=== PATIENT | male | born 1975 | race Caucasian/White ===

== ENCOUNTER 2023-01-22 11:29 | Inpatient (IN) | payer MEDICAID, OTHER ==
[~2023-01-22] VITALS: Ht 177.8 cm; Wt 67.4 kg
[~2023-01-22 11:29] MED LIST: ACHD5005 PO; AMLODIPINE; LISINOPRIL; ZYRTEC
[2023-01-22] MEDS ORDERED: cefTRIAXone IV/IM 1,000 MG in NS (IVPB) 50 ML 50 ML IV ONE (11:45)
[2023-01-22] MEDS ORDERED: RT-ALBUTEROL/IPRATROPIUM 3 ML (DUONEB) VIAL INH ONE (11:45)
[2023-01-22] MEDS ORDERED: NS IV 1000 ML 1,000 ML IV SCH (11:45)
[2023-01-22] MEDS ORDERED: methylPREDNISolone 125 MG (Solu-MEDROL) VIAL IVP ONE (11:45)
--- NOTE | 2023-01-22 11:47 | ED Respiratory ---
General Chief Complaint: Respiratory Problems Stated Complaint: SOA Nursing Triage Note: ARRIVED VIA AMB TO ROOM 5 WITH COMPLAINTS OF SOA AND A COUGH FOR SEVERAL DAYS. STATES HIS SIDES HURT FROM COUGHING. Source: patient Exam Limitations: no limitations History of Present Illness Date Seen by Provider: Jan 22, 2023 Time Seen by Provider: 11:45 Initial Comments Patient is a 47-year-old male with a history of COPD, smoking who presents to ED with shortness of breath and cough. He states symptoms have been ongoing for the past month progressive got worse over the past week. Report mucus production with this cough. Reports bilateral rib pain secondary to the cough. Increasing short of breath with walking or lying. Denies any leg swelling. No known history of coronary artery disease, CHF. Does have a nebulizer at home but has not been using any breathing treatments. Patient states he has been using cough syrup at home to help with sleep. Patient oxygen level 88% on room air on arrival. Patient Was placed on 2 L with improvement. Decreased breath sounds bilateral. Denies fever, chills, sore throat, ear pain, headache, dizziness, chest pain. Patient does take lisinopril for hypertension. Difficulty talking in complete senses Allergies and Home Medications Allergies Coded Allergies: No Known Drug Allergies (Unverified , 03/24/15) Patient Home Medication List Home Medication List Reviewed: Yes Hydrocodone Bit/Acetaminophen (Lortab 5 Mg Tablet) 1 Each Tablet, 2 EACH PO Q6H PRN for PAIN Prescribed by: CUBA REESE on 11/29/152106 [Amlodipine] , (Reported) Entered as Reported by: FERNANDO PARKER on 03/24/158 [Lisinopril] , (Reported) Entered as Reported by: FERNANDO PARKER on 03/24/158 [Zyrtec] , (Reported) Entered as Reported by: FERNANDO PARKER on 03/24/158 Review of Systems Review of Systems Constitutional: No chills, No diaphoresis, No malaise, No weakness EENTM: No ear pain, No blurred vision Gastrointestinal: No abdominal pain, No nausea, No vomiting Genitourinary: No decreased output, No discharge, No dysuria, No frequency Musculoskeletal: No back pain, No joint pain, No joint swelling, No muscle pain, No muscle stiffness Skin: No change in color, No change in hair/nails All Other Systems Reviewed Negative Unless Noted: Yes Past Exinikm-Llwdhe-Vqktfl Hx Patient Social History Tobacco Use?: Yes Smoking Status: Former Smoker Substance use?: No Substance frequency: Once in a while Alcohol Use?: Yes Alcohol Frequency: Once in a while Immunizations Up To Date Tetanus Booster (TDap): Unknown Seasonal Allergies Seasonal Allergies: Yes Past Medical History Hypertension Gastroesophageal Reflux Physical Exam Vital Signs - First Documented 01/22/23 01/22/23 01/22/23 11:30 11:32 12:23 Temp 39.6 Pulse 127 Resp 18 B/P (MAP) 197/100 (132) Pulse Ox 87 O2 Delivery Room Air O2 Flow Rate 2.00 FiO2 50 Capillary Refill : Less Than 3 Seconds Height: 5'10" Weight: 175lbs. oz. 79.608902oe; 22.00 BMI Method:Stated General Appearance: mild distress, other Eyes: Bilateral Eye Normal Inspection, Bilateral Eye PERRL, Bilateral Eye EOMI HEENT: PERRL/EOMI, normal ENT inspection, TMs normal, pharynx normal Neck: non-tender, full range of motion, supple Respiratory: decreased breath sounds, accessory muscle use, other Cardiovascular: no gallop, no JVD, tachycardia Gastrointestinal: normal bowel sounds, non tender, soft, no organomegaly Extremities: normal range of motion, non-tender, normal inspection, no pedal edema, no calf tenderness Neurologic/Psychiatric: rod buster II-XII nml as tested, no motor/sensory deficits, alert, normal mood/affect, oriented x 3 Skin: normal color, warm/dry Focused Exam Lactate Level 01/22/23 11:45: Lactic Acid Level 1.64 Lactic Acid Level Laboratory Tests Test 01/22/23 11:45 Lactic Acid Level 1.64 MMOL/L (0.50-2.00) Progress/Results/Core Measures Suspected Sepsis SIRS Temperature: Pulse: 127 Respiratory Rate: 18 Laboratory Tests 01/22/23 11:45: White Blood Count 22.7H Blood Pressure 197 /100 Mean: 132 01/22/23 11:45: Lactic Acid Level 1.64 Laboratory Tests 01/22/23 11:45: Creatinine 0.76, INR Comment 1.2, Platelet Count 433H, Total Bilirubin 0.8 Results/Orders Lab Results Laboratory Tests Test 01/22/23 11:45 01/22/23 11:50 01/22/23 11:57 Range/Units White Blood Count 22.7 H 4.3-11.0 10^3/uL Red Blood Count 4.97 4.30-5.52 10^6/uL Hemoglobin 13.7 13.3-17.7 g/dL Hematocrit 41 40-54 % Mean Corpuscular Volume 83 80-99 fL Mean Corpuscular Hemoglobin 28 25-34 pg Mean Corpuscular Hemoglobin Concent 33 32-36 g/dL Red Cell Distribution Width 12.5 10.0-14.5 % Platelet Count 433 H 130-400 10^3/uL Mean Platelet Volume 8.7 L 9.0-12.2 fL Immature Granulocyte % (Auto) 1 % Neutrophils (%) (Auto) 86 H 42-75 % Lymphocytes (%) (Auto) 3 L 12-44 % Monocytes (%) (Auto) 9 0-12 % Eosinophils (%) (Auto) 1 0-10 % Basophils (%) (Auto) 1 0-10 % Neutrophils # (Auto) 19.5 H 1.8-7.8 10^3/uL Lymphocytes # (Auto) 0.6 L 1.0-4.0 10^3/uL Monocytes # (Auto) 2.1 H 0.0-1.0 10^3/uL Eosinophils # (Auto) 0.2 0.0-0.3 10^3/uL Basophils # (Auto) 0.1 0.0-0.1 10^3/uL Immature Granulocyte # (Auto) 0.2 H 0.0-0.1 10^3/uL Neutrophils % (Manual) 84 % Lymphocytes % (Manual) 3 % Monocytes % (Manual) 5 % Eosinophils % (Manual) 2 % Band Neutrophils 4 % Reactive Lymphocytes 2 % Clumped Platelets SLIGHT Prothrombin Time 15.3 H 12.2-14.7 SEC INR Comment 1.2 0.8-1.4 Activated Partial Thromboplast Time 35 24-35 SEC Sodium Level 135 135-145 MMOL/L Potassium Level 2.7 L 3.6-5.0 MMOL/L Chloride Level 94 L 98-107 MMOL/L Carbon Dioxide Level 27 21-32 MMOL/L Anion Gap 14 5-14 MMOL/L Blood Urea Nitrogen 6 L 7-18 MG/DL Creatinine 0.76 0.60-1.30 MG/DL Estimat Glomerular Filtration Rate 110 BUN/Creatinine Ratio 8 Glucose Level 118 H 70-105 MG/DL Lactic Acid Level 1.64 0.50-2.00 MMOL/L Calcium Level 9.4 8.5-10.1 MG/DL Corrected Calcium 10.0 8.5-10.1 MG/DL Total Bilirubin 0.8 0.1-1.0 MG/DL Aspartate Amino Transf (AST/SGOT) 17 5-34 U/L Alanine Aminotransferase (ALT/SGPT) 17 0-55 U/L Alkaline Phosphatase 96 40-136 U/L Troponin I < 0.028 <0.028 NG/ML B-Type Natriuretic Peptide 132.4 H <100.0 PG/ML Total Protein 6.9 6.4-8.2 GM/DL Albumin 3.2 3.2-4.5 GM/DL Influenza Type A (RT-PCR) Not Detected Not Detecte Influenza Type B (RT-PCR) Not Detected Not Detecte SARS-CoV-2 RNA (RT-PCR) Not Detected Not Detecte Blood Gas Puncture Site Blood Gas Patient Temperature Arterial Blood pH 7.52 H 7.37-7.43 Arterial Blood Partial Pressure CO2 38 35-45 MMHG Arterial Blood Partial Pressure O2 52 L 79-93 MMHG Arterial Blood HCO3 31 H 23-27 MMOL/L Arterial Blood Total CO2 32.4 H 21.0-31.0 MMOL/L Arterial Blood Oxygen Saturation 91 L 94-100 % Arterial Blood Base Excess 7.9 H -2.5-2.5 MMOL/L Raymundo Test Blood Gas Ventilator Setting Blood Gas Inspired Oxygen My Orders Orders - MAYITO BREWER Albuterol/Ipra Inhalation Soln (Duoneb I (01/22/23 11:45) Svn Small Volume Nebulizer (01/22/23 11:42) Cbc With Automated Diff (01/22/23 11:42) Comprehensive Metabolic Panel (01/22/23 11:42) Blood Culture (01/22/23 11:42) Sputum Culture (01/22/23 11:42) Urinalysis (01/22/23 11:42) Urine Culture (01/22/23 11:42) Protime With Inr (01/22/23 11:42) Partial Thromboplastin Time (01/22/23 11:42) Chest 1 View, Ap/Pa Only (01/22/23 11:42) Ed Iv/Invasive Line Start (01/22/23 11:42) Troponin I Kike (01/22/23 11:42) Vital Signs Adult Sepsis Patie Q15M (01/22/23 11:42) O2 (01/22/23 11:42) Lactic Acid Analyzer (01/22/23 11:42) Influenza A And B By Pcr (01/22/23 11:42) Ns Iv 1000 Ml (Sodium Chloride 0.9%) (01/22/23 11:45) Ceftriaxone Iv/Im (Rocephin Iv/Im) (01/22/23 11:45) Covid 19 Inhouse Test (01/22/23 11:42) Methylprednisolone Sod Succ (Solu-Medrol (01/22/23 11:45) Ekg Tracing (01/22/23 11:47) Bnp Kike (01/22/23 11:47) Manual Differential (01/22/23 11:45) Arterial Blood Gas (01/22/23 12:00) Acetaminophen Tablet (Tylenol Tablet) (01/22/23 12:30) Potassium Chloride (Tablet) (K Dur Table (01/22/23 12:30) Azithromycin Injection (Zithromax Inject (01/22/23 12:56) Cefepime Injection (Maxipime Injection) (01/22/23 13:00) Medications Given in ED Current Medications Medications Dose Ordered Sig/Fay Route Start Time Stop Time Status Last Admin Dose Admin Acetaminophen 1,000 mg ONCE ONCE PO 01/22/23 12:30 01/22/23 12:31 DC 01/22/23 12:31 1,000 MG Albuterol/ Ipratropium 3 ml ONCE ONCE INH 01/22/23 11:45 01/22/23 11:46 DC 01/22/23 11:50 3 ML Cefepime HCl 2000 mg/Sodium Chloride 50 ml @ 100 mls/hr ONCE ONCE IV 01/22/23 13:00 01/22/23 13:29 DC 01/22/23 14:11 100 MLS/HR Ceftriaxone Sodium 1000 mg/ Sodium Chloride 50 ml @ 100 mls/hr ONCE ONCE IV 01/22/23 11:45 01/22/23 12:14 DC 01/22/23 12:15 100 MLS/HR Methylprednisolone Sodium Succinate 125 mg ONCE ONCE IVP 01/22/23 11:45 01/22/23 11:46 DC 01/22/23 11:53 125 MG Potassium Chloride 40 meq ONCE ONCE PO 01/22/23 12:30 01/22/23 12:31 DC 01/22/23 12:31 40 MEQ Vital Signs/I&O 01/22/23 01/22/23 01/22/23 01/22/23 11:30 11:32 11:50 12:20 Temp 39.6 39.6 Pulse 127 127 Resp 18 18 B/P (MAP) 197/100 (132) 174/102 Pulse Ox 87 94 94 93 O2 Delivery Room Air Nasal Cannula Nasal Cannula Nasal Cannula O2 Flow Rate 2.00 2.00 2.00 01/22/23 01/22/23 01/22/23 12:22 12:23 12:31 Temp 39.6 Pulse 129 B/P (MAP) 178/119 (138) Pulse Ox 93 95 O2 Delivery Nasal Cannula Vapotherm O2 Flow Rate 2.00 25.00 FiO2 50 Capillary Refill : Less Than 3 Seconds Blood Pressure Mean: 132 ECG Comment Sinus tachycardia, nonspecific ST and T wave abnormality, 126 bpm, QRS duration 101 MS, QTc 407 MS Departure Communication (PCP) Reviewed previous ER visits, H&P, lab testing. Differential diagnosis, COPD exacerbation, pneumonia, viral syndrome, CHF. Presents ED with shortness of breath and cough over the past month worse over the past week. Woke up this morning difficulty catching his breath. On arrival oxygen 88% on room air. Was placed on 2 L nasal cannula for comfort and improvement. Difficulty talking in complete sentences. Had a temperature 103. Sepsis protocol was initiated. Blood cultures and lactic acid with generalized lab work. Chest x-ray. Started on a DuoNeb breathing treatment and was given IV Solu-Medrol 125 mg. Every day smoker. Denies breathing treatments at home. CBC showed a white blood count of 22. Potassium of 2.7, chloride 97. Normal kidney function. Normal troponin. BNP 132. Does not appear to be fluid overload. No previous cardiac work-up. ABG was ordered. pH of 7.52, PCO2 of 38, PO2 of 52. Breathing slightly improved. Patient was placed on Vapotherm with improvement. Oxygen remained 97 to 98% on Vapotherm. COVID influenza was ordered which were negative. Chest x-ray shows right pleural effusion with potential superimposed pneumonia. Patient initially received Rocephin was given azithromycin. Patient was discussed with hospitalist Dr. Holland. Agreed to accept patient. Recommend starting cefepime. Patient will be admitted to the ICU. Patient agrees with admission. Denies of any known cardiac history. No evidence of lower leg swelling. Patient did receive 1 L fluid initially. Normal lactic acid. Concern for COPD exacerbation, pneumonia, sepsis. Patient is on Vapotherm Impression Primary Impression: Pneumonia Additional Impression: Sepsis Disposition: ADMITTED INPATIENT Condition: Stable Admissions Decision to Admit Reason: Admit from ER (General) Decision to Admit/Date: Jan 22, 2023 Time/Decision to Admit Time: 12:58 Departure-Patient Inst. Referrals: NO,LOCAL PHYSICIAN (PCP/Family) Primary Care Physician MAYITO BREWER Jan 22, 2023 11:47
[2023-01-22 12:00] LABS: BASOPHILS # (AUTO) 0.1 10^3/uL (0.0-0.1); BASOPHILS % (AUTO) 1 % (0-10); EOSINOPHILS # (AUTO) 0.2 10^3/uL (0.0-0.3); EOSINOPHILS % (AUTO) 1 % (0-10); HEMATOCRIT 41 % (40-54); HEMOGLOBIN 13.7 g/dL (13.3-17.7); LYMPHOCYTES # (AUTO) 0.6 10^3/uL (1.0-4.0); LYMPHOCYTES % (AUTO) 3 % (12-44); MEAN CORPUSCULAR HEMOGLOBIN 28 pg (25-34); MEAN CORPUSCULAR HGB CONC 33 g/dL (32-36); MEAN CORPUSCULAR VOLUME 83 fL (80-99); MEAN PLATELET VOLUME 8.7 fL (9.0-12.2); MONOCYTES # (AUTO) 2.1 10^3/uL (0.0-1.0); MONOCYTES % (AUTO) 9 % (0-12); NEUTROPHILS # (AUTO) 19.5 10^3/uL (1.8-7.8); NEUTROPHILS % (AUTO) 86 % (42-75); PLATELET COUNT 433 10^3/uL (130-400); WHITE BLOOD COUNT 22.7 10^3/uL (4.3-11.0)
[2023-01-22 12:10] LABS: ALBUMIN 3.2 GM/DL (3.2-4.5); CHLORIDE 94 MMOL/L (98-107); POTASSIUM 2.7 MMOL/L (3.6-5.0); SODIUM 135 MMOL/L (135-145)
[2023-01-22 12:11] LABS: ABG BASE EXCESS 7.9 MMOL/L (-2.5-2.5); ABG OXYGEN SATURATION 91 % (94-100); ABG PCO2 38 MMHG (35-45); ABG PH 7.52 (7.37-7.43); ABG PO2 52 MMHG (79-93); ABG TCO2 32.4 MMOL/L (21.0-31.0)
[2023-01-22 12:12] LABS: CALCIUM 9.4 MG/DL (8.5-10.1); INR 1.2 (0.8-1.4); PROTHROMBIN TIME PATIENT 15.3 SEC (12.2-14.7)
[2023-01-22 12:13] LABS: GLUCOSE 118 MG/DL (70-105); TOTAL PROTEIN 6.9 GM/DL (6.4-8.2)
[2023-01-22 12:14] LABS: CARBON DIOXIDE 27 MMOL/L (21-32)
[2023-01-22 12:15] LABS: BILIRUBIN,TOTAL 0.8 MG/DL (0.1-1.0)
[2023-01-22 12:16] LABS: ALKALINE PHOSPHATASE 96 U/L (40-136); CREATININE SERUM 0.76 MG/DL (0.60-1.30); GFR ESTIMATED 110
[2023-01-22 12:17] LABS: BUN/CREATININE RATIO 8
[2023-01-22 12:19] LABS: ALANINE AMINOTRANSFERASE 17 U/L (0-55); BAND NEUTROPHILS 4 %; EOSINOPHILS % (MANUAL) 2 %; LYMPHOCYTES % (MANUAL) 3 %; MONOCYTES % (MANUAL) 5 %; NEUTROPHILS % (MANUAL) 84 %; PLATELET CLUMPS SLIGHT; REACTIVE LYMPHOCYTES 2 %
[2023-01-22] MEDS ORDERED: KCL 20 MEQ TAB (K-DUR) PO ONE ×3 (12:30→21:45)
[2023-01-22] MEDS ORDERED: ACETAMINOPHEN 500 MG TABLET PO ONE (12:30)
--- NOTE | 2023-01-22 12:45 | Diagnostic Imaging Report ---
EXAM: CHEST 1 VIEW, AP/PA ONLY. INDICATION: Shortness of air. Cough. COMPARISON: None. FINDINGS: Dense airspace opacity in the right lung base and moderate right pleural effusion. Normal heart size and central pulmonary vascularity. Left lung is clear. No pneumothorax. No acute osseous findings. IMPRESSION: Moderate right pleural effusion and atelectasis with or without infiltrate in the right lung base. Dictated by: Dictated on workstation # [id number]
[2023-01-22] MEDS ORDERED: AZITHROMYCIN INJECTION 500 MG in NS (IVPB) 250 ML 250 ML IV STA (12:56)
[2023-01-22] MEDS ORDERED: CEFEPIME INJECTION 2,000 MG in NS (IVPB) 50 ML 50 ML IV ONE (13:00)
[2023-01-22 15:09] VITALS: BP 162/101
[2023-01-22] MEDS ORDERED: RT-ALBUTEROL/IPRATROPIUM 3 ML (DUONEB) VIAL INH PRN (15:15)
[2023-01-22] MEDS ORDERED: CEFEPIME 2,000 MG/NS 50 ML IVPB IV SCH ×2 (16:00)
[2023-01-22] MEDS: LACTATED RINGERS 1,000 ML IV SCH (16:12)
--- NOTE | 2023-01-22 17:34 | Tele-ICU Consult ---
History of Present Illness History of Present Illness Date Seen by Provider: Jan 22, 2023 Time Seen by Provider: 17:33 Date of Admission 01/22/23 History of Present Illness (Tele-ICU Physician , consultation report as requested by PCP ) Service provided via interactive audio and video telecommunications E-CARE system to a patient admitted to ICU bed in [facility]. Patient is seen today due to persistent need of ICU care Available chart/ vitals / labs / Images reviewed Video assessment done using teleICU camera, rest of exam as per RN He is a 47-year-old male with past medical history of COPD and longstanding history of smoking presented to the emergency room with progressively worsening shortness of breath associated with a cough and some sputum production. He does not know whether he had any fever however he is states that he had chest pains bilaterally whenever he coughs. In the emergency room chest x-ray done showed a right sided moderate to large pleural effusion with possible underlying infiltrate. He is a hypoxic requiring supplemental oxygen. He is admitted to intensive care unit for close monitoring and management. Impression 1. Right lower lobe pneumonia with possible parapneumonic effusion 2. Exacerbation of COPD with hypoxic respiratory failure 3. Tobacco abuse history. 4. hypokalemia Recommendations 1. Agree with the supplemental oxygen 2. Antibiotic per primary care physician 3. Suggest bronchodilator therapy 4. Suggest a general surgery consult for possible pleural tap. 5. DVT prophylaxis 6. kcl supplementation Coordination of care with primary care physician along with bedside consultants. I am remotely monitoring this patient from Tele icu station in [place]. I am unable to do the bedside exam, and history/physical and pertinent information is taken from other notes in the computer and bedside staff. Certain portions of this document may have been dictated utilizing voice recognition technology such as [employer]. Inherent to this technology, typographical and grammatical errors may exist. As much as I am diligent to identify and correct to these mistakes, some errors may remain in the document. Critical care time devoted to this patient today is approximately is 35 minutes-- Allergies and Home Medications Allergies Coded Allergies: No Known Drug Allergies (Unverified , 03/24/15) Home Medications Hydrocodone Bit/Acetaminophen 1 Each Tablet, 2 EACH PO Q6H PRN for PAIN Prescribed by: CUBA REESE on 11/29/155 Past Medical/Social/Family Hx Patient Social History Tobacco Use?: No Smoking Status: Former Smoker Smokeless Tobacco Frequency: Never a User Use of E-Cig and/or Vaping dev: No Substance use?: No Substance frequency: Once in a while Alcohol Use?: Yes Alcohol type: Beer Alcohol Frequency: Couple times a week Pt stated abuse/neglect: No Immunizations Up To Date Influenza Vaccine Up-to-Date: No; Not Current Current Status Advance Directives: No Communicates: Verbally Primary Language: Maori Preferred Spoken Language: Maori Is interpretation needed?: No Implanted or Applied Medical D: None Review of Systems Constitutional: see HPI, weakness Respiratory: cough, dyspnea on exertion Focused Exam Lactate Level 01/22/23 11:45: Lactic Acid Level 1.64 Height, Weight, BMI Height: 5'10" Weight: 175lbs. oz. 79.612415on; 24.07 BMI Method:Stated Exam Exam Patient acknowledged, consented, and participated in this virtual visit which was conducted using real time audio/video Vital Signs Date Time Temp Pulse Resp B/P (MAP) Pulse Ox O2 Delivery O2 Flow Rate FiO2 01/22/23 17:00 101 23 160/97 (118) 94 Vapotherm 20.00 50.00 01/22/23 16:00 94 16 176/113 (134) 97 Vapotherm 20.00 50.00 01/22/23 16:00 98 Vapotherm 20.00 50 01/22/23 15:52 35.9 01/22/23 15:09 106 97 50 01/22/23 15:00 106 20 162/101 (121) 97 Vapotherm 20.00 50.00 01/22/23 14:49 97 Vapotherm 20.00 50 01/22/23 14:45 100 01/22/23 14:45 164/100 (121) 01/22/23 14:45 Vapotherm 20.00 50 01/22/23 14:35 102 18 157/98 96 Vapotherm 20.00 01/22/23 12:31 39.6 01/22/23 12:23 95 Vapotherm 25.00 50 01/22/23 12:22 129 178/119 (138) 93 Nasal Cannula 2.00 01/22/23 12:20 39.6 127 18 174/102 93 Nasal Cannula 2.00 01/22/23 11:50 94 Nasal Cannula 2.00 01/22/23 11:32 94 Nasal Cannula 2.00 01/22/23 11:30 39.6 127 18 197/100 (132) 87 Room Air Height & Weight Height: 5'10" Weight: 175lbs. oz. 79.607840jy; 24.07 BMI Method:Stated General Appearance: Chronically ill, Mild Distress Capillary Refill: Less Than 3 Seconds Gastrointestinal: normal bowel sounds, non tender, soft, no organomegaly Results Lab Laboratory Tests 01/22/23 11:45 Assessment/Plan Assessment/Plan as above Critical Care: Critically Ill Patient Time spent with patient (mins): 35 HAYLEY ONEILL MD Jan 22, 2023 17:34
[2023-01-22] MEDS ORDERED: NS IV 500 ML 500 ML IV PRN (19:00)
[2023-01-22] MEDS: RT-ALBUTEROL/IPRATROPIUM 3 ML (DUONEB) VIAL INH SCH ×2 (19:04→22:38)
[2023-01-22] MEDS: ENOXAPARIN 40 MG/0.4 ML SYRINGE SC SCH (20:42)
[2023-01-22] MEDS: CEFEPIME INJECTION 1,000 MG in NS (IVPB) 50 ML 50 ML IV SCH (20:47)
[2023-01-22] MEDS ORDERED: CEFEPIME INJECTION 2,000 MG in NS (IVPB) 50 ML 50 ML IV SCH (21:00)
[2023-01-23] MEDS: LACTATED RINGERS 1,000 ML IV SCH ×2 (00:52→08:12)
[2023-01-23] MEDS: RT-ALBUTEROL/IPRATROPIUM 3 ML (DUONEB) VIAL INH SCH ×6 (02:46→21:44)
[2023-01-23] MEDS: CEFEPIME INJECTION 1,000 MG in NS (IVPB) 50 ML 50 ML IV SCH ×4 (02:50→20:19)
[2023-01-23 04:17] LABS: ABG BASE EXCESS 6.6 MMOL/L (-2.5-2.5); ABG OXYGEN SATURATION 95 % (94-100); ABG PCO2 46 MMHG (35-45); ABG PH 7.44 (7.37-7.43); ABG PO2 67 MMHG (79-93); ABG TCO2 32.2 MMOL/L (21.0-31.0); ALLENS TEST YES-POS; INSPIRED O2 40%; VENTILATOR NO
[2023-01-23 05:17] LABS: BASOPHILS % (AUTO) 0 % (0-10); EOSINOPHILS % (AUTO) 0 % (0-10); HEMATOCRIT 37 % (40-54); HEMOGLOBIN 12.1 g/dL (13.3-17.7); LYMPHOCYTES # (AUTO) 0.6 10^3/uL (1.0-4.0); LYMPHOCYTES % (AUTO) 3 % (12-44); MEAN CORPUSCULAR HEMOGLOBIN 27 pg (25-34); MEAN CORPUSCULAR HGB CONC 33 g/dL (32-36); MEAN CORPUSCULAR VOLUME 83 fL (80-99); MEAN PLATELET VOLUME 8.7 fL (9.0-12.2); MONOCYTES % (AUTO) 5 % (0-12); NEUTROPHILS # (AUTO) 18.6 10^3/uL (1.8-7.8); NEUTROPHILS % (AUTO) 91 % (42-75); PLATELET COUNT 365 10^3/uL (130-400); WHITE BLOOD COUNT 20.4 10^3/uL (4.3-11.0)
[2023-01-23 05:42] LABS: ALBUMIN 2.6 GM/DL (3.2-4.5); BILIRUBIN,TOTAL 0.2 MG/DL (0.1-1.0); CALCIUM 8.8 MG/DL (8.5-10.1); CREATININE SERUM 0.75 MG/DL (0.60-1.30); POTASSIUM 3.2 MMOL/L (3.6-5.0); TOTAL PROTEIN 5.9 GM/DL (6.4-8.2)
[2023-01-23] MEDS: POTASSIUM CL 10MEQ/50ML IVPB 50 ML IV SCH (05:52)
[2023-01-23] MEDS: KCL 20 MEQ TAB (K-DUR) PO SCH ×3 (05:52→08:10)
[2023-01-23] MEDS: MAGNESIUM 1 GM/100 ML IVPB 100 ML IV SCH (06:00)
[2023-01-23] MEDS: AZITHROMYCIN INJECTION 500 MG in NS (IVPB) 250 ML 250 ML IV SCH (08:10)
[2023-01-23] MEDS ORDERED: MTP25TSR PO (08:55)
--- NOTE | 2023-01-23 09:40 | Tele-ICU Progress Note ---
Subjective Date Seen by a Provider: Jan 23, 2023 Time Seen by a Provider: 09:39 Subjective/Events-last exam (Tele-ICU Physician , Progress Note ) Service provided via interactive audio and video telecommunications E-CARE system to a patient admitted to ICU bed in [facility]. Patient is seen today due to persistent need of ICU care Available chart/ vitals / labs / Images reviewed Video assessment done using teleICU camera, rest of exam as per RN Discussed with RN Events overnight : Afebrile hemodynamically stable Respiratory - I/O = Drips: LR 125 Pressors- no Hospital course: 01/22 47 y/o M - Pneumonia - Vaportherm. 01/23- VT 15 L 40 % , Stopped IVF A/P Acute hypoxix resp failure - VT 15 L 40% Right lower lobe pneumonia with possible parapneumonic effusion - abx started Right effusion - follow on cxr , might need to be tapped AECOPD - nebs ( not on steroids now - as per bedside assessment ) ETOH - vitamins hyperglycemia - to follow acchucheck Lines : periph , (Central Line Necessity Reviewed) Quiroz: void OG: Nutrition: po Analgesia: Anxiety/ delirium VTE Prophylaxis: tali 40 Stress Ulcer Prophylaxis: Plans in collaboration with bedside consultants and IM MDs. Discussed with RN to reach out if any questions or concerns Case and care daily discussed on multidisciplinary rounds ( RN, PharmD, [employer] , Respiratory Therapy, healthcare social worker ) A total of 20 minutes of critical care time was devoted to this patient today, required to treat and/or prevent further deterioration of critical care condition ( as above ) . I am remotely monitoring this patient from another state. I am unable to do the bedside exam, and history/physical and pertinent information is taken from other notes in the computer and bedside staff. Sepsis Event Evaluation Height, Weight, BMI Height: 5'10" Weight: 175lbs. oz. 79.615447gp; 24.07 BMI Method:Stated Focused Exam Lactate Level 01/22/23 11:45: Lactic Acid Level 1.64 Exam Exam Patient acknowledged, consented, and participated in this virtual visit which was conducted using real time audio/video Vital Signs Date Time Temp Pulse Resp B/P (MAP) Pulse Ox O2 Delivery O2 Flow Rate FiO2 01/23/23 09:00 91 164/92 (127) 90 Vapotherm 15.00 40.00 01/23/23 08:00 92 Vapotherm 15.00 40 01/23/23 08:00 102 182/100 (133) 93 Vapotherm 15.00 40.00 01/23/23 07:48 36.0 01/23/23 07:07 95 Vapotherm 15.00 40 01/23/23 07:00 101 174/102 (135) 91 Vapotherm 15.00 40.00 01/23/23 07:00 83 01/23/23 06:00 82 173/93 (119) 95 Vapotherm 15.00 40.00 01/23/23 05:00 82 173/94 (120) 96 Vapotherm 15.00 40.00 01/23/23 04:00 94 Vapotherm 15.00 40 01/23/23 04:00 74 21 175/99 (124) 97 Vapotherm 15.00 40.00 01/23/23 03:41 36.2 01/23/23 03:00 73 21 160/92 (114) 97 Vapotherm 15.00 40.00 01/23/23 02:47 97 Vapotherm 15.00 40 01/23/23 02:00 79 21 161/92 (115) 96 Vapotherm 15.00 40.00 01/23/23 01:00 81 17 158/85 (109) 95 Vapotherm 15.00 40.00 01/23/23 00:44 81 01/23/23 00:00 89 24 154/91 (112) 95 Vapotherm 15.00 40.00 01/22/23 23:59 96 Vapotherm 15.00 40 01/22/23 23:39 36.3 01/22/23 23:00 90 16 161/94 (116) 95 Vapotherm 15.00 40.00 01/22/23 22:38 95 Vapotherm 15.00 40 01/22/23 22:00 93 12 168/104 (125) 94 Vapotherm 15.00 40.00 01/22/23 21:00 90 29 158/94 (115) 95 Vapotherm 15.00 40.00 01/22/23 20:00 89 27 177/99 (125) 96 Vapotherm 15.00 40.00 01/22/23 20:00 95 Vapotherm 15.00 40 01/22/23 19:04 98 Vapotherm 20.00 50 01/22/23 19:00 100 01/22/23 19:00 95 30 163/97 (119) 91 Vapotherm 15.00 40.00 01/22/23 18:00 96 20 185/71 (109) 91 Vapotherm 20.00 50.00 01/22/23 17:00 101 23 160/97 (118) 94 Vapotherm 20.00 50.00 01/22/23 16:00 94 16 176/113 (134) 97 Vapotherm 20.00 50.00 01/22/23 16:00 98 Vapotherm 20.00 50 01/22/23 15:52 35.9 01/22/23 15:09 106 97 50 01/22/23 15:00 106 20 162/101 (121) 97 Vapotherm 20.00 50.00 01/22/23 14:49 97 Vapotherm 20.00 50 01/22/23 14:45 100 01/22/23 14:45 164/100 (121) 01/22/23 14:45 Vapotherm 20.00 50 01/22/23 14:35 102 18 157/98 96 Vapotherm 20.00 01/22/23 12:31 39.6 01/22/23 12:23 95 Vapotherm 25.00 50 01/22/23 12:22 129 178/119 (138) 93 Nasal Cannula 2.00 01/22/23 12:20 39.6 127 18 174/102 93 Nasal Cannula 2.00 01/22/23 11:50 94 Nasal Cannula 2.00 01/22/23 11:32 94 Nasal Cannula 2.00 01/22/23 11:30 39.6 127 18 197/100 (132) 87 Room Air I & O 01/23/23 07:00 Intake Total 2200 ml Output Total 825 ml Balance 1375 ml Height & Weight Height: 5'10" Weight: 175lbs. oz. 79.225466eg; 24.07 BMI Method:Stated General Appearance: Chronically ill, Mild Distress Capillary Refill: Less Than 3 Seconds Gastrointestinal: normal bowel sounds, non tender, soft, no organomegaly Results Lab Laboratory Tests 01/22/23 11:45 01/23/23 05:08 Assessment/Plan Assessment/Plan 1 CHELA DICKERSON MD Jan 23, 2023 09:40
[2023-01-23] MEDS ORDERED: amLODIPine 10 MG TABLET PO ONE (10:30)
[2023-01-23] MEDS ORDERED: lisINopril 40 MG (PRINIVIL) TABLET PO ONE (10:30)
[2023-01-23] MEDS ORDERED: hydrALAZINE (APESOLINE) 20 MG/ML VIAL IV PRN (10:30)
[2023-01-23] MEDS: NICOTINE 14 MG (NICODERM) PATCH TD SCH (11:44)
[2023-01-23] MEDS ORDERED: guaiFENesin/DM (ROBITUSSIN DM) 10 ML UDC ONE (18:23)
[2023-01-23] MEDS: guaiFENesin/DM (ROBITUSSIN DM) 10 ML UDC PO PRN (18:25)
[2023-01-23] MEDS: ENOXAPARIN 40 MG/0.4 ML SYRINGE SC SCH (20:19)
[2023-01-23] MEDS: BENZONATATE 100 MG CAPSULE PO SCH (21:38)
[2023-01-23] MEDS: HYDROcodone/ACETAMINOPHEN 5 MG/325 MG TABLET PO PRN (21:39)
--- NOTE | 2023-01-23 21:49 | History & Physical-Hospitalist ---
History of Present Illness HPI/Chief Complaint Song Albarado is a 47 year old male with PMH HTN, COPD, tobacco abuse, who presented with shortness of breath. He has been feeling unwell for the past month but has worsened over the past week. He has been short of breath. He has had a cough with sputum. He denies fevers. He has had chest pain associated with coughing. He denies abdominal pain, nausea, vomiting, and diarrhea. He has not followed up with his doctor in over a year. He had been following at [facility]. Source: patient Exam Limitations: no limitations Date Seen 01/23/23 Time Seen by a Provider: 10:10 Attending Physician No,Local Physician PCP Admitting Physician: Benitez Conklin MD Attending Physician: Benitez Conklin MD Referring Physician Date of Admission Jan 22, 2023 at 14:49 Home Medications & Allergies Home Medications Reviewed patient Home Medication Reconciliation performed by pharmacy medication reconciliations operator technician and/or nursing. Patients Allergies have been reviewed. Allergies Allergies Coded Allergies No Known Drug Allergies (Unverified03/24/15) Past Awcrrje-Molyzs-Wcuizm Hx Patient Social History Tobacco Use?: No Smoking Status: Former Smoker Smokeless Tobacco Frequency: Never a User Use of E-Cig and/or Vaping dev: No Substance use?: No Substance frequency: Once in a while Alcohol Use?: Yes Alcohol type: Beer Alcohol Frequency: Couple times a week Pt feels they are or have been: No Seasonal Allergies Seasonal Allergies: Yes Current Status Advance Directives: No Communicates: Verbally Primary Language: Greenlandic Preferred Spoken Language: Greenlandic Is interpretation needed?: No Implanted or Applied Medical D: None Past Medical History Hypertension Gastroesophageal Reflux Family Medical History No Pertinent Family Hx Review of Systems Constitutional: malaise Respiratory: cough, phlegm, short of breath Cardiovascular: chest pain Gastrointestinal: no symptoms reported Physical Exam Physical Exam Vital Signs Vital Signs - First Documented 01/22/23 01/22/23 01/22/23 11:30 11:32 12:23 Temp 39.6 Pulse 127 Resp 18 B/P (MAP) 197/100 (132) Pulse Ox 87 O2 Delivery Room Air O2 Flow Rate 2.00 FiO2 50 Capillary Refill : Less Than 3 Seconds Height, Weight, BMI Height: 5'10" Weight: 175lbs. oz. 79.705592af; 24.07 BMI Method:Stated General Appearance: No Apparent Distress, WD/WN HEENT: PERRL/EOMI, Pharynx Normal Neck: Normal Inspection, Supple Respiratory: No Accessory Muscle Use, No Respiratory Distress, Decreased Breath Sounds Gastrointestinal: Normal Bowel Sounds, Non Tender, Soft Extremity: Normal Inspection, Non Tender, No Pedal Edema Neurologic/Psychiatric: Alert, Oriented x3, Normal Mood/Affect Skin: Normal Color, Warm/Dry Results Results/Procedures Labs Laboratory Tests 01/22/23 11:45 01/23/23 05:08 Patient resulted labs reviewed. Imaging: Reviewed Imaging Report Assessment/Plan Admission Diagnosis Sepsis due to pneumonia Admission Status: Inpatient Order (span 2 midnights) Reason for Inpatient Admission: IV antibiotics Respiratory failure Assessment and Plan Sepsis due to pneumonia Acute respiratory failure with hypoxia Parapneumonic effusion COPD Tobacco abuse HTN Cefepime and Azithromycin IV fluids Requiring Vapotherm, transition to nasal cannula Restart antihypertensives TeleICU following Repeat chest xray tomorrow morning DVT prophylaxis: Lovenox Critical Care Critically Ill Patient Diagnosis/Problems Diagnosis/Problems (1) Sepsis Status: Acute (2) Pneumonia Status: Acute (3) Acute respiratory failure with hypoxia Status: Acute (4) COPD (chronic obstructive pulmonary disease) Status: Chronic (5) Tobacco abuse Status: Chronic (6) Parapneumonic effusion Status: Acute (7) HTN (hypertension) Status: Acute Qualifiers: Hypertension type: primary hypertension Qualified Codes: I10 - Essential (primary) hypertension BENITEZ CONKLIN MD Jan 23, 2023 21:49
[2023-01-24] MEDS: guaiFENesin/DM (ROBITUSSIN DM) 10 ML UDC PO PRN ×4 (00:28→16:46)
[2023-01-24] MEDS: CEFEPIME INJECTION 1,000 MG in NS (IVPB) 50 ML 50 ML IV SCH ×4 (02:01→19:22)
[2023-01-24] MEDS: HYDROcodone/ACETAMINOPHEN 5 MG/325 MG TABLET PO PRN ×5 (02:18→20:55)
[2023-01-24] MEDS: RT-ALBUTEROL/IPRATROPIUM 3 ML (DUONEB) VIAL INH SCH ×6 (02:18→22:58)
[2023-01-24 04:35] LABS: BASOPHILS # (AUTO) 0.1 10^3/uL (0.0-0.1); BASOPHILS % (AUTO) 0 % (0-10); EOSINOPHILS # (AUTO) 0.2 10^3/uL (0.0-0.3); EOSINOPHILS % (AUTO) 1 % (0-10); HEMATOCRIT 37 % (40-54); HEMOGLOBIN 12.1 g/dL (13.3-17.7); LYMPHOCYTES % (AUTO) 6 % (12-44); MEAN CORPUSCULAR HEMOGLOBIN 28 pg (25-34); MEAN CORPUSCULAR HGB CONC 33 g/dL (32-36); MEAN CORPUSCULAR VOLUME 83 fL (80-99); MEAN PLATELET VOLUME 8.9 fL (9.0-12.2); MONOCYTES # (AUTO) 1.6 10^3/uL (0.0-1.0); MONOCYTES % (AUTO) 9 % (0-12); NEUTROPHILS % (AUTO) 83 % (42-75); PLATELET COUNT 402 10^3/uL (130-400)
[2023-01-24 04:57] LABS: ALBUMIN 2.7 GM/DL (3.2-4.5); BILIRUBIN,TOTAL 0.3 MG/DL (0.1-1.0); CALCIUM 8.6 MG/DL (8.5-10.1); CREATININE SERUM 0.72 MG/DL (0.60-1.30); MAGNESIUM 1.8 MG/DL (1.6-2.4); POTASSIUM 3.3 MMOL/L (3.6-5.0); TOTAL PROTEIN 5.8 GM/DL (6.4-8.2)
[2023-01-24] MEDS: MAGNESIUM 1 GM/100 ML IVPB 100 ML IV SCH ×3 (05:41→06:39)
[2023-01-24] MEDS: POTASSIUM CL 10MEQ/50ML IVPB 50 ML IV SCH (06:22)
[2023-01-24] MEDS: KCL 20 MEQ TAB (K-DUR) PO SCH (06:22)
[2023-01-24] MEDS: MULTIVIT W/MINERALS TAB (THERAGRAN M) PO SCH (07:42)
[2023-01-24] MEDS ORDERED: KCL 20 MEQ TAB (K-DUR) PO ONE ×2 (08:00→10:00)
[2023-01-24] MEDS: NICOTINE 14 MG (NICODERM) PATCH TD SCH (08:20)
[2023-01-24] MEDS: BENZONATATE 100 MG CAPSULE PO SCH ×3 (08:20→20:56)
[2023-01-24] MEDS: amLODIPine 5 MG TABLET PO SCH (08:21)
[2023-01-24] MEDS: lisINopril 40 MG (PRINIVIL) TABLET PO SCH (08:21)
[2023-01-24] MEDS: PATCH REMOVAL TP SCH (08:22)
[2023-01-24] MEDS: AZITHROMYCIN INJECTION 500 MG in NS (IVPB) 250 ML 250 ML IV SCH (08:22)
--- NOTE | 2023-01-24 08:30 | Diagnostic Imaging Report ---
INDICATION: Pneumonia TECHNIQUE: Single view chest 4:32 AM CORRELATION STUDY: 01/22/2023 FINDINGS: Increasing size of now moderately large right pleural effusion along with consolidation of the right lung extending to the right lung apex. Left lung generally stable. Heart size largely obscured but appears to be enlarged. Vasculature also appears to be mildly prominent. IMPRESSION: 1. Increasing size of a now moderately large right pleural effusion along with consolidation of the right lung. Dictated by: Dictated on workstation # [id number]
--- NOTE | 2023-01-24 10:20 | Tele-ICU Progress Note ---
Subjective Date Seen by a Provider: Jan 24, 2023 Time Seen by a Provider: 10:20 Subjective/Events-last exam (Tele-ICU Physician , Progress Note ) Service provided via interactive audio and video telecommunications E-CARE system to a patient admitted to ICU bed in [facility]. Patient is seen today due to persistent need of ICU care Available chart/ vitals / labs / Images reviewed Video assessment done using teleICU camera, rest of exam as per RN Discussed with RN Events overnight : Afebrile hemodynamically stable Respiratory - I/O = Drips: Pressors- no Hospital course: 01/22 47 y/o M - Pneumonia - Vaportherm. 01/23- VT 15 L 40 % , Stopped IVF 01/24 - 4L o2 , effusion , worse A/P Acute hypoxix resp failure - off VT , on 4 L NC Right lower lobe pneumonia with possible parapneumonic effusion - abx started Right effusion - large , worsening on cxr , consider thora AECOPD - nebs ( not on steroids now - as per bedside assessment ) ETOH - vitamins hyperglycemia - to follow acchucheck - to stop Lines : periph , (Central Line Necessity Reviewed) Quiroz: void OG: Nutrition: po Analgesia: Anxiety/ delirium VTE Prophylaxis: tali 40 Stress Ulcer Prophylaxis: Plans in collaboration with bedside consultants and IM MDs. Discussed with RN to reach out if any questions or concerns Case and care daily discussed on multidisciplinary rounds ( RN, PharmD, Lead Furnace Operator , Respiratory Therapy, transportation worker ) A total of 20 minutes of critical care time was devoted to this patient today, required to treat and/or prevent further deterioration of critical care condition ( as above ) . I am remotely monitoring this patient from another state. I am unable to do the bedside exam, and history/physical and pertinent information is taken from other notes in the computer and bedside staff. Sepsis Event Evaluation Height, Weight, BMI Height: 5'10" Weight: 175lbs. oz. 79.495043rb; 24.07 BMI Method:Stated Focused Exam Lactate Level 01/22/23 11:45: Lactic Acid Level 1.64 Exam Exam Patient acknowledged, consented, and participated in this virtual visit which was conducted using real time audio/video Vital Signs Date Time Temp Pulse Resp B/P (MAP) Pulse Ox O2 Delivery O2 Flow Rate FiO2 01/24/23 09:00 105 30 150/88 (108) 94 High Flow N/C 4.00 01/24/23 08:00 36.8 01/24/23 08:00 116 169/98 (121) 93 High Flow N/C 4.00 01/24/23 08:00 91 144/85 (104) 94 High Flow N/C 4.00 01/24/23 07:12 95 High Flow N/C 4.00 01/24/23 07:00 100 01/24/23 06:00 97 149/87 (107) 96 High Flow N/C 4.00 01/24/23 05:00 84 143/90 (107) 96 High Flow N/C 4.00 01/24/23 04:44 36.8 01/24/23 04:00 94 High Flow N/C 4.00 01/24/23 04:00 104 166/99 (121) 95 High Flow N/C 4.00 01/24/23 03:00 103 149/84 (105) 95 High Flow N/C 4.00 01/24/23 02:19 96 High Flow N/C 4.00 01/24/23 02:00 95 142/80 (100) 96 High Flow N/C 4.00 01/24/23 01:00 105 145/82 (103) 96 High Flow N/C 4.00 01/24/23 01:00 105 01/24/23 00:28 36.8 01/24/23 00:00 103 27 149/81 (103) 96 High Flow N/C 4.00 01/23/23 23:59 94 High Flow N/C 4.00 01/23/23 23:00 110 25 153/85 (107) 96 High Flow N/C 4.00 01/23/23 22:00 125 16 168/94 (115) 94 High Flow N/C 4.00 01/23/23 21:45 94 High Flow N/C 4.00 01/23/23 21:00 129 19 183/107 (139) 94 High Flow N/C 4.00 01/23/23 20:34 37.5 94 High Flow N/C 4.00 01/23/23 20:00 137 25 174/101 (126) 91 Vapotherm 15.00 40.00 01/23/23 20:00 94 High Flow N/C 4.00 01/23/23 19:00 145 01/23/23 19:00 145 19 192/110 (128) 91 Vapotherm 15.00 40.00 01/23/23 18:43 98 High Flow N/C 3.00 01/23/23 18:00 117 31 158/98 (127) 98 Vapotherm 15.00 40.00 01/23/23 17:00 106 22 160/97 (119) 95 Vapotherm 15.00 40.00 01/23/23 16:00 36.8 01/23/23 16:00 94 High Flow N/C 3.00 01/23/23 16:00 105 25 164/97 (121) 96 Vapotherm 15.00 40.00 01/23/23 15:00 109 33 180/104 (124) 91 Vapotherm 15.00 40.00 01/23/23 14:55 96 High Flow N/C 5.00 01/23/23 14:00 99 177/102 (133) 93 Vapotherm 15.00 40.00 01/23/23 13:00 97 94 Vapotherm 15.00 40.00 01/23/23 12:42 102 01/23/23 12:00 101 152/92 (120) 92 Vapotherm 15.00 40.00 01/23/23 12:00 96 High Flow N/C 5.00 01/23/23 11:49 36.4 01/23/23 11:00 101 164/91 (121) 94 Vapotherm 15.00 40.00 01/23/23 10:48 95 High Flow N/C 5.00 I & O 01/24/23 07:00 Intake Total 3180 ml Output Total 3050 ml Balance 130 ml Height & Weight Height: 5'10" Weight: 175lbs. oz. 79.416118ey; 24.07 BMI Method:Stated General Appearance: No Apparent Distress, WD/WN HEENT: PERRL/EOMI, Pharynx Normal Neck: Normal Inspection, Supple Respiratory: No Accessory Muscle Use, No Respiratory Distress, Decreased Breath Sounds Capillary Refill: Less Than 3 Seconds Gastrointestinal: normal bowel sounds, non tender, soft, no organomegaly Extremity: Normal Inspection, Non Tender, No Pedal Edema Neurologic/Psychiatric: Alert, Oriented x3, Normal Mood/Affect Skin: Normal Color, Warm/Dry Results Lab Laboratory Tests 01/22/23 11:45 01/23/23 05:08 01/24/23 04:23 Assessment/Plan Assessment/Plan 1 CHELA DICKERSON MD Jan 24, 2023 10:20
--- NOTE | 2023-01-24 11:38 | Progress Note - Hospitalist ---
DONNA SANTOS 01/24/23 1138: Subjective HPI/CC On Admission Date Seen by Provider: Jan 24, 2023 Time Seen by Provider: 11:15 Song Albarado is a 47 year old male with PMH HTN, COPD, tobacco abuse, who presented with shortness of breath. He has been feeling unwell for the past month but has worsened over the past week. He has been short of breath. He has had a cough with sputum. He denies fevers. He has had chest pain associated with coughing. He denies abdominal pain, nausea, vomiting, and diarrhea. He has not followed up with his doctor in over a year. He had been following at [facility]. Subjective/Events-last exam Song Albarado is a 47 yo M with a PMH of HTN, COPD, and tobacco use who presented to the ED on 01/22 for worsening shortness of breath, productive cough, and pleuritic pain affecting the right ribs. He was found to have pneumonia and a parapnuemonic effusion causing acute respiratory distress with hypoxia and was admitted to [facility]. This morning, he explains that his symptoms have been present for 1 month and but acutely worsened in this past week. At this time, he reports a persistent, productive non-bloody cough that is unchanged compared to admission. His SOB is slightly improved and most severe with coughing. His pleuritic pain is significantly improved and only present with intense coughing fits. He is stable on 4 L of supplemental oxygen by nasal canula. He has never had symptoms of this nature, been hospitalized for respiratory issues/SOB, or required supplemental oxygen at home. He states his SOB is typically only exertional and controlled by 2-3 puffs of albuterol per day. He has a 40 pack- year smoking history and quit 2 weeks ago when his illness began to worsen. He drinks roughly 12 alcoholic beverages per week. He denies other drug use. He admits to occasional, substernal chest pressure precipitated by exertion lasting 1-2 minutes; he has never seen a assembly supervisor or had stress testing. He denies chest pain at this time. He additionally denies N/V/D, chills, or dizziness. Review of Systems General: No Chills; Fatigue Pulmonary: Dyspnea, Cough (productive, non-bloody), Pleuritic Chest Pain (right lower ribs, minimal) Gastrointestinal: No: Nausea, Vomiting Focused Exam Sepsis Stage: Sepsis Lactate Level 01/22/23 11:45: Lactic Acid Level 1.64 Respiratory: Decreased Breath Sounds (throughout right lobe), Rales (right lobe base) Objective Exam Vital Signs Vital Signs Date Time Temp Pulse Resp B/P (MAP) Pulse Ox O2 Delivery O2 Flow Rate FiO2 01/24/23 10:34 93 High Flow N/C 4.00 01/24/23 09:00 105 30 150/88 (108) 01/24/23 08:00 36.8 01/23/23 08:00 40 Capillary Refill : Less Than 3 Seconds General Appearance: No Apparent Distress HEENT: PERRL/EOMI Neck: Non Tender, Supple Respiratory: No Chest Non Tender, No No Accessory Muscle Use, No No Respiratory Distress; Decreased Breath Sounds (throughout right lobe), Rales (right lower lobe) Cardiovascular: Regular Rate, Rhythm, No Edema, No Murmur, Normal Peripheral Pulses Gastrointestinal: Normal Bowel Sounds, Non Tender Neurologic/Psychiatric: Alert, Oriented x3 Skin: Normal Color, Damp (neck and upper extremities) Results/Procedures Lab Laboratory Tests 01/24/23 04:23 Patient resulted labs reviewed. Imaging: Reviewed Imaging Films, Reviewed Imaging Report Radiology Laboratory Tests Test 01/23/23 04:10 Blood Gas Puncture Site RR Blood Gas Patient Temperature UNK Arterial Blood pH 7.44 Arterial Blood Partial Pressure CO2 46 MMHG Arterial Blood Partial Pressure O2 67 MMHG Arterial Blood HCO3 31 MMOL/L Arterial Blood Total CO2 32.2 MMOL/L Arterial Blood Oxygen Saturation 95 % Arterial Blood Base Excess 6.6 MMOL/L Raymundo Test YES-POS Blood Gas Ventilator Setting NO Blood Gas Inspired Oxygen 40% Assessment/Plan Assessment and Plan Assess & Plan/Chief Complaint Pneumonia Parapneumonic effusion, right lobe Acute respiratory failure with hypoxia Sepsis - Azithromycin 500 mg and Cefepime 50 mL @ 100 mL; blood cultures pending - CXR 01/24 showing "increasing size of now moderately large right pleural effusion" compared to 01/22 CXR - requiring 4.00 L of supplemental oxygen by nasal canula (non-oxygen dependent at home) - surgery consulted for therapeutic thoracentesis - start incentive spirometry COPD Tobacco use - Duonebs 3mL - Nicotine patch 14 mg HTN - Metoprolol 25 mg - Amlodipine 10 mg - Lisinopril 40 mg - Hydralazine 10 mg Hypokalemia - improving; continue 40 KCl 40 mEq Will keep patient on ICU until completion of thoracentesis and and consider transition to med-surg depending on his state at that time. MARY PEÑA MD 01/24/23 8838: Assessment/Plan Assessment and Plan Assess & Plan/Chief Complaint Patient with worsening effusion on imaging. Discussed with surgery who requested us for possible paracentesis. Usg ordered. Still on 4lpm. BP well controlled on current regimen. Supervisory-Addendum Brief Verification & Attestation Participated in pt care: history, MDM, physical Personally performed: exam, history, MDM, supervision of care Care discussed with: Medical Student Procedures: n/a Results interpretation: Verified all documentation Verification and Attestation of Medical Student E/M Service A medical student performed and documented this service in my presence. I reviewed and verified all information documented by the medical student and made modifications to such information, when appropriate. I personally performed the physical exam and medical decision making. Mary Peña, Jan 24, 2023,13:45 DONNA SANTOS Jan 24, 2023 11:38 MARY PEÑA MD Jan 24, 2023 13:58
--- NOTE | 2023-01-24 14:23 | Consultation - Surgery ---
History of Present Illness History of Present Illness Patient Consulted On(gómez/time) 01/24/23 14:18 Time Seen by Provider: 11:42 History of Present Illness Surgery asked to consult regarding pleural effusion, possible thoracentesis. HPI per ED: Patient is a 47-year-old male with a history of COPD, smoking who presents to ED with shortness of breath and cough. He states symptoms have been ongoing for the past month progressive got worse over the past week. Report mucus production with this cough. Reports bilateral rib pain secondary to the cough. Increasing short of breath with walking or lying. Denies any leg swelling. No known history of coronary artery disease, CHF. Does have a nebulizer at home but has not been using any breathing treatments. Patient states he has been using cough syrup at home to help with sleep. Patient oxygen level 88% on room air on arrival. Patient Was placed on 2 L with improvement. Decreased breath sounds bilateral. Denies fever, chills, sore throat, ear pain, headache, dizziness, chest pain. Patient does take lisinopril for hypertension. Difficulty talking in complete senses When I saw pt this afternoon, US was in the room to assess fluid in right lung. Pt stated he is still SOB, but the O2 helps. Does have some mild pain in right chest when breathing. Allergies and Home Medications Allergies Coded Allergies: No Known Drug Allergies (Unverified , 03/24/15) Patient Home Medication List Home Medication List Reviewed: Yes No Active Prescriptions or Reported Meds Past Ctwtfdf-Toirqm-Zikzde Hx Patient Social History Smoking Status: Former Smoker Alcohol Use?: Yes Immunizations Up To Date Tetanus Booster (TDap): Unknown Seasonal Allergies Seasonal Allergies: Yes Respiratory History of Respiratory Disorde: Yes Respiratory Disorders: Pneumonia, COPD Cardiovascular History of Cardiac Disorders: Yes Cardiac Disorders: Hypertension Neurological History of Neurological Disord: No Gastrointestinal History of Gastrointestinal Di: Yes Gastrointestinal Disorders: Gastroesophageal Reflux Musculoskeletal History of Musculoskeletal Dis: No Endocrine History of Endocrine Disorders: No HEENT History of HEENT Disorders: No Loss of Vision: Denies Hearing Impairment: Denies Family Medical History Significant Family History: No Pertinent Family Hx Review of Systems-General Constitutional: malaise, weakness EENTM: No double vision, No mouth swelling, No epistaxis, No throat swelling Respiratory: cough, dyspnea on exertion; No hemoptysis; phlegm, short of breath Cardiovascular: chest pain; No palpitations Gastrointestinal: No abdominal pain, No jaundice, No nausea, No vomiting Genitourinary: No dysuria, No frequency, No hematuria Musculoskeletal: No joint pain, No joint swelling, No muscle pain Skin: No change in color, No change in hair/nails Psychiatric/Neurological: Denies Anxiety, Denies Depressed, Denies Seizure, Denies Tremors Physical Exam-General Problems Physical Exam Vital Signs Vital Signs - First Documented 01/22/23 01/22/23 01/22/23 11:30 11:32 12:23 Temp 39.6 Pulse 127 Resp 18 B/P (MAP) 197/100 (132) Pulse Ox 87 O2 Delivery Room Air O2 Flow Rate 2.00 FiO2 50 Capillary Refill : Less Than 3 Seconds General Appearance: WD/WN, mild distress (secondary to work of breathing) Eyes: Bilateral Eye PERRL, Bilateral Eye EOMI HEENT: pharynx normal; No scleral icterus (R), No scleral icterus (L); other (poor dentition) Neck: non-tender, supple Respiratory: respiratory distress, decreased breath sounds (right), accessory muscle use, crackles, wheezing Cardiovascular: no murmur, tachycardia Gastrointestinal: non tender, soft, no organomegaly, no pulsatile mass Back: no CVA tenderness, no vertebral tenderness Extremities: no pedal edema, no calf tenderness Neurologic/Psychiatric: alert, oriented x 3 Skin: normal color, warm/dry Lymphatic: no adenopathy (neck, axilla or groin) Data Review Labs Laboratory Tests 01/23/23 15:49: Glucometer 123H 01/24/23 04:23: White Blood Count 18.0H, Red Blood Count 4.39, Hemoglobin 12.1L, Hematocrit 37L, Mean Corpuscular Volume 83, Mean Corpuscular Hemoglobin 28, Mean Corpuscular Hemoglobin Concent 33, Red Cell Distribution Width 12.8, Platelet Count 402H, Mean Platelet Volume 8.9L, Immature Granulocyte % (Auto) 1, Neutrophils (%) (Auto) 83H, Lymphocytes (%) (Auto) 6L, Monocytes (%) (Auto) 9, Eosinophils (%) (Auto) 1, Basophils (%) (Auto) 0, Neutrophils # (Auto) 15.0H, Lymphocytes # (Auto) 1.0, Monocytes # (Auto) 1.6H, Eosinophils # (Auto) 0.2, Basophils # (Auto) 0.1, Immature Granulocyte # (Auto) 0.2H, Sodium Level 135, Potassium Level 3.3L, Chloride Level 98, Carbon Dioxide Level 28, Anion Gap 9, Blood Urea Nitrogen 11, Creatinine 0.72, Estimat Glomerular Filtration Rate 112, BUN/Creatinine Ratio 15, Glucose Level 104, Calcium Level 8.6, Corrected Calcium 9.6, Phosphorus Level 4.0, Magnesium Level 1.8, Total Bilirubin 0.3, Aspartate Amino Transf (AST/SGOT) 25, Alanine Aminotransferase (ALT/SGPT) 26, Alkaline Phosphatase 79, Total Protein 5.8L, Albumin 2.7L 01/24/23 10:45: Glucometer 110 Microbiology 01/22/23 MRSA Screen - Final, Complete MRSA not isolated 01/22/23 Blood Culture - Preliminary, Resulted No growth Radiology Date of Exam:01/24/23 CHEST 1 VIEW, AP/PA ONLY INDICATION: Pneumonia TECHNIQUE: Single view chest 4:32 AM CORRELATION STUDY: 01/22/2023 FINDINGS: Increasing size of now moderately large right pleural effusion along with consolidation of the right lung extending to the right lung apex. Left lung generally stable. Heart size largely obscured but appears to be enlarged. Vasculature also appears to be mildly prominent. IMPRESSION: 1. Increasing size of a now moderately large right pleural effusion along with consolidation of the right lung. Dictated by: Dictated on workstation # [id number] Dict: 01/24/2321 Trans: 01/24/23 0953 BETSEY [id number] Interpreted by: RON DYKES DO Electronically signed by: RON DYKES DO 01/24/23 0953 Assessment/Plan Assessment/Plan Assessment/Plan Pleural Effusion Sepsis due to pneumonia Acute respiratory failure with hypoxia COPD Tobacco abuse HTN I was at bedside as US was done to look for fluid and I marked a good spot for possible Thoracentesis. I also reviewed both CXR films and discussed this case with Dr. Peña. Pt is requiring supplemental O2; which has increased a little. He would most likely benefit from a Thoracentesis to pull off some of the fluid in his lungs. This would hopefully allow his lungs to expand more and then be able to decrease supplemental O2. I did discuss the risks and complications of the procedure; including but not limited to pain, bleeding, infection, scar and even pneumothorax. I also told him that it may not help him at all. He wanted to wait and talk to his family before deciding what to do next. I will wait for his decision. MANOLO WOODRUFF DO Jan 24, 2023 14:23
[2023-01-24] MEDS: ENOXAPARIN 40 MG/0.4 ML SYRINGE SC SCH (20:56)
[2023-01-25] MEDS: guaiFENesin/DM (ROBITUSSIN DM) 10 ML UDC PO PRN ×2 (00:52→07:56)
[2023-01-25] MEDS: CEFEPIME INJECTION 1,000 MG in NS (IVPB) 50 ML 50 ML IV SCH ×4 (02:00→21:02)
[2023-01-25] MEDS: RT-ALBUTEROL/IPRATROPIUM 3 ML (DUONEB) VIAL INH SCH ×5 (02:55→21:28)
[2023-01-25 04:49] LABS: BASOPHILS # (AUTO) 0.1 10^3/uL (0.0-0.1); BASOPHILS % (AUTO) 0 % (0-10); EOSINOPHILS # (AUTO) 0.5 10^3/uL (0.0-0.3); EOSINOPHILS % (AUTO) 3 % (0-10); HEMATOCRIT 39 % (40-54); HEMOGLOBIN 12.9 g/dL (13.3-17.7); LYMPHOCYTES # (AUTO) 0.9 10^3/uL (1.0-4.0); LYMPHOCYTES % (AUTO) 5 % (12-44); MEAN CORPUSCULAR HEMOGLOBIN 28 pg (25-34); MEAN CORPUSCULAR HGB CONC 33 g/dL (32-36); MEAN CORPUSCULAR VOLUME 84 fL (80-99); MEAN PLATELET VOLUME 8.9 fL (9.0-12.2); MONOCYTES # (AUTO) 1.8 10^3/uL (0.0-1.0); MONOCYTES % (AUTO) 9 % (0-12); NEUTROPHILS % (AUTO) 82 % (42-75); PLATELET COUNT 395 10^3/uL (130-400); WHITE BLOOD COUNT 19.4 10^3/uL (4.3-11.0)
[2023-01-25 05:19] LABS: BILIRUBIN,TOTAL 0.6 MG/DL (0.1-1.0); CALCIUM 8.9 MG/DL (8.5-10.1); CREATININE SERUM 0.67 MG/DL (0.60-1.30); MAGNESIUM 2.1 MG/DL (1.6-2.4); PHOSPHORUS 2.8 MG/DL (2.3-4.7); POTASSIUM 3.7 MMOL/L (3.6-5.0); TOTAL PROTEIN 6.5 GM/DL (6.4-8.2)
[2023-01-25] MEDS: POTASSIUM CL 10MEQ/50ML IVPB 50 ML IV SCH (05:38)
[2023-01-25] MEDS: MAGNESIUM 1 GM/100 ML IVPB 100 ML IV SCH (05:38)
[2023-01-25] MEDS: KCL 20 MEQ TAB (K-DUR) PO SCH (05:39)
[2023-01-25] MEDS: MULTIVIT W/MINERALS TAB (THERAGRAN M) PO SCH (06:23)
[2023-01-25 06:46] VITALS: BP 135/87
--- NOTE | 2023-01-25 07:16 | Diagnostic Imaging Report ---
Indication: Right pleural fluid. AP view of chest is obtained with comparison made to study of one day earlier. There is continued blunting right costophrenic sulcus with partial opacification of lower half of right lung. Left lung is clear and well expanded. There is no pneumothorax. IMPRESSION: Interval decrease in right pleural fluid with persistent atelectasis, edema and associated pleural thickening on the right. Left lung is clear. Dictated by: Dictated on workstation # [id number]
[2023-01-25] MEDS: AZITHROMYCIN INJECTION 500 MG in NS (IVPB) 250 ML 250 ML IV SCH (07:54)
[2023-01-25] MEDS: amLODIPine 5 MG TABLET PO SCH (07:55)
[2023-01-25] MEDS: BENZONATATE 100 MG CAPSULE PO SCH ×3 (07:55→21:02)
[2023-01-25] MEDS: lisINopril 40 MG (PRINIVIL) TABLET PO SCH (07:55)
[2023-01-25] MEDS: NICOTINE 14 MG (NICODERM) PATCH TD SCH (07:56)
[2023-01-25] MEDS ORDERED: KCL 20 MEQ TAB (K-DUR) PO ONE (08:00)
[2023-01-25] MEDS: PATCH REMOVAL TP SCH (09:00)
--- NOTE | 2023-01-25 10:43 | Progress Note - Surgery ---
Subjective Time Seen by a Provider: 08:44 Subjective/Events-last exam Pt seen and examined, states his breathing is a little better. Still on supplemental O2. Review of Systems General: No Chills Pulmonary: Dyspnea, Cough, Pleuritic Chest Pain Cardiovascular: No: Chest Pain, Palpitations Gastrointestinal: No: Nausea, Vomiting, Abdominal Pain Focused Exam Lactate Level 01/22/23 11:45: Lactic Acid Level 1.64 Objective Exam Vital Signs Date Time Temp Pulse Resp B/P (MAP) Pulse Ox O2 Delivery O2 Flow Rate FiO2 01/25/23 10:00 104 24 123/81 (95) 94 High Flow N/C 4.00 01/25/23 09:00 117 31 148/95 (112) 95 High Flow N/C 4.00 01/25/23 08:00 111 159/90 (113) 95 High Flow N/C 4.00 01/25/23 08:00 36.5 01/25/23 08:00 Room Air 01/25/23 07:22 114 01/25/23 07:00 113 150/99 (116) 95 High Flow N/C 4.00 01/25/23 06:46 37.2 115 95 01/25/23 06:41 95 High Flow N/C 3.00 01/25/23 06:00 115 135/87 (103) 94 High Flow N/C 4.00 01/25/23 05:00 108 148/93 (111) 93 High Flow N/C 4.00 01/25/23 04:15 37.2 High Flow N/C 4.00 01/25/23 04:00 117 166/97 (120) 93 High Flow N/C 4.00 01/25/23 04:00 93 High Flow N/C 4.00 01/25/23 03:00 103 20 147/90 (109) 93 High Flow N/C 4.00 01/25/23 02:50 98 High Flow N/C 4.00 01/25/23 02:00 98 25 157/94 (115) 97 High Flow N/C 4.00 01/25/23 01:00 114 163/103 (123) 92 High Flow N/C 4.00 01/25/23 01:00 89 01/25/23 00:00 100 25 152/93 (112) 94 High Flow N/C 4.00 01/24/23 23:00 94 High Flow N/C 4.00 01/24/23 23:00 111 22 173/102 (125) 97 High Flow N/C 4.00 01/24/23 22:58 95 High Flow N/C 4.00 01/24/23 22:55 37.3 High Flow N/C 4.00 01/24/23 22:00 115 157/91 (113) 93 High Flow N/C 4.00 01/24/23 21:00 112 37 141/104 (116) 89 High Flow N/C 4.00 01/24/23 20:00 104 25 143/89 (107) 95 High Flow N/C 4.00 01/24/23 19:15 94 High Flow N/C 4.00 01/24/23 19:00 36.9 114 22 150/94 (112) 94 High Flow N/C 4.00 01/24/23 19:00 113 01/24/23 18:37 98 High Flow N/C 4.00 01/24/23 18:00 108 27 154/91 (112) 93 High Flow N/C 4.00 01/24/23 17:00 113 29 163/103 (123) 96 High Flow N/C 4.00 01/24/23 16:55 36.8 01/24/23 16:00 94 High Flow N/C 4.00 01/24/23 16:00 103 29 148/93 (111) 95 High Flow N/C 4.00 01/24/23 15:00 101 16 150/93 (112) 99 High Flow N/C 4.00 01/24/23 14:57 93 High Flow N/C 4.00 01/24/23 14:00 102 13 141/93 (109) 94 High Flow N/C 4.00 01/24/23 13:00 108 31 140/90 (107) 94 High Flow N/C 4.00 01/24/23 13:00 107 01/24/23 12:00 96 High Flow N/C 4.00 01/24/23 12:00 112 18 163/90 (114) 94 High Flow N/C 4.00 01/24/23 11:59 36.7 01/24/23 11:00 106 25 144/88 (106) 95 High Flow N/C 4.00 I & O 01/25/23 07:00 Intake Total 2725 ml Output Total 2200 ml Balance 525 ml Capillary Refill : Less Than 3 Seconds General Appearance: No Apparent Distress, WD/WN HEENT: PERRL/EOMI, Other (poor dentition) Respiratory: No Accessory Muscle Use, No Respiratory Distress, Decreased Breath Sounds (base of right lung), Rales (right lower lobe) Cardiovascular: Regular Rate, Rhythm, No Edema, No Murmur Gastrointestinal: non tender, soft, no organomegaly, no pulsatile mass Neurologic/Psychiatric: Alert, Oriented x3 Results Lab Laboratory Tests 01/24/23 10:45: Glucometer 110 01/25/23 04:00: White Blood Count 19.4H, Red Blood Count 4.69, Hemoglobin 12.9L, Hematocrit 39L, Mean Corpuscular Volume 84, Mean Corpuscular Hemoglobin 28, Mean Corpuscular Hemoglobin Concent 33, Red Cell Distribution Width 12.9, Platelet Count 395, Mean Platelet Volume 8.9L, Immature Granulocyte % (Auto) 1, Neutrophils (%) (Auto) 82H, Lymphocytes (%) (Auto) 5L, Monocytes (%) (Auto) 9, Eosinophils (%) (Auto) 3, Basophils (%) (Auto) 0, Neutrophils # (Auto) 16.0H, Lymphocytes # (Auto) 0.9L, Monocytes # (Auto) 1.8H, Eosinophils # (Auto) 0.5H, Basophils # (Auto) 0.1, Immature Granulocyte # (Auto) 0.1, Sodium Level 135, Potassium Level 3.7, Chloride Level 97L, Carbon Dioxide Level 26, Anion Gap 12, Blood Urea Nitrogen 9, Creatinine 0.67, Estimat Glomerular Filtration Rate 114, BUN/Creatinine Ratio 13, Glucose Level 100, Calcium Level 8.9, Corrected Calcium 9.7, Phosphorus Level 2.8, Magnesium Level 2.1, Total Bilirubin 0.6, Aspartate Amino Transf (AST/SGOT) 17, Alanine Aminotransferase (ALT/SGPT) 24, Alkaline Phosphatase 91, Total Protein 6.5, Albumin 3.0L 01/25/23 08:07: Glucometer 113H Microbiology 01/22/23 MRSA Screen - Final, Complete MRSA not isolated 01/22/23 Blood Culture - Preliminary, Resulted No growth Assessment/Plan Assessment/Plan Assessment/Plan Pleural Effusion - improved on CXR today Acute respiratory failure with hypoxia - improved COPD Tobacco abuse HTN I reviewed the CXR films today and there appears to be less fluid; which is in agreement with Radiology reading. Pt still wants to wait and since it appears to be improving think this is the best option at this time. I will follow along in case he needs a thoracentesis; but does not appear to need it at this time. MANOLO WOODRUFF DO Jan 25, 2023 10:43
--- NOTE | 2023-01-25 11:33 | Progress Note - Hospitalist ---
DONNA SANTOS 01/25/23 1133: Subjective HPI/CC On Admission Song Albarado is a 47 year old male with PMH HTN, COPD, tobacco abuse, who presented with shortness of breath. He has been feeling unwell for the past month but has worsened over the past week. He has been short of breath. He has had a cough with sputum. He denies fevers. He has had chest pain associated with coughing. He denies abdominal pain, nausea, vomiting, and diarrhea. He has not followed up with his doctor in over a year. He had been following at [facility]. Subjective/Events-last exam Patient reports unchanged SOB, cough, and sputum production. He states his rib pain is resolved but that he is now having shoulder/upper right chest pain with deep inspiration and coughing fits. Per nursing, surgery is deferring thoracentesis at this time due to the improvement today's CXR compared to the 01/24 CXR. He denies substernal pain, abdominal pain, N/V/D or new symptoms otherwise. Focused Exam Lactate Level 01/22/23 11:45: Lactic Acid Level 1.64 Objective Exam Vital Signs Vital Signs Date Time Temp Pulse Resp B/P (MAP) Pulse Ox O2 Delivery O2 Flow Rate FiO2 01/25/23 11:32 36.2 104 20 144/86 (105) 96 High Flow N/C 4.00 01/23/23 08:00 40 Capillary Refill : Less Than 3 Seconds General Appearance: No Apparent Distress HEENT: PERRL/EOMI Neck: Non Tender, Supple Respiratory: Chest Non Tender, No Accessory Muscle Use, No Respiratory Distress, Decreased Breath Sounds (right lower and right middle lobe) Cardiovascular: Regular Rate, Rhythm, No Murmur Gastrointestinal: Normal Bowel Sounds, Non Tender Extremity: No Calf Tenderness, No Pedal Edema Neurologic/Psychiatric: Alert, Oriented x3 Results/Procedures Lab Laboratory Tests 01/25/23 04:00 Patient resulted labs reviewed. Imaging: Reviewed Imaging Films, Reviewed Imaging Report Assessment/Plan Assessment and Plan Assess & Plan/Chief Complaint Pneumonia Parapneumonic effusion, right lobe Acute respiratory failure with hypoxia Sepsis - Azithromycin 500 mg and Cefepime 50 mL @ 100 mL; blood cultures pending - Requiring 4.00 L of supplemental oxygen by nasal canula (non-oxygen dependent at home) - Surgery deferring thoracentesis at this time due to improvement in 01/25 CXR compared to 01/24 CXR - CXR 01/25 showing "interval decrease in right pleural fluid with persistent atelectasis" compared to 01/24 CXR - CXR 01/24 showing "increasing size of now moderately large right pleural effusion" compared to 01/22 CXR - continue incentive spirometry COPD Tobacco use - Duonebs 3mL - Nicotine patch 14 mg HTN - Metoprolol 25 mg - Amlodipine 10 mg - Lisinopril 40 mg - Hydralazine 10 mg Hypokalemia - resolved as of 01/25 Will keep patient on ICU until completion of thoracentesis and and consider transition to med-surg depending on his state at that time. PAIGE PEÑA MD 01/25/23 1223: Assessment/Plan Assessment and Plan Assess & Plan/Chief Complaint CXR shows decrease in size. Surgery consulted, now will monitor it instead of thoracentesis per patient wishes. Will transfer to step down unit. Supervisory-Addendum Brief Verification & Attestation Participated in pt care: history, MDM, physical Personally performed: exam, history, MDM, supervision of care Care discussed with: Medical Student Procedures: n/a Results interpretation: Verified all documentation Verification and Attestation of Medical Student E/M Service A medical student performed and documented this service in my presence. I reviewed and verified all information documented by the medical student and made modifications to such information, when appropriate. I personally performed the physical exam and medical decision making. Paige Peña, Jan 25, 2023,12:19 DONNA SANTOS Jan 25, 2023 11:33 PAIGE PEÑA MD Jan 25, 2023 12:23
--- NOTE | 2023-01-25 11:40 | Tele-ICU Progress Note ---
Subjective Date Seen by a Provider: Jan 25, 2023 Time Seen by a Provider: 11:40 Subjective/Events-last exam (Tele-ICU Physician , Progress Note ) Service provided via interactive audio and video telecommunications E-CARE system to a patient admitted to ICU bed in [facility]. Patient is seen today due to persistent need of ICU care Available chart/ vitals / labs / Images reviewed Video assessment done using teleICU camera, rest of exam as per RN Discussed with RN Events overnight : Afebrile hemodynamically stable Respiratory - I/O =even Drips: Pressors- no Hospital course: 01/22 47 y/o M - Pneumonia - Vaportherm. 01/23- VT 15 L 40 % , Stopped IVF 01/24 - 4L o2 , effusion , worse - thora offered - patient want to postpone 01/25 - 4 L , effusion better A/P Acute hypoxix resp failure - off VT , on 4 L NC Right lower lobe pneumonia with possible parapneumonic effusion - abx started Right effusion - large , worsening on cxr 01/24-4 L , - thora offered - patient want to postpone, effusion better today - follow closely - ? parapneumonic ? - hope not empyema with persistent WBC AECOPD - nebs ( not on steroids now - as per bedside assessment ) ETOH - vitamins hyperglycemia - to follow acchucheck - to stop Lines : periph , (Central Line Necessity Reviewed) Quiroz: void OG: Nutrition: po Analgesia: Anxiety/ delirium VTE Prophylaxis: tali 40 Stress Ulcer Prophylaxis: Plans in collaboration with bedside consultants and IM MDs. Discussed with RN to reach out if any questions or concerns Case and care daily discussed on multidisciplinary rounds ( RN, PharmD, Fruit Packer , Respiratory Therapy, derrick worker ) A total of 20 minutes of critical care time was devoted to this patient today, required to treat and/or prevent further deterioration of critical care condition ( as above ) . I am remotely monitoring this patient from another state. I am unable to do the bedside exam, and history/physical and pertinent information is taken from other notes in the computer and bedside staff. Sepsis Event Evaluation Height, Weight, BMI Height: 5'10" Weight: 175lbs. oz. 79.118974dl; 21.28 BMI Method:Stated Focused Exam Lactate Level 01/22/23 11:45: Lactic Acid Level 1.64 Exam Exam Patient acknowledged, consented, and participated in this virtual visit which was conducted using real time audio/video Vital Signs Date Time Temp Pulse Resp B/P (MAP) Pulse Ox O2 Delivery O2 Flow Rate FiO2 01/25/23 11:32 36.2 104 20 144/86 (105) 96 High Flow N/C 4.00 01/25/23 11:00 113 17 124/79 (94) 95 High Flow N/C 4.00 01/25/23 10:00 104 24 123/81 (95) 94 High Flow N/C 4.00 01/25/23 09:00 117 31 148/95 (112) 95 High Flow N/C 4.00 01/25/23 08:00 111 159/90 (113) 95 High Flow N/C 4.00 01/25/23 08:00 36.5 01/25/23 08:00 Room Air 01/25/23 07:22 114 01/25/23 07:00 113 150/99 (116) 95 High Flow N/C 4.00 01/25/23 06:46 37.2 115 95 01/25/23 06:41 95 High Flow N/C 3.00 01/25/23 06:00 115 135/87 (103) 94 High Flow N/C 4.00 01/25/23 05:00 108 148/93 (111) 93 High Flow N/C 4.00 01/25/23 04:15 37.2 High Flow N/C 4.00 01/25/23 04:00 117 166/97 (120) 93 High Flow N/C 4.00 01/25/23 04:00 93 High Flow N/C 4.00 01/25/23 03:00 103 20 147/90 (109) 93 High Flow N/C 4.00 01/25/23 02:50 98 High Flow N/C 4.00 01/25/23 02:00 98 25 157/94 (115) 97 High Flow N/C 4.00 01/25/23 01:00 114 163/103 (123) 92 High Flow N/C 4.00 01/25/23 01:00 89 01/25/23 00:00 100 25 152/93 (112) 94 High Flow N/C 4.00 01/24/23 23:00 94 High Flow N/C 4.00 01/24/23 23:00 111 22 173/102 (125) 97 High Flow N/C 4.00 01/24/23 22:58 95 High Flow N/C 4.00 01/24/23 22:55 37.3 High Flow N/C 4.00 01/24/23 22:00 115 157/91 (113) 93 High Flow N/C 4.00 01/24/23 21:00 112 37 141/104 (116) 89 High Flow N/C 4.00 01/24/23 20:00 104 25 143/89 (107) 95 High Flow N/C 4.00 01/24/23 19:15 94 High Flow N/C 4.00 01/24/23 19:00 36.9 114 22 150/94 (112) 94 High Flow N/C 4.00 01/24/23 19:00 113 01/24/23 18:37 98 High Flow N/C 4.00 01/24/23 18:00 108 27 154/91 (112) 93 High Flow N/C 4.00 01/24/23 17:00 113 29 163/103 (123) 96 High Flow N/C 4.00 01/24/23 16:55 36.8 01/24/23 16:00 94 High Flow N/C 4.00 01/24/23 16:00 103 29 148/93 (111) 95 High Flow N/C 4.00 01/24/23 15:00 101 16 150/93 (112) 99 High Flow N/C 4.00 01/24/23 14:57 93 High Flow N/C 4.00 01/24/23 14:00 102 13 141/93 (109) 94 High Flow N/C 4.00 01/24/23 13:00 108 31 140/90 (107) 94 High Flow N/C 4.00 01/24/23 13:00 107 01/24/23 12:00 96 High Flow N/C 4.00 01/24/23 12:00 112 18 163/90 (114) 94 High Flow N/C 4.00 01/24/23 11:59 36.7 I & O 01/25/23 07:00 Intake Total 2725 ml Output Total 2200 ml Balance 525 ml Height & Weight Height: 5'10" Weight: 175lbs. oz. 79.753745tu; 21.28 BMI Method:Stated General Appearance: No Apparent Distress, WD/WN HEENT: PERRL/EOMI, Other (poor dentition) Respiratory: No Accessory Muscle Use, No Respiratory Distress, Decreased Breath Sounds (base of right lung), Rales (right lower lobe) Cardiovascular: Regular Rate, Rhythm, No Edema, No Murmur Capillary Refill: Less Than 3 Seconds Gastrointestinal: non tender, soft, no organomegaly, no pulsatile mass Neurologic/Psychiatric: Alert, Oriented x3 Results Lab Laboratory Tests 01/24/23 04:23 01/25/23 04:00 Assessment/Plan Assessment/Plan 1 CHELA DICKERSON MD Jan 25, 2023 11:40
[2023-01-25] MEDS: HYDROcodone/ACETAMINOPHEN 5 MG/325 MG TABLET PO PRN (16:56)
[2023-01-25] MEDS: dilTIAZem DRIP PRE-MIX 125 ML IV SCH (17:58)
[2023-01-25] MEDS ORDERED: ENOXAPARIN 150 MG/ML SYRINGE SQ SCH (18:00)
[2023-01-25] MEDS: ENOXAPARIN 80 MG/0.8 ML SYRINGE SC SCH (18:03)
[2023-01-25] MEDS ORDERED: NS IV 500 ML 500 ML IV ONE ×2 (18:15)
[2023-01-25] MEDS ORDERED: NS IV 500 ML 500 ML ONE (18:24)
[2023-01-25] MEDS: AMIODARONE FOR DRIP 450 MG in NORMAL SALINE (EXCEL) 250 ML 250 ML IV SCH (19:00)
[2023-01-25] MEDS ORDERED: AMIODARONE FOR BOLUS 150 MG in NS (IVPB) 100 ML 100 ML IV ONE (20:15)
[2023-01-26] MEDS ORDERED: AMIODARONE (Pyxis Kit Only) DRIP 450 MG/9 ML VIAL IV ONE (01:48)
[2023-01-26] MEDS ORDERED: NORMAL SALINE (EXCEL) 250 ML 250 ML ONE (01:49)
[2023-01-26] MEDS: AMIODARONE FOR DRIP 450 MG in NORMAL SALINE (EXCEL) 250 ML 250 ML IV SCH (01:55)
[2023-01-26] MEDS: CEFEPIME INJECTION 1,000 MG in NS (IVPB) 50 ML 50 ML IV SCH ×4 (01:58→20:40)
[2023-01-26] MEDS: RT-ALBUTEROL/IPRATROPIUM 3 ML (DUONEB) VIAL INH SCH ×4 (02:56→21:09)
[2023-01-26 03:20] LABS: BILIRUBIN,URINE NEGATIVE (NEGATIVE); CLARITY,URINE CLEAR; COLOR,URINE YELLOW; GLUCOSE, URINE (UA) NEGATIVE (NEGATIVE); KETONES,URINE TRACE (NEGATIVE); LEUKOCYTE ESTERASE ,URINE NEGATIVE (NEGATIVE); NITRITE,URINE NEGATIVE (NEGATIVE); PROTEIN,URINE TRACE (NEGATIVE)
[2023-01-26 03:28] LABS: BACTERIA,URINE TRACE /HPF; HYALINE CASTS, URINE 0-2 /LPF; RBC,URINE 0-2 /HPF; WBC,URINE 0-2 /HPF
[2023-01-26 05:06] LABS: BASOPHILS # (AUTO) 0.1 10^3/uL (0.0-0.1); BASOPHILS % (AUTO) 0 % (0-10); EOSINOPHILS # (AUTO) 0.3 10^3/uL (0.0-0.3); EOSINOPHILS % (AUTO) 2 % (0-10); HEMATOCRIT 34 % (40-54); LYMPHOCYTES # (AUTO) 0.7 10^3/uL (1.0-4.0); LYMPHOCYTES % (AUTO) 3 % (12-44); MEAN CORPUSCULAR HEMOGLOBIN 27 pg (25-34); MEAN CORPUSCULAR HGB CONC 32 g/dL (32-36); MEAN CORPUSCULAR VOLUME 84 fL (80-99); MEAN PLATELET VOLUME 9.1 fL (9.0-12.2); MONOCYTES # (AUTO) 2.2 10^3/uL (0.0-1.0); MONOCYTES % (AUTO) 10 % (0-12); NEUTROPHILS # (AUTO) 18.6 10^3/uL (1.8-7.8); NEUTROPHILS % (AUTO) 84 % (42-75); PLATELET COUNT 357 10^3/uL (130-400); WHITE BLOOD COUNT 22.1 10^3/uL (4.3-11.0)
[2023-01-26 05:19] LABS: ALBUMIN 2.3 GM/DL (3.2-4.5); POTASSIUM 3.3 MMOL/L (3.6-5.0)
[2023-01-26 05:21] LABS: CALCIUM 7.7 MG/DL (8.5-10.1)
[2023-01-26 05:23] LABS: BILIRUBIN,TOTAL 0.5 MG/DL (0.1-1.0)
[2023-01-26 05:25] LABS: PHOSPHORUS 2.4 MG/DL (2.3-4.7)
[2023-01-26 05:26] LABS: CREATININE SERUM 0.57 MG/DL (0.60-1.30)
[2023-01-26 05:28] LABS: MAGNESIUM 1.8 MG/DL (1.6-2.4)
[2023-01-26] MEDS ORDERED: NS IV 500 ML 500 ML IV PRN (05:45)
[2023-01-26] MEDS: MAGNESIUM 1 GM/100 ML IVPB 100 ML IV SCH ×2 (06:15→07:13)
[2023-01-26] MEDS: KCL 20 MEQ TAB (K-DUR) PO SCH (06:15)
[2023-01-26] MEDS: MULTIVIT W/MINERALS TAB (THERAGRAN M) PO SCH (06:16)
[2023-01-26] MEDS: ENOXAPARIN 80 MG/0.8 ML SYRINGE SC SCH ×2 (06:16→18:46)
[2023-01-26] MEDS: POTASSIUM CL 10MEQ/50ML IVPB 50 ML IV SCH (06:22)
[2023-01-26] MEDS ORDERED: KCL 20 MEQ TAB (K-DUR) PO ONE (08:00)
--- NOTE | 2023-01-26 08:14 | Diagnostic Imaging Report ---
EXAMINATION: Chest 1 view HISTORY: Pleural effusion COMPARISON: 01/25/2023 FINDINGS: A moderate right pleural effusion is unchanged. No pneumothorax. Left lung is clear. Patient base atelectasis. Heart size is normal. IMPRESSION: 1. Unchanged moderate right pleural effusion. Dictated by: Dictated on workstation # [id number]
[2023-01-26] MEDS: guaiFENesin/DM (ROBITUSSIN DM) 10 ML UDC PO PRN ×2 (09:13→13:12)
[2023-01-26] MEDS: lisINopril 40 MG (PRINIVIL) TABLET PO SCH (09:13)
[2023-01-26] MEDS: BENZONATATE 100 MG CAPSULE PO SCH ×3 (09:13→20:40)
[2023-01-26] MEDS: AMIODARONE 200 MG TABLET PO SCH ×2 (09:14→20:40)
[2023-01-26] MEDS: amLODIPine 5 MG TABLET PO SCH (09:14)
[2023-01-26] MEDS: AZITHROMYCIN INJECTION 500 MG in NS (IVPB) 250 ML 250 ML IV SCH (09:14)
[2023-01-26] MEDS: NICOTINE 14 MG (NICODERM) PATCH TD SCH (09:14)
[2023-01-26] MEDS: PATCH REMOVAL TP SCH (09:18)
[2023-01-26] MEDS: HYDROcodone/ACETAMINOPHEN 5 MG/325 MG TABLET PO PRN ×2 (09:40→14:37)
--- NOTE | 2023-01-26 10:23 | Tele-ICU Progress Note ---
Subjective Date Seen by a Provider: Jan 26, 2023 Time Seen by a Provider: 10:23 Subjective/Events-last exam (Tele-ICU Physician , Progress Note ) Service provided via interactive audio and video telecommunications E-CARE system to a patient admitted to ICU bed in [facility]. Patient is seen today due to persistent need of ICU care Available chart/ vitals / labs / Images reviewed Video assessment done using teleICU camera, rest of exam as per RN Discussed with RN Events overnight : Afebrile hemodynamically stable Respiratory - 4 L I/O =even Drips: Pressors- no Hospital course: 01/22 47 y/o M - Pneumonia - Vaportherm. 01/23- VT 15 L 40 % , Stopped IVF 01/24 - 4L o2 , effusion , worse - thora offered - patient want to postpone 01/25 - 4 L , effusion better- still large 01/26 - same A/P Acute hypoxix resp failure - off VT , on 4 L NC Right lower lobe pneumonia with possible parapneumonic effusion - abx started Right effusion - large , worsening on cxr 01/24-4 L , - thora offered - patient wanted to postpone, effusion is still large - follow closely - ? parapneumonic - possible empyema with persistent WBC - would recommend thoracentesis with both Dx and Tx purpose ( especially with h/o tobacco , copd and no previous images on this EMR ) - fd thora will be done - might need CT chest after AECOPD - nebs ( not on steroids now - as per bedside assessment ) ETOH - vitamins hyperglycemia - to follow acchucheck - to stop Lines : periph , (Central Line Necessity Reviewed) Quiroz: void OG: Nutrition: po Analgesia: Anxiety/ delirium VTE Prophylaxis: tali 40 Stress Ulcer Prophylaxis: na Plans in collaboration with bedside consultants and IM MDs.- discussed with Dr Peña Discussed with RN to reach out if any questions or concerns Case and care daily discussed on multidisciplinary rounds ( RN, PharmD, Refrigeration Mechanic Helper , Respiratory Therapy, ironworker machine operator ) A total of 20 minutes of critical care time was devoted to this patient today, required to treat and/or prevent further deterioration of critical care condition ( as above ) . I am remotely monitoring this patient from another state. I am unable to do the bedside exam, and history/physical and pertinent information is taken from other notes in the computer and bedside staff. Sepsis Event Evaluation Height, Weight, BMI Height: 5'10" Weight: 175lbs. oz. 79.661578nf; 21.32 BMI Method:Stated Exam Exam Patient acknowledged, consented, and participated in this virtual visit which was conducted using real time audio/video Vital Signs Date Time Temp Pulse Resp B/P (MAP) Pulse Ox O2 Delivery O2 Flow Rate FiO2 01/26/23 10:00 86 29 140/86 (104) 95 High Flow N/C 4.00 01/26/23 09:00 87 24 124/74 (91) 96 High Flow N/C 4.00 01/26/23 08:00 93 11 147/94 (111) 95 High Flow N/C 4.00 01/26/23 07:07 95 High Flow N/C 4.00 01/26/23 07:00 83 01/26/23 07:00 96 32 145/81 (102) 94 High Flow N/C 4.00 01/26/23 06:00 86 29 119/72 (88) 97 High Flow N/C 4.00 01/26/23 05:00 86 29 131/88 (102) 94 High Flow N/C 4.00 01/26/23 04:00 89 29 133/72 (92) 96 High Flow N/C 4.00 01/26/23 03:30 89 25 133/72 (92) 96 High Flow N/C 4.00 01/26/23 03:00 94 182/103 (129) 95 High Flow N/C 4.00 01/26/23 02:56 96 High Flow N/C 4.00 01/26/23 02:32 80 11 97 High Flow N/C 4.00 01/26/23 02:00 77 29 135/72 (93) 96 High Flow N/C 3.00 01/26/23 01:00 80 01/26/23 01:00 80 19 142/81 (101) 94 High Flow N/C 3.00 01/26/23 00:17 64 01/26/23 00:11 40 01/26/23 00:00 86 30 120/81 (94) 94 High Flow N/C 3.00 01/25/23 23:00 110 39 110/71 (84) 93 High Flow N/C 3.00 01/25/23 22:00 105 23 129/78 (87) 93 High Flow N/C 3.00 01/25/23 21:30 108 113/69 (95) 94 High Flow N/C 3.00 01/25/23 21:28 93 High Flow N/C 3.00 01/25/23 21:00 101 26 121/81 (97) 94 High Flow N/C 3.00 01/25/23 20:45 104 28 129/80 (84) 95 High Flow N/C 3.00 01/25/23 20:38 106 27 107/75 (88) 94 High Flow N/C 3.00 01/25/23 20:00 121 29 92 High Flow N/C 3.00 01/25/23 20:00 94 Nasal Cannula 3.00 01/25/23 19:00 172 23 89 High Flow N/C 3.00 01/25/23 19:00 172 01/25/23 19:00 150 138/90 01/25/23 18:00 158 30 91 High Flow N/C 3.00 01/25/23 17:58 161 136/84 01/25/23 17:47 185 01/25/23 17:44 115 01/25/23 17:43 184 01/25/23 16:00 125 35 136/84 (101) 90 High Flow N/C 4.00 01/25/23 15:42 36.3 104 16 150/101 (117) 98 Nasal Cannula 3.00 01/25/23 15:39 94 High Flow N/C 3.00 01/25/23 14:00 101 30 137/89 (105) 93 High Flow N/C 4.00 01/25/23 13:00 101 24 125/72 (89) 94 High Flow N/C 4.00 01/25/23 12:03 114 01/25/23 12:00 112 35 148/95 (112) 93 High Flow N/C 4.00 01/25/23 11:32 36.2 104 20 144/86 (105) 96 High Flow N/C 4.00 01/25/23 11:00 113 17 124/79 (94) 95 High Flow N/C 4.00 I & O 01/26/23 07:00 Intake Total 3350 ml Output Total 2300 ml Balance 1050 ml Height & Weight Height: 5'10" Weight: 175lbs. oz. 79.576208wl; 21.32 BMI Method:Stated General Appearance: No Apparent Distress HEENT: PERRL/EOMI Neck: Non Tender, Supple Respiratory: Chest Non Tender, No Accessory Muscle Use, No Respiratory Distress, Decreased Breath Sounds (right lower and right middle lobe) Cardiovascular: Regular Rate, Rhythm, No Murmur Capillary Refill: Less Than 3 Seconds Gastrointestinal: non tender, soft, no organomegaly, no pulsatile mass Extremity: No Calf Tenderness, No Pedal Edema Neurologic/Psychiatric: Alert, Oriented x3 Results Lab Laboratory Tests 01/25/23 04:00 01/26/23 04:30 Assessment/Plan Assessment/Plan 1 CHELA DICKERSON MD Jan 26, 2023 10:23
--- NOTE | 2023-01-26 12:11 | Progress Note - Hospitalist ---
DONNA SANTOS 01/26/23 1210: Subjective HPI/CC On Admission Song Albarado is a 47 year old male with PMH HTN, COPD, tobacco abuse, who presented with shortness of breath. He has been feeling unwell for the past month but has worsened over the past week. He has been short of breath. He has had a cough with sputum. He denies fevers. He has had chest pain associated with coughing. He denies abdominal pain, nausea, vomiting, and diarrhea. He has not followed up with his doctor in over a year. He had been following at [facility]. Subjective/Events-last exam Patient reports unchanged cough and sputum production, stating he "fills up a small cup" every 24 hrs. He notes some improvement in shortness of breath. He no longer has shoulder/right chest pain, but his lower rib pain has returned at a level of 6 during coughing fits. He denies sternal pain, abdominal pain, N/V/D, dysuria. Objective Exam Vital Signs Vital Signs Date Time Temp Pulse Resp B/P (MAP) Pulse Ox O2 Delivery O2 Flow Rate FiO2 01/26/23 11:00 80 23 108/74 (85) 97 High Flow N/C 4.00 01/26/23 08:00 36.6 01/23/23 08:00 40 Capillary Refill : Less Than 3 Seconds General Appearance: No Apparent Distress HEENT: PERRL/EOMI Respiratory: Chest Non Tender, No Accessory Muscle Use, No Respiratory Distress, Decreased Breath Sounds (throughout middle and lower right lobe) Cardiovascular: Regular Rate, Rhythm Gastrointestinal: Normal Bowel Sounds, Non Tender Extremity: No Calf Tenderness Neurologic/Psychiatric: Alert, Oriented x3 Skin: Normal Color, Warm/Dry Results/Procedures Lab Laboratory Tests 01/26/23 04:30 Patient resulted labs reviewed. Imaging: Reviewed Imaging Films, Reviewed Imaging Report Assessment/Plan Assessment and Plan Assess & Plan/Chief Complaint Pneumonia Parapneumonic effusion, right lobe Acute respiratory failure with hypoxia Sepsis - Leukocytosis of 22 unchanged since admission - Continues to require 4.00 L of supplemental oxygen by nasal canula (non- oxygen dependent at home) - Patient is reluctant to undergo thoracentesis; surgery appears willing to conduct thoracentesis if patient agrees - CXR 01/26 showing "unchanged moderate right pleural effusion" compared to previous CXRs - CXR 01/25 showing "interval decrease in right pleural fluid with persistent atelectasis" compared to 01/24 CXR - CXR 01/24 showing "increasing size of now moderately large right pleural ef fusion" compared to 01/22 CXR - Azithromycin 500 mg and Cefepime 50 mL @ 100 mL; blood cultures pending - Continue incentive spirometry AFib with RVR - per patient and records, this appears to be a new diagnosis - rate controlled and sinus rhythm at this time - Amiodarone 400 mg PO COPD Tobacco use - Duonebs 3mL - Nicotine patch 14 mg HTN - Metoprolol 25 mg - Amlodipine 10 mg - Lisinopril 40 mg - Hydralazine 10 mg Hypokalemia - resolved as of 01/25 Patient has not improved but is reluctant to undergo thoracentesis. Will keep patient on ICU until there is clinical improvement. PAIGE PEÑA MD 01/26/23 1536: Assessment/Plan Assessment and Plan Assess & Plan/Chief Complaint Patient remains on 4 L of oxygen and has persistent pleural effusion. Discussed with patient my concerns given increasing leukocytosis that he would benefit from thoracentesis. He states multiple times "I do not want stabbed with a big needle." He then states that he would be willing to do it he just needs more time to be prepared for it. When asked when he would feel prepared he states he was not sure. I discussed the case with Dr. Peraza and with Dr. Montano. Ideally he would get his thoracentesis and then a CT of his chest to follow. Patient plans to discuss this with Dr. Peraza before proceeding. We did discuss my concerns regarding developing an empyema. He still is reluctant to consent to thoracentesis if needed. For now we will continue on IV antibiotics and pulmonary support. He did developed a fib with RVR last night. Was started on amiodarone last night by cardiology and converted to sinus this AM. On lovenox for stroke ppx. Echo pending. Supervisory-Addendum Brief Verification & Attestation Participated in pt care: history, MDM, physical Personally performed: exam, history, MDM, supervision of care Care discussed with: Medical Student Procedures: n/a Results interpretation: Verified all documentation Verification and Attestation of Medical Student E/M Service A medical student performed and documented this service in my presence. I r eviewed and verified all information documented by the medical student and made modifications to such information, when appropriate. I personally performed the physical exam and medical decision making. Paige Peña, Jan 26, 2023,15:32 DONNA SANTOS Jan 26, 2023 12:10 PAIGE PEÑA MD Jan 26, 2023 15:36
--- NOTE | 2023-01-26 13:20 | Consultation-Cardiology ---
HPI-Cardiology Cardiology Consultation Date of Consultation 01/26/23 Date of Admission Time Seen by Provider: 13:15 Indication: Atrial fibrillation HPI 47-year-old gentleman with history of alcoholism, tobaccoism, admitted with right lower lobe pneumonia, pleural effusion, he was noted to be septic. During his hospital stay patient went to atrial fibrillation with rapid ventricular response. He was started on Cardizem drip and transferred to ICU, continue to be tachycardic. I was contacted and started him on amiodarone drip. Overnight he converted to sinus rhythm. On my evaluation he was laying down comfortably and feeling better still having shortness of breath, dyspnea at rest. Home Medications & Allergies Allergies: Coded Allergies: No Known Drug Allergies (Unverified , 03/24/15) Home Medication List Reviewed: Yes [id number] Hx Patient Social History Marital Status: Smoking Status: Former Smoker Alcohol Use?: Yes Immunizations Up To Date Tetanus Booster (TDap): Unknown Past Medical History Discussed below Family Medical History Significant Family History: No Pertinent Family Hx Review of Systems-General Review of Systems Constitutional: see HPI, malaise, weakness EENTM: see HPI; No double vision, No mouth swelling, No epistaxis, No throat swelling Respiratory: cough, dyspnea on exertion; No hemoptysis; phlegm, short of breath Cardiovascular: see HPI, chest pain, palpitations Gastrointestinal: see HPI; No abdominal pain, No jaundice, No nausea, No vomiting Genitourinary: see HPI; No dysuria, No frequency, No hematuria Musculoskeletal: see HPI; No joint pain, No joint swelling, No muscle pain Skin: No change in color, No change in hair/nails Psychiatric/Neurological: Denies Anxiety, Denies Depressed, Denies Seizure, Denies Tremors All Other Systems Reviewed Negative Unless Noted: Yes Reviewed Test Results Reviewed Test Results Lab Laboratory Tests Test 01/26/23 03:00 01/26/23 04:30 Range/Units Urine Color YELLOW Urine Clarity CLEAR Urine pH 6.0 5-9 Urine Specific [place] 1.025 H 1.016-1.022 Urine Protein TRACE H NEGATIVE Urine Glucose (UA) NEGATIVE NEGATIVE Urine Ketones TRACE H NEGATIVE Urine Nitrite NEGATIVE NEGATIVE Urine Bilirubin NEGATIVE NEGATIVE Urine Urobilinogen 2.0 < = 1.0 MG/DL Urine Leukocyte Esterase NEGATIVE NEGATIVE Urine RBC (Auto) TRACE-I H NEGATIVE Urine RBC 0-2 /HPF Urine WBC 0-2 /HPF Urine Crystals NONE /LPF Urine Bacteria TRACE /HPF Urine Casts PRESENT /LPF Urine Hyaline Casts 0-2 H /LPF Urine Mucus SMALL H /LPF Urine Culture Indicated CULTURE PENDING White Blood Count 22.1 H 4.3-11.0 10^3/uL Red Blood Count 4.05 L 4.30-5.52 10^6/uL Hemoglobin 11.0 L 13.3-17.7 g/dL Hematocrit 34 L 40-54 % Mean Corpuscular Volume 84 80-99 fL Mean Corpuscular Hemoglobin 27 25-34 pg Mean Corpuscular Hemoglobin Concent 32 32-36 g/dL Red Cell Distribution Width 12.9 10.0-14.5 % Platelet Count 357 130-400 10^3/uL Mean Platelet Volume 9.1 9.0-12.2 fL Immature Granulocyte % (Auto) 1 % Neutrophils (%) (Auto) 84 H 42-75 % Lymphocytes (%) (Auto) 3 L 12-44 % Monocytes (%) (Auto) 10 0-12 % Eosinophils (%) (Auto) 2 0-10 % Basophils (%) (Auto) 0 0-10 % Neutrophils # (Auto) 18.6 H 1.8-7.8 10^3/uL Lymphocytes # (Auto) 0.7 L 1.0-4.0 10^3/uL Monocytes # (Auto) 2.2 H 0.0-1.0 10^3/uL Eosinophils # (Auto) 0.3 0.0-0.3 10^3/uL Basophils # (Auto) 0.1 0.0-0.1 10^3/uL Immature Granulocyte # (Auto) 0.3 H 0.0-0.1 10^3/uL Sodium Level 137 135-145 MMOL/L Potassium Level 3.3 L 3.6-5.0 MMOL/L Chloride Level 103 98-107 MMOL/L Carbon Dioxide Level 24 21-32 MMOL/L Anion Gap 10 5-14 MMOL/L Blood Urea Nitrogen 10 7-18 MG/DL Creatinine 0.57 L 0.60-1.30 MG/DL Estimat Glomerular Filtration Rate 120 BUN/Creatinine Ratio 18 Glucose Level 106 H 70-105 MG/DL Calcium Level 7.7 L 8.5-10.1 MG/DL Corrected Calcium 9.1 8.5-10.1 MG/DL Phosphorus Level 2.4 2.3-4.7 MG/DL Magnesium Level 1.8 1.6-2.4 MG/DL Total Bilirubin 0.5 0.1-1.0 MG/DL Aspartate Amino Transf (AST/SGOT) 14 5-34 U/L Alanine Aminotransferase (ALT/SGPT) 20 0-55 U/L Alkaline Phosphatase 80 40-136 U/L Total Protein 5.0 L 6.4-8.2 GM/DL Albumin 2.3 L 3.2-4.5 GM/DL Radiology Date of Exam:01/24/23 CHEST 1 VIEW, AP/PA ONLY INDICATION: Pneumonia TECHNIQUE: Single view chest 4:32 AM CORRELATION STUDY: 01/22/2023 FINDINGS: Increasing size of now moderately large right pleural effusion along with consolidation of the right lung extending to the right lung apex. Left lung generally stable. Heart size largely obscured but appears to be enlarged. Vasculature also appears to be mildly prominent. IMPRESSION: 1. Increasing size of a now moderately large right pleural effusion along with consolidation of the right lung. Dictated by: Dictated on workstation # [id number] Dict: 01/24/23820 Trans: 01/24/23 0953 BETSEY [id number] Interpreted by: RON DYKES DO Electronically signed by: RON DYKES DO 01/24/23 0953 Physical Exam Physical Exam Vital Signs Vital Signs - First Documented 01/22/23 01/22/23 01/22/23 11:30 11:32 12:23 Temp 39.6 Pulse 127 Resp 18 B/P (MAP) 197/100 (132) Pulse Ox 87 O2 Delivery Room Air O2 Flow Rate 2.00 FiO2 50 Capillary Refill : Less Than 3 Seconds Height, Weight, BMI Height: 5'10" Weight: 175lbs. oz. [id number]; 21.32 BMI Method:Stated General Appearance: No Apparent Distress Eyes: Bilateral Eye Normal Inspection, Bilateral Eye PERRL, Bilateral Eye EOMI HEENT: PERRL/EOMI Neck: Non Tender, Supple Respiratory: Chest Non Tender, No Accessory Muscle Use, No Respiratory Distress, Decreased Breath Sounds (throughout middle and lower right lobe) Cardiovascular: Regular Rate, Rhythm Gastrointestinal: Normal Bowel Sounds, Non Tender Back: Normal Inspection, No CVA Tenderness, No Vertebral Tenderness Extremity: No Calf Tenderness Neurologic/Psychiatric: Alert, Oriented x3 Skin: Normal Color, Warm/Dry Lymphatic: No Adenopathy A/P-Cardiology Admission Diagnosis Pneumonia Sepsis Paroxysmal atrial fibrillation Hypertension Assessment/Plan Pneumonia, acute shortness of breath Still short of breath using oxygen Receiving antibiotics and managed by primary care physician Sepsis, leukocytosis Receiving antibiotic and managed by medical team Paroxysmal atrial fibrillation, new onset atrial fibrillation with rapid ventricular response Converted to sinus rhythm after receiving Cardizem drip and amiodarone bolus and a drip I will switch him to oral amiodarone and oral Cardizem and monitor tolerance and response. Patient was started on Lovenox, I will evaluate 2D echo Right side pleural effusion. Significant. Patient was reluctant to have thoracentesis. Managed by surgical team COPD. Hypertension, maintained on metoprolol, amlodipine, lisinopril and hydralazine. Monitor blood pressure History of tobacco use. Patient educated on avoiding tobacco History of alcohol use. Educated on avoiding alcohol Hypokalemia, being replaced. Monitor electrolytes. ADELSO ACEVEDO MD Jan 26, 2023 13:20
[2023-01-26] MEDS: dilTIAZem 30 MG TABLET PO SCH ×2 (14:39→18:46)
--- NOTE | 2023-01-26 15:18 | Progress Note - Surgery ---
Subjective Time Seen by a Provider: 14:57 Subjective/Events-last exam Pt seen and examined, he stated he thinks his breathing is better. Still on 4L of O2. Review of Systems Pulmonary: Dyspnea, Cough, Pleuritic Chest Pain Cardiovascular: No: Chest Pain, Palpitations Gastrointestinal: No: Nausea, Vomiting, Abdominal Pain Objective Exam Vital Signs Date Time Temp Pulse Resp B/P (MAP) Pulse Ox O2 Delivery O2 Flow Rate FiO2 01/26/23 15:00 95 27 127/80 (96) 92 High Flow N/C 4.00 01/26/23 14:19 96 High Flow N/C 4.00 01/26/23 14:00 84 38 123/100 (108) 98 High Flow N/C 4.00 01/26/23 13:00 82 28 127/89 (102) 96 High Flow N/C 4.00 01/26/23 12:32 85 01/26/23 12:00 93 Nasal Cannula 3.00 01/26/23 12:00 81 94 128/87 (101) 94 High Flow N/C 4.00 01/26/23 11:00 80 23 108/74 (85) 97 High Flow N/C 4.00 01/26/23 10:00 86 29 140/86 (104) 95 High Flow N/C 4.00 01/26/23 09:00 87 24 124/74 (91) 96 High Flow N/C 4.00 01/26/23 08:00 36.6 01/26/23 08:00 95 Nasal Cannula 3.00 01/26/23 08:00 93 11 147/94 (111) 95 High Flow N/C 4.00 01/26/23 07:07 95 High Flow N/C 4.00 01/26/23 07:00 83 01/26/23 07:00 96 32 145/81 (102) 94 High Flow N/C 4.00 01/26/23 06:00 86 29 119/72 (88) 97 High Flow N/C 4.00 01/26/23 05:00 86 29 131/88 (102) 94 High Flow N/C 4.00 01/26/23 04:00 89 29 133/72 (92) 96 High Flow N/C 4.00 01/26/23 03:30 89 25 133/72 (92) 96 High Flow N/C 4.00 01/26/23 03:00 94 182/103 (129) 95 High Flow N/C 4.00 01/26/23 02:56 96 High Flow N/C 4.00 01/26/23 02:32 80 11 97 High Flow N/C 4.00 01/26/23 02:00 77 29 135/72 (93) 96 High Flow N/C 3.00 01/26/23 01:00 80 01/26/23 01:00 80 19 142/81 (101) 94 High Flow N/C 3.00 01/26/23 00:17 64 01/26/23 00:11 40 01/26/23 00:00 86 30 120/81 (94) 94 High Flow N/C 3.00 01/25/23 23:00 110 39 110/71 (84) 93 High Flow N/C 3.00 01/25/23 22:00 105 23 129/78 (87) 93 High Flow N/C 3.00 01/25/23 21:30 108 113/69 (95) 94 High Flow N/C 3.00 01/25/23 21:28 93 High Flow N/C 3.00 01/25/23 21:00 101 26 121/81 (97) 94 High Flow N/C 3.00 01/25/23 20:45 104 28 129/80 (84) 95 High Flow N/C 3.00 01/25/23 20:38 106 27 107/75 (88) 94 High Flow N/C 3.00 01/25/23 20:00 121 29 92 High Flow N/C 3.00 01/25/23 20:00 94 Nasal Cannula 3.00 01/25/23 19:00 172 23 89 High Flow N/C 3.00 01/25/23 19:00 172 01/25/23 19:00 150 138/90 01/25/23 18:00 158 30 91 High Flow N/C 3.00 01/25/23 17:58 161 136/84 01/25/23 17:47 185 01/25/23 17:44 115 01/25/23 17:43 184 01/25/23 16:00 125 35 136/84 (101) 90 High Flow N/C 4.00 01/25/23 15:42 36.3 104 16 150/101 (117) 98 Nasal Cannula 3.00 01/25/23 15:39 94 High Flow N/C 3.00 I & O 01/26/23 07:00 Intake Total 3350 ml Output Total 2300 ml Balance 1050 ml Capillary Refill : Less Than 3 Seconds General Appearance: No Apparent Distress HEENT: PERRL/EOMI Neck: Non Tender, Supple Respiratory: Chest Non Tender, No Accessory Muscle Use, No Respiratory Distress, Decreased Breath Sounds (throughout middle and lower right lobe) Cardiovascular: Regular Rate, Rhythm, No Murmur Gastrointestinal: non tender, soft, no organomegaly, no pulsatile mass Extremity: No Calf Tenderness Neurologic/Psychiatric: Alert, Oriented x3 Results Lab Laboratory Tests 01/26/23 03:00: Urine Color YELLOW, Urine Clarity CLEAR, Urine pH 6.0, Urine Specific [place] 1.025H, Urine Protein TRACEH, Urine Glucose (UA) NEGATIVE, Urine Ketones TRACEH, Urine Nitrite NEGATIVE, Urine Bilirubin NEGATIVE, Urine Urobilinogen 2.0, Urine Leukocyte Esterase NEGATIVE, Urine RBC (Auto) TRACE-IH, Urine RBC 0-2, Urine WBC 0-2, Urine Crystals NONE, Urine Bacteria TRACE, Urine Casts PRESENT, Urine Hyaline Casts 0-2H, Urine Mucus SMALLH, Urine Culture Indicated CULTURE PENDING 01/26/23 04:30: White Blood Count 22.1H, Red Blood Count 4.05L, Hemoglobin 11.0L, Hematocrit 34L , Mean Corpuscular Volume 84, Mean Corpuscular Hemoglobin 27, Mean Corpuscular Hemoglobin Concent 32, Red Cell Distribution Width 12.9, Platelet Count 357, Mean Platelet Volume 9.1, Immature Granulocyte % (Auto) 1, Neutrophils (%) (Auto) 84H, Lymphocytes (%) (Auto) 3L, Monocytes (%) (Auto) 10, Eosinophils (%) (Auto) 2, Basophils (%) (Auto) 0, Neutrophils # (Auto) 18.6H, Lymphocytes # (Auto) 0.7L, Monocytes # (Auto) 2.2H, Eosinophils # (Auto) 0.3, Basophils # (Auto) 0.1, Immature Granulocyte # (Auto) 0.3H, Sodium Level 137, Potassium Level 3.3L, Chloride Level 103, Carbon Dioxide Level 24, Anion Gap 10, Blood Urea Nitrogen 10, Creatinine 0.57L, Estimat Glomerular Filtration Rate 120, BUN/Creatinine Ratio 18, Glucose Level 106H, Calcium Level 7.7L, Corrected Calcium 9.1, Phosphorus Level 2.4, Magnesium Level 1.8, Total Bilirubin 0.5, Aspartate Amino Transf (AST/SGOT) 14, Alanine Aminotransferase (ALT/SGPT) 20, Alkaline Phosphatase 80, Total Protein 5.0L, Albumin 2.3L Microbiology 01/22/23 MRSA Screen - Final, Complete MRSA not isolated 01/22/23 Blood Culture - Preliminary, Resulted No growth Assessment/Plan Assessment/Plan Assessment/Plan Pleural Effusion - almost looks consolidated on CXR today Acute respiratory failure with hypoxia - stable COPD Tobacco abuse HTN I reviewed the CXR films today and discussed case with Hospitalist. Pt still wants to wait, apparently he is terrified of needles and is afraid he is going to cough during Thoracentesis. I told the pt that the way it looks he may still need thoracentesis and it may even be turning into an abscess. I will follow along in case he needs a thoracentesis; may even need VATS decortication. MANOLO WOODRUFF DO Jan 26, 2023 15:18
[2023-01-26] MEDS: dilTIAZem DRIP PRE-MIX 125 ML IV SCH (18:00)
[2023-01-27] MEDS: HYDROcodone/ACETAMINOPHEN 5 MG/325 MG TABLET PO PRN ×3 (01:11→19:52)
[2023-01-27] MEDS: guaiFENesin/DM (ROBITUSSIN DM) 10 ML UDC PO PRN ×2 (01:11→11:36)
[2023-01-27] MEDS: dilTIAZem 30 MG TABLET PO SCH ×4 (01:12→17:49)
[2023-01-27] MEDS: RT-ALBUTEROL/IPRATROPIUM 3 ML (DUONEB) VIAL INH SCH ×4 (02:46→21:42)
[2023-01-27] MEDS: CEFEPIME INJECTION 1,000 MG in NS (IVPB) 50 ML 50 ML IV SCH ×3 (03:13→17:04)
[2023-01-27 05:38] LABS: BASOPHILS # (AUTO) 0.1 10^3/uL (0.0-0.1); BASOPHILS % (AUTO) 1 % (0-10); EOSINOPHILS # (AUTO) 0.5 10^3/uL (0.0-0.3); EOSINOPHILS % (AUTO) 3 % (0-10); HEMATOCRIT 36 % (40-54); HEMOGLOBIN 11.6 g/dL (13.3-17.7); LYMPHOCYTES # (AUTO) 0.8 10^3/uL (1.0-4.0); LYMPHOCYTES % (AUTO) 5 % (12-44); MEAN CORPUSCULAR HEMOGLOBIN 27 pg (25-34); MEAN CORPUSCULAR HGB CONC 33 g/dL (32-36); MEAN CORPUSCULAR VOLUME 84 fL (80-99); MONOCYTES % (AUTO) 12 % (0-12); NEUTROPHILS % (AUTO) 79 % (42-75); PLATELET COUNT 389 10^3/uL (130-400); WHITE BLOOD COUNT 16.5 10^3/uL (4.3-11.0)
[2023-01-27 05:53] LABS: ALBUMIN 2.7 GM/DL (3.2-4.5); POTASSIUM 3.6 MMOL/L (3.6-5.0)
[2023-01-27 05:54] LABS: CALCIUM 8.6 MG/DL (8.5-10.1)
[2023-01-27 05:56] LABS: TOTAL PROTEIN 5.7 GM/DL (6.4-8.2)
[2023-01-27 05:58] LABS: BILIRUBIN,TOTAL 0.4 MG/DL (0.1-1.0)
[2023-01-27 05:59] LABS: CREATININE SERUM 0.62 MG/DL (0.60-1.30)
[2023-01-27 06:02] LABS: MAGNESIUM 2.3 MG/DL (1.6-2.4)
[2023-01-27] MEDS: KCL 20 MEQ TAB (K-DUR) PO SCH (06:37)
[2023-01-27] MEDS: POTASSIUM CL 10MEQ/50ML IVPB 50 ML IV SCH (06:37)
[2023-01-27] MEDS: MULTIVIT W/MINERALS TAB (THERAGRAN M) PO SCH (06:37)
[2023-01-27] MEDS: ENOXAPARIN 80 MG/0.8 ML SYRINGE SC SCH ×2 (06:37→17:49)
[2023-01-27] MEDS ORDERED: AZITHROMYCIN INJECTION 500 MG VIAL ONE (07:58)
[2023-01-27] MEDS: AMIODARONE 200 MG TABLET PO SCH ×2 (08:03→19:51)
[2023-01-27] MEDS: lisINopril 40 MG (PRINIVIL) TABLET PO SCH (08:03)
[2023-01-27] MEDS: AZITHROMYCIN INJECTION 500 MG in NS (IVPB) 250 ML 250 ML IV SCH (08:03)
[2023-01-27] MEDS: amLODIPine 5 MG TABLET PO SCH (08:03)
[2023-01-27] MEDS: BENZONATATE 100 MG CAPSULE PO SCH ×3 (08:03→19:51)
[2023-01-27] MEDS: PATCH REMOVAL TP SCH (08:04)
[2023-01-27] MEDS: NICOTINE 14 MG (NICODERM) PATCH TD SCH (08:04)
--- NOTE | 2023-01-27 09:06 | Cardiology Progress Note ---
Subjective Date Seen by Provider: Jan 27, 2023 Time Seen by Provider: 09:05 Subjective/Events-last exam Patient was seen at bedside, sitting comfortably, still having some dyspnea but overall reporting improvement. Still in sinus rhythm Review of Systems General: No Chills, No Night Sweats; Fatigue; No Malaise, No Appetite, No Other HEENT: No Head Aches, No Visual Changes, No Eye Pain, No Ear Pain, No Dysphasia, No Sinus Congestion, No Post Nasal Drip, No Sore Throat, No Other Pulmonary: Dyspnea; No Cough, No Pleuritic Chest Pain, No Other Cardiovascular: No: Chest Pain, Palpitations, Orthopnea, Paroxysmal Noc. Dyspn ea, Edema, Lt Headedness, Other Objective-Cardiology Exam Last Set of Vital Signs Vital Signs 01/23/23 01/27/23 01/27/23 08:00 07:21 08:00 Temp 36.4 Pulse 90 Resp 28 B/P (MAP) 132/86 (101) Pulse Ox 98 O2 Delivery High Flow N/C O2 Flow Rate 4.00 FiO2 40 I&O Intake and Output 01/27/23 00:00 Intake Total 2865 ml Output Total 2275 ml Balance 590 ml Intake Oral 1990 ml IV Total 875 ml Output Urine Total 2275 ml General: Alert, Oriented X3, Cooperative HEENT: Atraumatic, PERRLA Neck: Supple, No JVD, No Thyromegaly Lungs: Normal Air Movement, Other (Wet rales) Heart: Regular Rate, Normal S1, Normal S2, No Murmurs Abdomen: Normal Bowel Sounds, Soft, No Tenderness, No Hepatosplenomegaly, No Ma sses Extremities: No Clubbing, No Cyanosis, No Edema, Normal Pulses, No Tender ness/Swelling Skin: No Rashes, No Breakdown, No Significant Lesion Neuro: Normal Gait, Normal Speech, Strength at 5/5 X4 Ext, Normal Tone, Sensation Intact Psych/Mental Status: Mental Status NL, Mood NL Results Lab Laboratory Tests 01/27/23 04:42 A/P-Cardiology Admission Diagnosis Pneumonia Sepsis Paroxysmal atrial fibrillation Hypertension Assessment/Plan Pneumonia, acute shortness of breath Reporting improvement in his dyspnea, overall improving slowly Managed by medical team. Sepsis, leukocytosis Receiving antibiotic and managed by medical team Paroxysmal atrial fibrillation, new onset atrial fibrillation with rapid ventricular response Converted to sinus rhythm after receiving Cardizem drip and amiodarone bolus and a drip Tolerating Cardizem and amiodarone. Continue to monitor CHADVASC score 1, currently maintained on Lovenox. Possible thoracentesis, patient is still hesitant to have the procedure done Patient will need to be on oral anticoagulation prior to discharge Right side pleural effusion. Significant. Patient was reluctant to have thoracentesis. Managed by surgical team COPD. Hypertension, maintained on metoprolol, amlodipine, lisinopril and hydralazine. Monitor blood pressure History of tobacco use. Patient educated on avoiding tobacco History of alcohol use. Educated on avoiding alcohol Hypokalemia, being replaced. Monitor electrolytes. ADELSO ACEVEDO MD Jan 27, 2023 09:06
--- NOTE | 2023-01-27 12:46 | Progress Note - Surgery ---
Subjective Time Seen by a Provider: 12:11 Subjective/Events-last exam Pt seen and examined, states he is breathing fine. Still "coughing up stuff". Tolerating diet, denies abdominal pain. Occasionally has pleuritic chest pain. Review of Systems Pulmonary: Dyspnea, Cough, Pleuritic Chest Pain Cardiovascular: No: Chest Pain, Palpitations Gastrointestinal: No: Nausea, Vomiting, Abdominal Pain Objective Exam Vital Signs Date Time Temp Pulse Resp B/P (MAP) Pulse Ox O2 Delivery O2 Flow Rate FiO2 01/27/23 12:33 95 Nasal Cannula 2.00 01/27/23 12:00 96 17 134/73 (93) 90 High Flow N/C 4.00 01/27/23 11:32 36.6 01/27/23 11:00 92 18 121/68 (85) 90 High Flow N/C 4.00 01/27/23 10:00 93 10 126/83 (97) 95 High Flow N/C 4.00 01/27/23 09:54 98 High Flow N/C 2.00 01/27/23 09:00 87 26 108/73 (85) 97 High Flow N/C 4.00 01/27/23 08:00 90 28 132/86 (101) 98 High Flow N/C 4.00 01/27/23 07:45 95 Nasal Cannula 3.00 01/27/23 07:21 36.4 01/27/23 07:00 82 20 121/82 (95) 99 High Flow N/C 4.00 01/27/23 06:55 85 01/27/23 06:00 85 22 150/84 (106) 96 High Flow N/C 4.00 01/27/23 05:00 82 21 130/75 (93) 97 High Flow N/C 4.00 01/27/23 04:00 97 Nasal Cannula 3.00 01/27/23 04:00 90 9 125/72 (89) 97 High Flow N/C 4.00 01/27/23 03:00 97 16 139/88 (105) 95 High Flow N/C 4.00 01/27/23 02:47 95 High Flow N/C 4.00 01/27/23 02:05 86 14 127/76 (93) 95 High Flow N/C 4.00 01/27/23 01:00 96 13 140/87 (104) 97 High Flow N/C 4.00 01/27/23 01:00 97 01/27/23 00:00 90 27 133/77 (95) 98 High Flow N/C 4.00 01/27/23 00:00 96 Nasal Cannula 3.00 01/26/23 23:34 36.8 01/26/23 23:00 90 21 118/70 (86) 97 High Flow N/C 4.00 01/26/23 22:00 96 11 124/77 (93) 97 High Flow N/C 4.00 01/26/23 21:11 100 High Flow N/C 4.00 01/26/23 21:00 90 32 159/89 (112) 96 High Flow N/C 4.00 01/26/23 20:00 84 32 122/72 (89) 96 High Flow N/C 4.00 01/26/23 20:00 97 Nasal Cannula 3.00 01/26/23 19:57 36.8 01/26/23 19:00 86 01/26/23 19:00 3 25 135/111 (119) 93 High Flow N/C 4.00 01/26/23 18:00 96 31 134/68 (90) 91 High Flow N/C 4.00 01/26/23 17:00 84 27 128/78 (95) 93 High Flow N/C 4.00 01/26/23 16:00 86 29 119/73 (88) 95 High Flow N/C 4.00 01/26/23 16:00 90 Nasal Cannula 3.00 01/26/23 15:58 36.1 01/26/23 15:00 95 27 127/80 (96) 92 High Flow N/C 4.00 01/26/23 14:19 96 High Flow N/C 4.00 01/26/23 14:00 84 38 123/100 (108) 98 High Flow N/C 4.00 01/26/23 13:00 82 28 127/89 (102) 96 High Flow N/C 4.00 I & O 01/27/23 07:00 Intake Total 2865 ml Output Total 2475 ml Balance 390 ml Capillary Refill : Less Than 3 Seconds General Appearance: No Apparent Distress HEENT: PERRL/EOMI Neck: Non Tender, Supple Respiratory: Chest Non Tender, No Accessory Muscle Use, No Respiratory Distress, Decreased Breath Sounds (throughout middle and lower right lobe) Cardiovascular: Regular Rate, Rhythm, No Murmur Gastrointestinal: non tender, soft, no organomegaly, no pulsatile mass Extremity: No Calf Tenderness Neurologic/Psychiatric: Alert, Oriented x3 Results Lab Laboratory Tests 01/27/23 04:42: White Blood Count 16.5H, Red Blood Count 4.23L, Hemoglobin 11.6L, Hematocrit 36L , Mean Corpuscular Volume 84, Mean Corpuscular Hemoglobin 27, Mean Corpuscular Hemoglobin Concent 33, Red Cell Distribution Width 13.0, Platelet Count 389, Mean Platelet Volume 9.0, Immature Granulocyte % (Auto) 1, Neutrophils (%) (Auto) 79H, Lymphocytes (%) (Auto) 5L, Monocytes (%) (Auto) 12, Eosinophils (%) (Auto) 3, Basophils (%) (Auto) 1, Neutrophils # (Auto) 13.0H, Lymphocytes # (Auto) 0.8L, Monocytes # (Auto) 2.0H, Eosinophils # (Auto) 0.5H, Basophils # (Auto) 0.1, Immature Granulocyte # (Auto) 0.2H, Sodium Level 135, Potassium Level 3.6, Chloride Level 98, Carbon Dioxide Level 27, Anion Gap 10, Blood Urea Nitrogen 8, Creatinine 0.62, Estimat Glomerular Filtration Rate 117, BUN/Creatinine Ratio 13, Glucose Level 104, Calcium Level 8.6, Corrected Calcium 9.6, Magnesium Level 2.3, Total Bilirubin 0.4, Aspartate Amino Transf (AST/SGOT) 18, Alanine Aminotransferase (ALT/SGPT) 23, Alkaline Phosphatase 83, Total Protein 5.7L, Albumin 2.7L Microbiology 01/26/23 Urine Culture - Final, Complete NO GROWTH 01/25/23 Gram Stain - Final, Complete 01/25/23 Sputum Culture - Final, Complete Usual upper respiratory gill YEAST 01/22/23 Blood Culture - Preliminary, Resulted No growth Assessment/Plan Assessment/Plan Assessment/Plan Pleural Effusion Acute respiratory failure with hypoxia - stable COPD Tobacco abuse HTN Pt appears stable and WBC has come down from appx 22 to appx 16. He is not getting worse or needed increased O2, will continue to hold off on t horacentesis. MANOLO WOODRUFF DO Jan 27, 2023 12:46
[2023-01-27 13:02] VITALS: BP 124/72
--- NOTE | 2023-01-27 13:31 | Progress Note - Hospitalist ---
DONNA SANTOS 01/27/23 1331: Subjective HPI/CC On Admission Song Albarado is a 47 year old male with PMH HTN, COPD, tobacco abuse, who presented with shortness of breath. He has been feeling unwell for the past month but has worsened over the past week. He has been short of breath. He has had a cough with sputum. He denies fevers. He has had chest pain associated with coughing. He denies abdominal pain, nausea, vomiting, and diarrhea. He has not followed up with his doctor in over a year. He had been following at [facility]. Subjective/Events-last exam The patient reports slight improvement in his shortness of breath. He says he is coughing less frequently but that he is producing the roughly the same amount of sputum. He experiences rib pain less often per the decrease in his coughing, but continues to rate the pain a 6-10. He states he is still reluctant to proceed with a thoracentesis but will reconsider when his comes to visit this afternoon. Objective Exam Vital Signs Vital Signs Date Time Temp Pulse Resp B/P (MAP) Pulse Ox O2 Delivery O2 Flow Rate FiO2 01/27/23 12:33 95 Nasal Cannula 2.00 01/27/23 12:00 96 17 134/73 (93) 01/27/23 11:32 36.6 01/23/23 08:00 40 Capillary Refill : Less Than 3 Seconds General Appearance: No Apparent Distress HEENT: PERRL/EOMI Neck: Non Tender, Supple Respiratory: Chest Non Tender, No Accessory Muscle Use, No Respiratory Distress, Decreased Breath Sounds (right lower lobe; improved air movement compared to yesterday's examination) Cardiovascular: Regular Rate, Rhythm Gastrointestinal: Normal Bowel Sounds, Non Tender Neurologic/Psychiatric: Alert, Oriented x3 Results/Procedures Lab Laboratory Tests 01/27/23 04:42 Patient resulted labs reviewed. Imaging: Reviewed Imaging Films, Reviewed Imaging Report Assessment/Plan Assessment and Plan Assess & Plan/Chief Complaint Pneumonia Parapneumonic effusion, right lobe Acute respiratory failure with hypoxia Sepsis - Improvement in leukocytosis to approximately 16 from approximately 22 - Supplemental oxygen decreased to 2.00L from 4.00L (non-oxygen dependent at home) - Patient is reluctant to undergo thoracentesis; surgery appears willing to conduct thoracentesis if patient agrees - CXR 01/26 showing "unchanged moderate right pleural effusion" compared to previous CXRs - CXR 01/25 showing "interval decrease in right pleural fluid with persistent atelectasis" compared to 01/24 CXR - CXR 01/24 showing "increasing size of now moderately large right pleural effusion" compared to 01/22 CXR - Azithromycin 500 mg and Cefepime 50 mL @ 100 mL; blood cultures pending - Continue incentive spirometry AFib with RVR - per patient and records, this appears to be a new diagnosis - rate controlled and sinus rhythm at this time - Amiodarone 400 mg PO COPD Tobacco use - Duonebs 3mL - Nicotine patch 14 mg HTN - Metoprolol 25 mg - Amlodipine 10 mg - Lisinopril 40 mg - Hydralazine 10 mg Hypokalemia - resolved as of 01/25 Patient moved to med-surg floor to improve activity level and mobility. He is still unsure about his choice regarding thoracentesis. PAIGE PEÑA MD 01/27/23 1542: Assessment/Plan Assessment and Plan Assess & Plan/Chief Complaint Reports feeling better today. Still has persistent cough but less so and breathing little bit easier. White count improving. Defer need for t horacentesis to surgery. Wean oxygen as able. Transfer to MedSur floor. Supervisory-Addendum Brief Verification & Attestation Participated in pt care: history, MDM, physical Personally performed: exam, history, MDM, supervision of care Care discussed with: Medical Student Procedures: n/a Results interpretation: Verified all documentation Verification and Attestation of Medical Student E/M Service A medical student performed and documented this service in my presence. I reviewed and verified all information documented by the medical student and made modifications to such information, when appropriate. I personally performed the physical exam and medical decision making. Paige Peña, Jan 27, 2023,15:41 DONNA SANTOS Jan 27, 2023 13:31 PAIGE PEÑA MD Jan 27, 2023 15:42
[2023-01-27] MEDS: dilTIAZem DRIP PRE-MIX 125 ML IV SCH (13:41)
[2023-01-27 15:25] VITALS: BP 133/70
[2023-01-27 19:11] VITALS: BP 152/76
[2023-01-27] MEDS: LIDOCAINE PATCH REMOVAL TP SCH (20:46)
[2023-01-27 23:45] VITALS: BP 155/84
[2023-01-28] MEDS: dilTIAZem 30 MG TABLET PO SCH ×4 (00:30→17:05)
[2023-01-28] MEDS: guaiFENesin/DM (ROBITUSSIN DM) 10 ML UDC PO PRN ×2 (00:30→17:05)
[2023-01-28] MEDS: RT-ALBUTEROL/IPRATROPIUM 3 ML (DUONEB) VIAL INH SCH ×4 (02:47→21:24)
[2023-01-28 03:46] VITALS: BP 155/85
[2023-01-28 06:14] LABS: BASOPHILS # (AUTO) 0.1 10^3/uL (0.0-0.1); BASOPHILS % (AUTO) 1 % (0-10); EOSINOPHILS # (AUTO) 0.4 10^3/uL (0.0-0.3); EOSINOPHILS % (AUTO) 2 % (0-10); HEMATOCRIT 36 % (40-54); HEMOGLOBIN 11.7 g/dL (13.3-17.7); LYMPHOCYTES # (AUTO) 0.8 10^3/uL (1.0-4.0); LYMPHOCYTES % (AUTO) 5 % (12-44); MEAN CORPUSCULAR HEMOGLOBIN 27 pg (25-34); MEAN CORPUSCULAR HGB CONC 33 g/dL (32-36); MEAN CORPUSCULAR VOLUME 84 fL (80-99); MONOCYTES # (AUTO) 2.1 10^3/uL (0.0-1.0); MONOCYTES % (AUTO) 13 % (0-12); NEUTROPHILS # (AUTO) 12.9 10^3/uL (1.8-7.8); NEUTROPHILS % (AUTO) 79 % (42-75); PLATELET COUNT 404 10^3/uL (130-400); WHITE BLOOD COUNT 16.4 10^3/uL (4.3-11.0)
[2023-01-28 06:33] LABS: ALBUMIN 2.8 GM/DL (3.2-4.5)
[2023-01-28 06:35] LABS: CALCIUM 9.1 MG/DL (8.5-10.1)
[2023-01-28 06:38] LABS: BILIRUBIN,TOTAL 0.5 MG/DL (0.1-1.0)
[2023-01-28 06:40] LABS: CREATININE SERUM 0.68 MG/DL (0.60-1.30)
[2023-01-28] MEDS: MULTIVIT W/MINERALS TAB (THERAGRAN M) PO SCH (06:47)
[2023-01-28] MEDS: ENOXAPARIN 80 MG/0.8 ML SYRINGE SC SCH (06:47)
[2023-01-28 06:50] LABS: EOSINOPHILS % (MANUAL) 6 %; LYMPHOCYTES % (MANUAL) 4 %; MONOCYTES % (MANUAL) 8 %; MYELOCYTES % 1 %; NEUTROPHILS % (MANUAL) 81 %; RBC MORPH NORMAL
[2023-01-28] MEDS: HYDROcodone/ACETAMINOPHEN 5 MG/325 MG TABLET PO PRN ×2 (06:53→17:05)
[2023-01-28] MEDS: MAGNESIUM 1 GM/100 ML IVPB 100 ML IV SCH (07:57)
[2023-01-28] MEDS: POTASSIUM CL 10MEQ/50ML IVPB 50 ML IV SCH (07:57)
[2023-01-28] MEDS: KCL 20 MEQ TAB (K-DUR) PO SCH (07:58)
[2023-01-28 08:02] VITALS: BP 145/72
[2023-01-28] MEDS: LIDOCAINE 4% (SALONPAS) PATCH TOP SCH (08:25)
[2023-01-28] MEDS: AMIODARONE 200 MG TABLET PO SCH ×2 (08:25→20:28)
[2023-01-28] MEDS: lisINopril 40 MG (PRINIVIL) TABLET PO SCH (08:25)
[2023-01-28] MEDS: NICOTINE 14 MG (NICODERM) PATCH TD SCH (08:25)
[2023-01-28] MEDS: BENZONATATE 100 MG CAPSULE PO SCH ×3 (08:25→20:28)
[2023-01-28] MEDS: amLODIPine 5 MG TABLET PO SCH (08:25)
[2023-01-28] MEDS: PATCH REMOVAL TP SCH (08:29)
--- NOTE | 2023-01-28 10:47 | Cardiology Progress Note ---
Subjective Date Seen by Provider: Jan 28, 2023 Time Seen by Provider: 10:47 Subjective/Events-last exam Patient was seen at bedside, sitting comfortably. Feeling better Objective-Cardiology Exam Last Set of Vital Signs Vital Signs 01/23/23 01/28/23 01/28/23 08:00 08:02 08:42 Temp 36.3 Pulse 98 Resp 16 B/P (MAP) 145/72 (96) Pulse Ox 93 O2 Delivery Nasal Cannula O2 Flow Rate 2.50 FiO2 40 I&O Intake and Output 01/28/23 00:00 Intake Total 2660 ml Output Total 2550 ml Balance 110 ml Intake Oral 2610 ml IV Total 50 ml Output Urine Total 2550 ml General: Alert, Oriented X3, Cooperative HEENT: Atraumatic, PERRLA Neck: Supple, No JVD, No Thyromegaly Lungs: Normal Air Movement, Other (Wet rales) Heart: Regular Rate, Normal S1, Normal S2, No Murmurs Abdomen: Normal Bowel Sounds, Soft, No Tenderness, No Hepatosplenomegaly, No Masses Extremities: No Clubbing, No Cyanosis, No Edema, Normal Pulses, No Tenderness/Swelling Skin: No Rashes, No Breakdown, No Significant Lesion Neuro: Normal Gait, Normal Speech, Strength at 5/5 X4 Ext, Normal Tone, Sens ation Intact Psych/Mental Status: Mental Status NL, Mood NL Results Lab Laboratory Tests 01/28/23 05:18 A/P-Cardiology Admission Diagnosis Pneumonia Sepsis Paroxysmal atrial fibrillation Hypertension Assessment/Plan Pneumonia, acute shortness of breath Reporting improvement in his dyspnea, overall improving slowly Managed by medical team. Sepsis, leukocytosis Receiving antibiotic and managed by medical team Paroxysmal atrial fibrillation, new onset atrial fibrillation with rapid v entricular response Converted to sinus rhythm after receiving Cardizem drip and amiodarone bolus and a drip Tolerating Cardizem and amiodarone. Continue to monitor CHADVASC score 1, currently maintained on Lovenox. Possible thoracentesis, patient is still hesitant to have the procedure done Patient will need to be on oral anticoagulation prior to discharge Right side pleural effusion. Significant. Patient was reluctant to have thoracentesis. Managed by surgical team COPD. Hypertension, maintained on metoprolol, amlodipine, lisinopril and hydralazine. Monitor blood pressure History of tobacco use. Patient educated on avoiding tobacco History of alcohol use. Educated on avoiding alcohol Hypokalemia, being replaced. Monitor electrolytes. ADELSO ACEVEDO MD Jan 28, 2023 10:47
--- NOTE | 2023-01-28 11:06 | Diagnostic Imaging Report ---
EXAMINATION: Chest 1 view HISTORY: Pleural effusion. COMPARISON: 01/26/2023. FINDINGS: There is an unchanged [id number] right pleural effusion with overlying atelectasis or pneumonia. No pneumothorax. Left lung is clear. Heart size is normal. IMPRESSION: 1. Unchanged large right pleural effusion with overlying atelectasis or pneumonia. Dictated by: Dictated on workstation # [id number]
[2023-01-28] MEDS ORDERED: CEFDINIR 300 MG CAPSULE PO NR (11:30)
[2023-01-28 11:37] VITALS: BP 138/86
[2023-01-28] MEDS: FLUCONAZOLE 200 MG/100 ML 100 ML IV SCH (11:45)
[2023-01-28 12:18] VITALS: BP 138/86
--- NOTE | 2023-01-28 12:53 | Progress Note - Hospitalist ---
DONNA SANTOS 01/28/23 1253: Subjective HPI/CC On Admission Song Albarado is a 47 year old male with PMH HTN, COPD, tobacco abuse, who presented with shortness of breath. He has been feeling unwell for the past month but has worsened over the past week. He has been short of breath. He has had a cough with sputum. He denies fevers. He has had chest pain associated with coughing. He denies abdominal pain, nausea, vomiting, and diarrhea. He has not followed up with his doctor in over a year. He had been following at [facility]. Subjective/Events-last exam is present at bedside. She and patient believe surgery performing thoracentesis this morning. Patient endorses unchanged shortness of breath, cough and sputum production. He is maintained on 2.5 L of supplemental oxygen at this time. Objective Exam Vital Signs Vital Signs Date Time Temp Pulse Resp B/P (MAP) Pulse Ox O2 Delivery O2 Flow Rate FiO2 01/28/23 12:18 37.2 98 93 30 01/28/23 11:37 18 138/86 (103) High Flow N/C 2.50 Capillary Refill : Less Than 3 Seconds General Appearance: No Apparent Distress HEENT: PERRL/EOMI Neck: Non Tender, Supple Respiratory: Chest Non Tender, No Accessory Muscle Use, No Respiratory Distress, Decreased Breath Sounds (right middle and lower lobe, similar to yesterday's assessment ) Cardiovascular: Regular Rate, Rhythm Extremity: No Pedal Edema Neurologic/Psychiatric: Alert, Oriented x3 Skin: Normal Color, Damp Results/Procedures Lab Laboratory Tests 01/28/23 05:18 Patient resulted labs reviewed. Imaging: Reviewed Imaging Films, Reviewed Imaging Report Assessment/Plan Assessment and Plan Assess & Plan/Chief Complaint Pneumonia Parapneumonic effusion, right lobe Acute respiratory failure with hypoxia Sepsis - Leukocytosis unchanged at ~16, down from ~22 at admission - Supplemental oxygen decreased to 2.5L from 4.00L (non-oxygen dependent at home) - Thoracentesis pending decision between patient and surgery - CXR 01/26 showing "unchanged moderate right pleural effusion" compared to previous CXRs - CXR 01/25 showing "interval decrease in right pleural fluid with persistent atelectasis" compared to 01/24 CXR - CXR 01/24 showing "increasing size of now moderately large right pleural effusion" compared to 01/22 CXR - Sputum cultures resulted yeast, blood cultures resulted no growth - Azithromycin 500 mg and Cefepime 50 mL @ 100 mL 01/23 - 01/28 - Fluconazole 100 ml @ 100 ml/s since 01/28 - Cefdinir 300 mg since 01/28 - Continue incentive spirometry AFib with RVR - per patient and records, this appears to be a new diagnosis - rate controlled and sinus rhythm at this time - Amiodarone 400 mg PO - DIltiazem 30 mg PO COPD Tobacco use - Duonebs 3mL - Nicotine patch 14 mg HTN - Metoprolol 25 mg - Amlodipine 10 mg - Lisinopril 40 mg - Hydralazine 10 mg Hypokalemia - resolved as of 01/25 Thoracentesis pending decision between surgery and the patient. PAIGE PEÑA MD 01/28/23 1421: Assessment/Plan Assessment and Plan Assess & Plan/Chief Complaint Patient reports feeling about the same today. Has persistent cough and remains hypoxic needing 2 to 2-1/2 L of oxygen. I discussed with Dr. Montano after she visited with him and he is now agreeable to the thoracentesis. I then discussed this with Dr. Peraza. I will hold his Lovenox in preparation for thoracentesis tomorrow. Supervisory-Addendum Brief Verification & Attestation Participated in pt care: history, MDM, physical Personally performed: exam, history, MDM, supervision of care Care discussed with: Medical Student Procedures: n/a Results interpretation: Verified all documentation Verification and Attestation of Medical Student E/M Service A medical student performed and documented this service in my presence. I reviewed and verified all information documented by the medical student and made modifications to such information, when appropriate. I personally performed the physical exam and medical decision making. Paige Peña, Jan 28, 2023,14:20 DONNA SANTOS Jan 28, 2023 12:53 PAIGE PEÑA MD Jan 28, 2023 14:21
--- NOTE | 2023-01-28 13:30 | Pulmonary Progress Note ---
Subjective Date Seen by a Provider: Jan 28, 2023 Time Seen by a Provider: 13:23 Subjective/Events-last exam (Tele-pulmonary Physician , consultation as per request of PCP Service provided via interactive audio and video telecommunications 2can system to a patient admitted to [facility]. Patient is c/o cough , severe , sometime productive . Has chest wall pain on righ side , muscular and pleuritic . Patient denies EDWARDS , RN did not see him moving off bed . On 2.5 - 3 L NC cxr today with same effusion , infiltrate Hospital course: 01/22 47 y/o M - Pneumonia - Vaportherm. 01/23- VT 15 L 40 % , Stopped IVF 01/24 - 4L o2 , effusion , worse - thora offered - patient wants to postpone 01/25 - 4 L , effusion better 01/27 - transferred to [facility] , on 4 L 01/28 - 3 lNC , effusion still large A/P Acute hypoxic resp failure - off VT , on 4 L NC Right lower lobe pneumonia with possible parapneumonic effusion Right effusion - large - thora offered - patient wanted to postpone - suspected parapneumonic but have to r/o empyema - would sent for bact infection , fungal and cytology - discussed with patient , he is agreed for procedure - hopefully lung will expand after thora , might need CT chest latter if still have conserns Recent new a fib - in sinuys now on amio PO - on Lovenox full dose - will be on hold for thora AECOPD - nebs ( not on steroids now - as per bedside assessment ) ETOH - vitamins Discussed with patient Dx. TX goals, side effects and symptoms. All questions were answered. Plans in collaboration with bedside consultants and IM MDs- discussed with Dr Peña Discussed with RN to reach out if any questions or concerns Sepsis Event Evaluation Height, Weight, BMI Height: 5'10" Weight: 175lbs. oz. [id number]; 21.32 BMI Method:Stated Exam Exam Patient acknowledged, consented, and participated in this virtual visit which was conducted using real time audio/video Vital Signs Date Time Temp Pulse Resp B/P (MAP) Pulse Ox O2 Delivery O2 Flow Rate FiO2 01/28/23 13:00 104 01/28/23 12:18 37.2 98 93 30 01/28/23 11:37 37.2 94 18 138/86 (103) 95 High Flow N/C 2.50 01/28/23 08:42 93 Nasal Cannula 2.50 01/28/23 08:25 Nasal Cannula 2.50 01/28/23 08:02 36.3 98 16 145/72 (96) 96 High Flow N/C 2.00 01/28/23 03:46 36.8 98 16 155/85 (108) 97 Nasal Cannula 2.50 2.50 01/28/23 02:47 96 Nasal Cannula 2.50 01/28/23 01:00 85 01/27/23 23:45 36.4 84 16 155/84 (107) 97 High Flow N/C 2.00 01/27/23 21:43 Nasal Cannula 2.50 01/27/23 19:50 93 Nasal Cannula 2.50 01/27/23 19:11 36.9 100 18 152/76 (101) 93 Nasal Cannula 2.50 01/27/23 19:00 92 01/27/23 15:25 37.3 97 18 133/70 (91) 93 Room Air 01/27/23 14:49 95 High Flow N/C 2.00 I & O 01/28/23 07:00 Intake Total 2160 ml Output Total 2450 ml Balance -290 ml Height & Weight Height: 5'10" Weight: 175lbs. oz. [id number]; 21.32 BMI Method:Stated General Appearance: No Apparent Distress HEENT: PERRL/EOMI Neck: Non Tender, Supple Respiratory: Chest Non Tender, No Accessory Muscle Use, No Respiratory Distress, Decreased Breath Sounds (right middle and lower lobe, similar to yesterday's assessment ) Cardiovascular: Regular Rate, Rhythm Capillary Refill: Less Than 3 Seconds Gastrointestinal: non tender, soft, no organomegaly, no pulsatile mass Extremity: No Pedal Edema Neurologic/Psychiatric: Alert, Oriented x3 Skin: Normal Color, Damp Results Lab Laboratory Tests 01/27/23 04:42 01/28/23 05:18 Assessment/Plan Assessment/Plan 1 CHELA DICKERSON MD Jan 28, 2023 13:30
--- NOTE | 2023-01-28 14:28 | Progress Note - Surgery ---
Subjective Time Seen by a Provider: 13:51 Subjective/Events-last exam Pt seen and examined, laying in bed and comfortable. Still has a cough, but thinks it is better and not really coughing up as much stuff. Review of Systems Pulmonary: Dyspnea, Cough; No Pleuritic Chest Pain Cardiovascular: No: Chest Pain, Palpitations Gastrointestinal: No: Nausea, Vomiting, Abdominal Pain Objective Exam Vital Signs Date Time Temp Pulse Resp B/P (MAP) Pulse Ox O2 Delivery O2 Flow Rate FiO2 01/28/23 13:00 104 01/28/23 12:18 37.2 98 93 30 01/28/23 11:37 37.2 94 18 138/86 (103) 95 High Flow N/C 2.50 01/28/23 08:42 93 Nasal Cannula 2.50 01/28/23 08:25 Nasal Cannula 2.50 01/28/23 08:02 36.3 98 16 145/72 (96) 96 High Flow N/C 2.00 01/28/23 03:46 36.8 98 16 155/85 (108) 97 Nasal Cannula 2.50 2.50 01/28/23 02:47 96 Nasal Cannula 2.50 01/28/23 01:00 85 01/27/23 23:45 36.4 84 16 155/84 (107) 97 High Flow N/C 2.00 01/27/23 21:43 Nasal Cannula 2.50 01/27/23 19:50 93 Nasal Cannula 2.50 01/27/23 19:11 36.9 100 18 152/76 (101) 93 Nasal Cannula 2.50 01/27/23 19:00 92 01/27/23 15:25 37.3 97 18 133/70 (91) 93 Room Air 01/27/23 14:49 95 High Flow N/C 2.00 I & O 01/28/23 07:00 Intake Total 2160 ml Output Total 2450 ml Balance -290 ml Capillary Refill : Less Than 3 Seconds General Appearance: No Apparent Distress HEENT: PERRL/EOMI Respiratory: Chest Non Tender, No Accessory Muscle Use, No Respiratory Dis tress, Decreased Breath Sounds (right middle and lower lobe, similar to yesterday's assessment ) Cardiovascular: Regular Rate, Rhythm Gastrointestinal: non tender, soft, no organomegaly, no pulsatile mass Extremity: No Pedal Edema Neurologic/Psychiatric: Alert, Oriented x3 Skin: Normal Color Results Lab Laboratory Tests 01/28/23 05:18: White Blood Count 16.4H, Red Blood Count 4.27L, Hemoglobin 11.7L, Hematocrit 36L , Mean Corpuscular Volume 84, Mean Corpuscular Hemoglobin 27, Mean Corpuscular Hemoglobin Concent 33, Red Cell Distribution Width 12.9, Platelet Count 404H, Mean Platelet Volume 9.0, Immature Granulocyte % (Auto) 1, Neutrophils (%) (Auto) 79H, Lymphocytes (%) (Auto) 5L, Monocytes (%) (Auto) 13H, Eosinophils (%) (Auto) 2, Basophils (%) (Auto) 1, Neutrophils # (Auto) 12.9H, Lymphocytes # (Auto) 0.8L, Monocytes # (Auto) 2.1H, Eosinophils # (Auto) 0.4H, Basophils # (Auto) 0.1, Immature Granulocyte # (Auto) 0.2H, Neutrophils % (Manual) 81, Lymphocytes % (Manual) 4, Monocytes % (Manual) 8, Eosinophils % (Manual) 6, Myelocytes % 1, Blood Morphology Comment NORMAL, Sodium Level 135, Potassium Level 4.0, Chloride Level 96L, Carbon Dioxide Level 29, Anion Gap 10, Blood Urea Nitrogen 7, Creatinine 0.68, Estimat Glomerular Filtration Rate 114, BUN/Creatinine Ratio 10, Glucose Level 95, Calcium Level 9.1, Corrected Calcium 10.1, Magnesium Level 2.0, Total Bilirubin 0.5, Aspartate Amino Transf (AST/SGOT) 19, Alanine Aminotransferase (ALT/SGPT) 27, Alkaline Phosphatase 93, Total Protein 6.0L, Albumin 2.8L Microbiology 01/26/23 Urine Culture - Final, Complete NO GROWTH 01/25/23 Gram Stain - Final, Complete 01/25/23 Sputum Culture - Final, Complete Usual upper respiratory gill YEAST 01/22/23 Blood Culture - Final, Complete No growth Assessment/Plan Assessment/Plan Assessment/Plan Pleural Effusion - CXR today no changes from 01/26 Acute respiratory failure with hypoxia - stable COPD Tobacco abuse HTN Pt appears stable and WBC is still at 16. He is not getting worse or needed increased O2; however, there is no improvement and Deli Worker/Weekend Anchor thinks he would benefit from thoracentesis. Will hold Lovenox today and plan for thoracentesis tomorrow, pt is ok with this. MANOLO WOODRUFF DO Jan 28, 2023 14:28
[2023-01-28 15:31] VITALS: BP 134/79
[2023-01-28] MEDS: dilTIAZem DRIP PRE-MIX 125 ML IV SCH (16:59)
[2023-01-28 19:33] VITALS: BP 138/73
[2023-01-28] MEDS: CEFDINIR 300 MG CAPSULE PO SCH (20:28)
[2023-01-28] MEDS: LIDOCAINE PATCH REMOVAL TP SCH (20:30)
[2023-01-29] VITALS (7 sets, daily range): BP systolic 105–136; BP diastolic 66–75
[2023-01-29] MEDS: RT-ALBUTEROL/IPRATROPIUM 3 ML (DUONEB) VIAL INH SCH ×4 (03:47→21:46)
[2023-01-29] MEDS: HYDROcodone/ACETAMINOPHEN 5 MG/325 MG TABLET PO PRN ×4 (03:53→21:58)
[2023-01-29] MEDS: guaiFENesin/DM (ROBITUSSIN DM) 10 ML UDC PO PRN ×5 (03:53→21:58)
[2023-01-29 05:19] LABS: BASOPHILS # (AUTO) 0.1 10^3/uL (0.0-0.1); BASOPHILS % (AUTO) 1 % (0-10); EOSINOPHILS # (AUTO) 0.5 10^3/uL (0.0-0.3); EOSINOPHILS % (AUTO) 3 % (0-10); HEMATOCRIT 34 % (40-54); HEMOGLOBIN 11.1 g/dL (13.3-17.7); LYMPHOCYTES # (AUTO) 0.8 10^3/uL (1.0-4.0); LYMPHOCYTES % (AUTO) 5 % (12-44); MEAN CORPUSCULAR HEMOGLOBIN 27 pg (25-34); MEAN CORPUSCULAR HGB CONC 33 g/dL (32-36); MEAN CORPUSCULAR VOLUME 84 fL (80-99); MEAN PLATELET VOLUME 8.7 fL (9.0-12.2); MONOCYTES # (AUTO) 2.1 10^3/uL (0.0-1.0); MONOCYTES % (AUTO) 13 % (0-12); NEUTROPHILS # (AUTO) 13.2 10^3/uL (1.8-7.8); NEUTROPHILS % (AUTO) 78 % (42-75); PLATELET COUNT 387 10^3/uL (130-400)
[2023-01-29 05:32] LABS: ALBUMIN 2.8 GM/DL (3.2-4.5)
[2023-01-29 05:33] LABS: POTASSIUM 3.5 MMOL/L (3.6-5.0)
[2023-01-29 05:34] LABS: CALCIUM 9.1 MG/DL (8.5-10.1)
[2023-01-29 05:35] LABS: TOTAL PROTEIN 5.9 GM/DL (6.4-8.2)
[2023-01-29 05:37] LABS: BILIRUBIN,TOTAL 0.4 MG/DL (0.1-1.0)
[2023-01-29 05:39] LABS: CREATININE SERUM 0.68 MG/DL (0.60-1.30)
[2023-01-29] MEDS ORDERED: KCL 20 MEQ TAB (K-DUR) PO ONE (06:00)
[2023-01-29] MEDS: MAGNESIUM 1 GM/100 ML IVPB 100 ML IV SCH (06:02)
[2023-01-29] MEDS: POTASSIUM CL 10MEQ/50ML IVPB 50 ML IV SCH (06:02)
[2023-01-29] MEDS: KCL 20 MEQ TAB (K-DUR) PO SCH (06:04)
[2023-01-29] MEDS: MULTIVIT W/MINERALS TAB (THERAGRAN M) PO SCH (06:31)
[2023-01-29] MEDS: dilTIAZem 30 MG TABLET PO SCH ×5 (06:31→23:44)
--- NOTE | 2023-01-29 07:34 | Progress Note - Hospitalist ---
DONNA SANTOS 01/29/23 0734: Subjective HPI/CC On Admission Song Albarado is a 47 year old male with PMH HTN, COPD, tobacco abuse, who presented with shortness of breath. He has been feeling unwell for the past month but has worsened over the past week. He has been short of breath. He has had a cough with sputum. He denies fevers. He has had chest pain associated with coughing. He denies abdominal pain, nausea, vomiting, and diarrhea. He has not followed up with his doctor in over a year. He had been following at [facility]. Subjective/Events-last exam Surgery plans to perform thoracentesis this morning. Per nursing, patient had an episode of sweating early this morning requiring a change of gown. He remains afebrile. The patient reports an unchanged SOB and cough though he notes a decrease in sputum production compared to yesterday. He denies CP, chills, or N/V/D. Objective Exam Vital Signs Vital Signs Date Time Temp Pulse Resp B/P (MAP) Pulse Ox O2 Delivery O2 Flow Rate FiO2 01/29/23 04:03 37.2 102 20 132/66 (88) 95 Nasal Cannula 2.00 2.00 01/28/23 12:18 30 Capillary Refill : Less Than 3 Seconds General Appearance: No Apparent Distress HEENT: PERRL/EOMI Neck: Non Tender, Supple Respiratory: Chest Non Tender, No Accessory Muscle Use, No Respiratory Distre ss, Decreased Breath Sounds (throughout right middle and lower lobe) Cardiovascular: Regular Rate, Rhythm Gastrointestinal: Normal Bowel Sounds, Non Tender Extremity: No Pedal Edema Neurologic/Psychiatric: Alert, Oriented x3 Skin: Normal Color, Damp Results/Procedures Lab Laboratory Tests 01/29/23 04:55 Patient resulted labs reviewed. Imaging: Reviewed Imaging Films, Reviewed Imaging Report Assessment/Plan Assessment and Plan Assess & Plan/Chief Complaint Pneumonia Parapneumonic effusion, right lobe Acute respiratory failure with hypoxia Sepsis - Thoracentesis scheduled for this morning - Leukocytosis increased ~17 from ~16 yesterday, down from ~22 at admission - Supplemental oxygen weaned to 2 L from 4 L at admission (non-oxygen dependent at home) - CXR 01/26 showing "unchanged moderate right pleural effusion" compared to previous CXRs - CXR 01/25 showing "interval decrease in right pleural fluid with persistent atelectasis" compared to 01/24 CXR - CXR 01/24 showing "increasing size of now moderately large right pleural effusion" compared to 01/22 CXR - Sputum cultures resulted yeast, blood cultures resulted no growth - Azithromycin 500 mg and Cefepime 50 mL @ 100 mL 01/23 - 01/28 - Fluconazole 100 ml @ 100 ml/s since 01/28 - Cefdinir 300 mg since 01/28 - Continue incentive spirometry AFib with RVR - per patient and records, this appears to be a new diagnosis - rate controlled and sinus rhythm at this time - Amiodarone 400 mg PO - DIltiazem 30 mg PO COPD Tobacco use - Duonebs 3mL - Nicotine patch 14 mg HTN - Metoprolol 25 mg - Amlodipine 10 mg - Lisinopril 40 mg - Hydralazine 10 mg Hypokalemia - resolved as of 01/25 Thoracentesis scheduled for today. PAIGE PEÑA MD 01/29/23 1907: Assessment/Plan Assessment and Plan Assess & Plan/Chief Complaint Pt reports doing about the same. Still has a cough and still on oxygen. Planning for thoracentesis today. Continue abx. Once thoracentesis done will send for cultures and cytology. Supervisory-Addendum Brief Verification & Attestation Participated in pt care: history, MDM, physical Personally performed: exam, history, MDM, supervision of care Care discussed with: Medical Student Procedures: n/a Results interpretation: Verified all documentation Verification and Attestation of Medical Student E/M Service A medical student performed and documented this service in my presence. I reviewed and verified all information documented by the medical student and made modifications to such information, when appropriate. I personally performed the physical exam and medical decision making. Paige Peña, Jan 29, 2023,19:04 DONNA SANTOS Jan 29, 2023 07:34 PAIGE PEÑA MD Jan 29, 2023 19:07
[2023-01-29] MEDS: FLUCONAZOLE 200 MG/100 ML 100 ML IV SCH (08:26)
[2023-01-29] MEDS: LIDOCAINE 4% (SALONPAS) PATCH TOP SCH (08:26)
[2023-01-29] MEDS: CEFDINIR 300 MG CAPSULE PO SCH ×2 (08:27→20:24)
[2023-01-29] MEDS: NICOTINE 14 MG (NICODERM) PATCH TD SCH (08:27)
[2023-01-29] MEDS: amLODIPine 10 MG TABLET PO SCH (08:27)
[2023-01-29] MEDS: AMIODARONE 200 MG TABLET PO SCH ×2 (08:27→20:24)
[2023-01-29] MEDS: BENZONATATE 100 MG CAPSULE PO SCH ×3 (08:27→20:24)
[2023-01-29] MEDS: lisINopril 40 MG (PRINIVIL) TABLET PO SCH (08:27)
[2023-01-29] MEDS: PATCH REMOVAL TP SCH (08:28)
--- NOTE | 2023-01-29 08:56 | Cardiology Progress Note ---
Subjective Date Seen by Provider: Jan 29, 2023 Time Seen by Provider: 08:55 Subjective/Events-last exam Patient was seen at bedside, laying down comfortably, feeling better Still having shortness of breath Review of Systems General: No Chills, No Night Sweats; Fatigue; No Malaise, No Appetite, No Other HEENT: No Head Aches, No Visual Changes, No Eye Pain, No Ear Pain, No Dysphasia, No Sinus Congestion, No Post Nasal Drip, No Sore Throat, No Other Pulmonary: Dyspnea; No Cough, No Pleuritic Chest Pain, No Other Cardiovascular: No: Chest Pain, Palpitations, Orthopnea, Paroxysmal Noc. Dyspnea, Edema, Lt Headedness, Other Objective-Cardiology Exam Last Set of Vital Signs Vital Signs 01/28/23 01/29/23 12:18 07:52 Temp 36.3 Pulse 88 Resp 20 B/P (MAP) 131/68 (89) Pulse Ox 93 O2 Delivery Nasal Cannula O2 Flow Rate 1.50 FiO2 30 I&O Intake and Output 01/29/23 00:00 Intake Total 1730 ml Output Total 2225 ml Balance -495 ml Intake Oral 1730 ml Output Urine Total 2225 ml General: Alert, Oriented X3, Cooperative HEENT: Atraumatic, PERRLA Neck: Supple, No JVD, No Thyromegaly Lungs: Normal Air Movement, Other (Wet rales) Heart: Regular Rate, Normal S1, Normal S2, No Murmurs Abdomen: Normal Bowel Sounds, Soft, No Tenderness, No Hepatosplenomegaly, No Masses Extremities: No Clubbing, No Cyanosis, No Edema, Normal Pulses, No Tenderness/Swelling Skin: No Rashes, No Breakdown, No Significant Lesion Neuro: Normal Gait, Normal Speech, Strength at 5/5 X4 Ext, Normal Tone, Sensation Intact Psych/Mental Status: Mental Status NL, Mood NL Results Lab Laboratory Tests 01/29/23 04:55 A/P-Cardiology Admission Diagnosis Pneumonia Sepsis Paroxysmal atrial fibrillation Hypertension Assessment/Plan Pneumonia, acute shortness of breath Reporting improvement in his dyspnea, overall improving slowly Managed by medical team. Sepsis, leukocytosis Receiving antibiotic and managed by medical team Paroxysmal atrial fibrillation, new onset atrial fibrillation with rapid ventricular response Converted to sinus rhythm after receiving Cardizem drip and amiodarone bolus and a drip Tolerating Cardizem and amiodarone. Continue to monitor CHADVASC score 1, currently maintained on Lovenox. Possible thoracentesis, patient is still hesitant to have the procedure done Patient will need to be on oral anticoagulation prior to discharge Right side pleural effusion. Significant. Patient was reluctant to have thoracentesis. Managed by surgical team COPD. Hypertension, maintained on metoprolol, amlodipine, lisinopril and hydralazine. Monitor blood pressure History of tobacco use. Patient educated on avoiding tobacco History of alcohol use. Educated on avoiding alcohol Hypokalemia, being replaced. Monitor electrolytes. ADELSO ACEVEDO MD Jan 29, 2023 08:56
--- NOTE | 2023-01-29 10:47 | Pulmonary Progress Note ---
Subjective Date Seen by a Provider: Jan 29, 2023 Time Seen by a Provider: 10:42 Subjective/Events-last exam 47 yo M with large right pleural effusion. There was is plan for pleural tap today Other PMH includes COPD, HTN, breathing has been getting worse for one month WBC still high at 17k, Sputum culture shows NRF Oxygen needs have gone down to 1 lpm, now at On po Difulcan Sepsis Event Evaluation Height, Weight, BMI Height: 5'10" Weight: 175lbs. oz. [id number]; 21.32 BMI Method:Stated Exam Exam Patient acknowledged, consented, and participated in this virtual visit which was conducted using real time audio/video Vital Signs Date Time Temp Pulse Resp B/P (MAP) Pulse Ox O2 Delivery O2 Flow Rate FiO2 01/29/23 09:50 Nasal Cannula 1.00 01/29/23 09:44 96 Nasal Cannula 1.50 01/29/23 08:20 Nasal Cannula 2.00 01/29/23 07:52 36.3 88 20 131/68 (89) 93 Nasal Cannula 1.50 01/29/23 07:00 95 01/29/23 04:03 37.2 102 20 132/66 (88) 95 Nasal Cannula 2.00 2.00 01/29/23 03:47 97 Nasal Cannula 2.00 01/29/23 01:00 94 01/29/23 00:01 105 20 136/75 (95) 95 Nasal Cannula 2.00 01/28/23 21:24 95 Nasal Cannula 2.00 01/28/23 20:00 95 Nasal Cannula 2.00 01/28/23 19:33 37.2 92 20 138/73 (94) 94 Nasal Cannula 2.00 2.00 01/28/23 19:00 86 01/28/23 15:31 37.2 107 18 134/79 (97) 98 Nasal Cannula 2.00 01/28/23 14:49 95 Nasal Cannula 2.50 01/28/23 13:00 104 01/28/23 12:18 37.2 98 93 30 01/28/23 11:37 37.2 94 18 138/86 (103) 95 High Flow N/C 2.50 I & O 01/29/23 07:00 Intake Total 2130 ml Output Total 2175 ml Balance -45 ml Height & Weight Height: 5'10" Weight: 175lbs. oz. 79.280452sg; 21.32 BMI Method:Stated General Appearance: No Apparent Distress HEENT: PERRL/EOMI Neck: Non Tender, Supple Respiratory: Chest Non Tender, No Accessory Muscle Use, No Respiratory Distress, Decreased Breath Sounds (throughout right middle and lower lobe), Other (coughing up thick yellow, brown sputum, now blood) Cardiovascular: Regular Rate, Rhythm, Other (has constant productive cough, sputum ) Capillary Refill: Less Than 3 Seconds Gastrointestinal: normal bowel sounds, non tender, soft, no organomegaly, no pulsatile mass Extremity: No Pedal Edema Neurologic/Psychiatric: Alert, Oriented x3 Skin: Normal Color, Damp Results Lab Laboratory Tests 01/28/23 05:18 01/29/23 04:55 Assessment/Plan Assessment/Plan Large pleural effusion, to be tapped today, spoke to pt thrum video camera, Will await results of tap, given purulence of sputum, would re culture Critical Care: Critically Ill Patient Time spent with patient (mins): 15 CAROL KNOWLES MD Jan 29, 2023 10:47
[2023-01-29] MEDS ORDERED: LIDOCAINE 1% INJ 20 ML VIAL ONE (14:05)
[2023-01-29 14:51] LABS: BODY FLUID RBC COUNT 0.018 10^6/uL; BODY FLUID WBC TOTAL COUNT 3.315 10^3/uL
[2023-01-29 15:03] LABS: BODY FLUID COLOR YELLOW; BODY FLUID SOURCE PLEURAL
[2023-01-29 15:04] LABS: BODY FLUID APPEARENCE SLT CLDY
--- NOTE | 2023-01-29 15:21 | Progress Note - Surgery ---
Subjective Time Seen by a Provider: 13:47 Subjective/Events-last exam Pt seen and examined, still coughing "up stuff". Breathing ok. He is ready for thoracentesis. Review of Systems Pulmonary: Dyspnea, Cough Cardiovascular: No: Chest Pain, Palpitations Gastrointestinal: No: Nausea, Vomiting, Abdominal Pain Objective Exam Vital Signs Date Time Temp Pulse Resp B/P (MAP) Pulse Ox O2 Delivery O2 Flow Rate FiO2 01/29/23 14:52 95 Nasal Cannula 1.00 01/29/23 12:24 107 01/29/23 11:50 37.1 99 18 131/69 (89) 94 Nasal Cannula 1.50 01/29/23 09:50 Nasal Cannula 1.00 01/29/23 09:44 96 Nasal Cannula 1.50 01/29/23 08:20 Nasal Cannula 2.00 01/29/23 07:52 36.3 88 20 131/68 (89) 93 Nasal Cannula 1.50 01/29/23 07:00 95 01/29/23 04:03 37.2 102 20 132/66 (88) 95 Nasal Cannula 2.00 2.00 01/29/23 03:47 97 Nasal Cannula 2.00 01/29/23 01:00 94 01/29/23 00:01 105 20 136/75 (95) 95 Nasal Cannula 2.00 01/28/23 21:24 95 Nasal Cannula 2.00 01/28/23 20:00 95 Nasal Cannula 2.00 01/28/23 19:33 37.2 92 20 138/73 (94) 94 Nasal Cannula 2.00 2.00 01/28/23 19:00 86 01/28/23 15:31 37.2 107 18 134/79 (97) 98 Nasal Cannula 2.00 I & O 01/29/23 07:00 Intake Total 2130 ml Output Total 2175 ml Balance -45 ml Capillary Refill : Less Than 3 Seconds General Appearance: No Apparent Distress HEENT: PERRL/EOMI Neck: Non Tender, Supple Respiratory: Chest Non Tender, No Accessory Muscle Use, No Respiratory Distress, Decreased Breath Sounds (throughout right middle and lower lobe), Other (coughing up thick yellow, brown sputum, now blood) Cardiovascular: Regular Rate, Rhythm, Other (has constant productive cough, sputum ) Gastrointestinal: normal bowel sounds, non tender, soft, no organomegaly, no pulsatile mass Extremity: No Pedal Edema Neurologic/Psychiatric: Alert, Oriented x3 Skin: Normal Color Results Lab Laboratory Tests 01/29/23 04:55: White Blood Count 17.0H, Red Blood Count 4.07L, Hemoglobin 11.1L, Hematocrit 34L , Mean Corpuscular Volume 84, Mean Corpuscular Hemoglobin 27, Mean Corpuscular Hemoglobin Concent 33, Red Cell Distribution Width 13.1, Platelet Count 387, Mean Platelet Volume 8.7L, Immature Granulocyte % (Auto) 2, Neutrophils (%) (Au to) 78H, Lymphocytes (%) (Auto) 5L, Monocytes (%) (Auto) 13H, Eosinophils (%) (Auto) 3, Basophils (%) (Auto) 1, Neutrophils # (Auto) 13.2H, Lymphocytes # (Auto) 0.8L, Monocytes # (Auto) 2.1H, Eosinophils # (Auto) 0.5H, Basophils # (Auto) 0.1, Immature Granulocyte # (Auto) 0.3H, Sodium Level 134L, Potassium Level 3.5L, Chloride Level 95L, Carbon Dioxide Level 30, Anion Gap 9, Blood Urea Nitrogen 7, Creatinine 0.68, Estimat Glomerular Filtration Rate 114, BUN/Creatinine Ratio 10, Glucose Level 117H, Calcium Level 9.1, Corrected Calcium 10.1, Magnesium Level 2.0, Total Bilirubin 0.4, Aspartate Amino Transf (AST/SGOT) 18, Alanine Aminotransferase (ALT/SGPT) 27, Alkaline Phosphatase 86, Total Protein 5.9L, Albumin 2.8L 01/29/23 14:25: Body Fluid Source PLEURAL, Body Fluid Color YELLOW, Body Fluid Appearance SLT CLDY, Body Fluid WBC 3.315, Body Fluid RBC 0.018, Body Fl Polynuclear WBCs (%)(Auto) 20.5, Body Fluid Mononuclear Cells % Auto 79.5, Body Fluid Slide Review Yes Microbiology 01/26/23 Urine Culture - Final, Complete NO GROWTH 01/25/23 Gram Stain - Final, Complete 01/25/23 Sputum Culture - Final, Complete Usual upper respiratory gill YEAST 01/22/23 Blood Culture - Final, Complete No growth Assessment/Plan Assessment/Plan Assessment/Plan Pleural Effusion - Acute respiratory failure with hypoxia - stable COPD Tobacco abuse HTN Pt appears stable and WBC is mildly up to 17 from 16.5. He is not getting worse or needed increased O2. Plan for thoracentesis at bedside today; Lovenox was held. MANOLO WOODRUFF DO Jan 29, 2023 15:21
--- NOTE | 2023-01-29 15:23 | Progress Note-Post Operative ---
Post-Operative Progess Note Surgeon (s)/Cabbage Salter (s) Surgeon MANOLO WOODRUFF DO Cabbage Salter: none Pre-Operative Diagnosis pleural effusion Post-Operative Diagnosis same pending cytology and culture Procedure & Operative Findings Date of Procedure 01/29/23 Procedure Performed/Findings Thoracentesis Procedural Note: [Right] Thoracentesis A time out was performed and the chest x-ray was reviewed, the appropriate side was confirmed and marked. The patient was prepped and draped in a sterile manner using chlorhexidine scrub after the appropriate level was percussed and confirmed by ultrasound. 1% lidocaine was used to anesthetize the skin, subcutaneous tissue, superior aspect of the rib periosteum and parietal pleura. . A #11 blade scalpel was used to bennett the skin at the insertion site; which was around 8 or 9th rib. The [id number] needle was then introduced through the skin incision into the pleural space using negative aspiration pressure and got an immediate return of a serosanguinous fluid. The thoracentesis catheter was then threaded without difficulty. Approximately [address] raw colored fluid was removed without difficulty. The catheter was then removed. No immediate complications were noted during the procedure. A post- procedure chest x-ray does not show any pneumothorax; unfortunately there still appears to be almost same amount of fluid in lung. The fluid will be sent for studies. Anesthesia Type local lidocaine Estimated Blood Loss Estimated blood loss (mL): scant Specimens/Packing Specimens Removed 1900ml of pleural fluid MANOLO WOODRUFF DO Jan 29, 2023 15:23
--- NOTE | 2023-01-29 15:33 | Diagnostic Imaging Report ---
EXAMINATION: Chest, 1 view. HISTORY: 01/29/2023. COMPARISON: 01/28/2023. FINDINGS: The heart size and pulmonary vasculature are normal. There is a persistent right pleural effusion with right basilar atelectasis or consolidation. No pneumothorax. The osseous structures are intact. IMPRESSION: Stable right pleural effusion with adjacent atelectasis or consolidation. Dictated by: Dictated on workstation # [id number]
[2023-01-29 15:37] LABS: GLUCOSE,BODY FLUID 104 MG/DL; TOTAL PROTEIN,BODY FLUID 3.4 G/DL
[2023-01-29] MEDS: LIDOCAINE PATCH REMOVAL TP SCH (20:24)
[2023-01-30] VITALS (7 sets, daily range): BP systolic 101–136; BP diastolic 58–86
[2023-01-30] MEDS: RT-ALBUTEROL/IPRATROPIUM 3 ML (DUONEB) VIAL INH SCH ×3 (02:03→15:44)
[2023-01-30] MEDS: guaiFENesin/DM (ROBITUSSIN DM) 10 ML UDC PO PRN ×5 (02:08→22:21)
[2023-01-30] MEDS: HYDROcodone/ACETAMINOPHEN 5 MG/325 MG TABLET PO PRN ×5 (02:08→22:21)
[2023-01-30 05:35] LABS: BASOPHILS # (AUTO) 0.1 10^3/uL (0.0-0.1); BASOPHILS % (AUTO) 1 % (0-10); EOSINOPHILS # (AUTO) 0.3 10^3/uL (0.0-0.3); EOSINOPHILS % (AUTO) 2 % (0-10); HEMATOCRIT 35 % (40-54); HEMOGLOBIN 11.4 g/dL (13.3-17.7); LYMPHOCYTES # (AUTO) 0.9 10^3/uL (1.0-4.0); LYMPHOCYTES % (AUTO) 4 % (12-44); MEAN CORPUSCULAR HEMOGLOBIN 28 pg (25-34); MEAN CORPUSCULAR HGB CONC 33 g/dL (32-36); MEAN CORPUSCULAR VOLUME 84 fL (80-99); MEAN PLATELET VOLUME 8.8 fL (9.0-12.2); MONOCYTES # (AUTO) 2.1 10^3/uL (0.0-1.0); MONOCYTES % (AUTO) 10 % (0-12); NEUTROPHILS % (AUTO) 82 % (42-75); PLATELET COUNT 402 10^3/uL (130-400); WHITE BLOOD COUNT 20.8 10^3/uL (4.3-11.0)
[2023-01-30 05:48] LABS: ALBUMIN 2.8 GM/DL (3.2-4.5); POTASSIUM 3.8 MMOL/L (3.6-5.0)
[2023-01-30 05:49] LABS: CALCIUM 9.2 MG/DL (8.5-10.1)
[2023-01-30 05:51] LABS: TOTAL PROTEIN 6.2 GM/DL (6.4-8.2)
[2023-01-30 05:52] LABS: BILIRUBIN,TOTAL 0.6 MG/DL (0.1-1.0)
[2023-01-30 05:54] LABS: CREATININE SERUM 0.74 MG/DL (0.60-1.30)
[2023-01-30 05:57] LABS: MAGNESIUM 1.9 MG/DL (1.6-2.4)
[2023-01-30] MEDS: POTASSIUM CL 10MEQ/50ML IVPB 50 ML IV SCH (06:32)
[2023-01-30] MEDS: MAGNESIUM 1 GM/100 ML IVPB 100 ML IV SCH ×3 (06:32→08:02)
[2023-01-30] MEDS: KCL 20 MEQ TAB (K-DUR) PO SCH (06:32)
[2023-01-30] MEDS: dilTIAZem 30 MG TABLET PO SCH ×4 (06:40→23:18)
[2023-01-30] MEDS: MULTIVIT W/MINERALS TAB (THERAGRAN M) PO SCH (06:40)
[2023-01-30] MEDS: AMIODARONE 200 MG TABLET PO SCH ×2 (08:03→20:51)
[2023-01-30] MEDS: NICOTINE 14 MG (NICODERM) PATCH TD SCH (08:03)
[2023-01-30] MEDS: lisINopril 40 MG (PRINIVIL) TABLET PO SCH (08:03)
[2023-01-30] MEDS: BENZONATATE 100 MG CAPSULE PO SCH ×3 (08:03→20:51)
[2023-01-30] MEDS: amLODIPine 10 MG TABLET PO SCH (08:03)
[2023-01-30] MEDS: CEFDINIR 300 MG CAPSULE PO SCH ×2 (08:03→20:51)
[2023-01-30] MEDS: LIDOCAINE 4% (SALONPAS) PATCH TOP SCH ×2 (08:03→08:14)
[2023-01-30] MEDS: PATCH REMOVAL TP SCH (08:14)
[2023-01-30] MEDS ORDERED: KCL 20 MEQ TAB (K-DUR) PO ONE (09:00)
[2023-01-30] MEDS: FLUCONAZOLE 200 MG/100 ML 100 ML IV SCH (09:43)
--- NOTE | 2023-01-30 10:25 | Cardiology Progress Note ---
Subjective Date Seen by Provider: Jan 30, 2023 Time Seen by Provider: 10:25 Subjective/Events-last exam Patient was seen at bedside, sitting comfortably, still having shortness of breath Review of Systems General: No Chills, No Night Sweats; Fatigue; No Malaise, No Appetite, No Other HEENT: No Head Aches, No Visual Changes, No Eye Pain, No Ear Pain, No Dysphasia, No Sinus Congestion, No Post Nasal Drip, No Sore Throat, No Other Pulmonary: Dyspnea; No Cough, No Pleuritic Chest Pain, No Other Cardiovascular: No: Chest Pain, Palpitations, Orthopnea, Paroxysmal Noc. Dyspnea, Edema, Lt Headedness, Other Objective-Cardiology Exam Last Set of Vital Signs Vital Signs 01/28/23 01/30/23 01/30/23 12:18 07:55 09:44 Temp 37.2 Pulse 96 Resp 20 B/P (MAP) 112/58 (76) Pulse Ox 93 O2 Delivery Nasal Cannula O2 Flow Rate 1.00 FiO2 30 I&O Intake and Output 01/30/23 00:00 Intake Total 2460 ml Output Total 4400 ml Balance -1940 ml Intake Oral 2460 ml Output Urine Total 2500 ml Other 1900 ml # Bowel Movements 1 General: Alert, Oriented X3, Cooperative HEENT: Atraumatic, PERRLA Neck: Supple, No JVD, No Thyromegaly Lungs: Normal Air Movement, Other (Wet rales) Heart: Regular Rate, Normal S1, Normal S2, No Murmurs Abdomen: Normal Bowel Sounds, Soft, No Tenderness, No Hepatosplenomegaly, No Masses Extremities: No Clubbing, No Cyanosis, No Edema, Normal Pulses, No Tenderness/Swelling Skin: No Rashes, No Breakdown, No Significant Lesion Neuro: Normal Gait, Normal Speech, Strength at 5/5 X4 Ext, Normal Tone, Sensation Intact Psych/Mental Status: Mental Status NL, Mood NL Results Lab Laboratory Tests 01/30/23 05:07 A/P-Cardiology Admission Diagnosis Pneumonia Sepsis Paroxysmal atrial fibrillation Hypertension Assessment/Plan Pneumonia, acute shortness of breath Reporting improvement in his dyspnea, overall improving slowly Managed by medical team. Sepsis, leukocytosis Receiving antibiotic and managed by medical team Paroxysmal atrial fibrillation, new onset atrial fibrillation with rapid ventricular response Converted to sinus rhythm after receiving Cardizem drip and amiodarone bolus and a drip Tolerating Cardizem and amiodarone. Continue to monitor CHADVASC score 1, currently maintained on Lovenox. Possible thoracentesis, patient is still hesitant to have the procedure done Patient will need to be on oral anticoagulation prior to discharge Right side pleural effusion. Status postthoracentesis done on January 29, 2023, Managed by medical team. Continue to monitor COPD. Hypertension, maintained on metoprolol, amlodipine, lisinopril and hydralazine. Monitor blood pressure History of tobacco use. Patient educated on avoiding tobacco History of alcohol use. Educated on avoiding alcohol Hypokalemia, being replaced. Monitor electrolytes. ADELSO ACEVEDO MD Jan 30, 2023 10:25
--- NOTE | 2023-01-30 10:28 | Progress Note - Surgery ---
Subjective Time Seen by a Provider: 10:21 Subjective/Events-last exam Pt seen and examined, states his breathing might be slightly better. Still coughing up stuff. Breathing is better when he sits up. Review of Systems General: Fatigue, Malaise Pulmonary: Dyspnea, Cough Cardiovascular: No: Chest Pain, Palpitations Gastrointestinal: No: Nausea, Vomiting, Abdominal Pain Objective Exam Vital Signs Date Time Temp Pulse Resp B/P (MAP) Pulse Ox O2 Delivery O2 Flow Rate FiO2 01/30/23 09:44 96 20 112/58 (76) 93 Nasal Cannula 1.00 01/30/23 09:35 94 Nasal Cannula 1.00 01/30/23 08:14 Nasal Cannula 1.00 01/30/23 07:55 37.2 115 20 122/86 (98) 96 Nasal Cannula 1.00 01/30/23 07:00 102 01/30/23 04:10 36.3 95 16 101/59 (73) 93 Nasal Cannula 1.00 01/30/23 02:03 94 Nasal Cannula 1.00 01/30/23 00:50 109 01/29/23 23:12 36.8 106 18 105/70 (82) 95 Nasal Cannula 1.00 01/29/23 21:47 97 Nasal Cannula 1.00 01/29/23 20:30 Nasal Cannula 1.00 01/29/23 19:31 37.8 100 18 118/69 (85) 93 1.00 01/29/23 19:00 107 01/29/23 15:32 36.5 100 18 132/74 (93) Nasal Cannula 1.00 01/29/23 14:52 95 Nasal Cannula 1.00 01/29/23 12:24 107 01/29/23 11:50 37.1 99 18 131/69 (89) 94 Nasal Cannula 1.50 I & O 01/30/23 07:00 Intake Total 2160 ml Output Total 3550 ml Balance -1390 ml Capillary Refill : Less Than 3 Seconds General Appearance: No Apparent Distress HEENT: PERRL/EOMI Neck: Non Tender, Supple Respiratory: Chest Non Tender, No Accessory Muscle Use, No Respiratory Distress, Decreased Breath Sounds (throughout right middle and lower lobe), Other (coughing up thick yellow, brown sputum, now blood) Cardiovascular: Regular Rate, Rhythm, Other (has constant productive cough, sputum ) Gastrointestinal: normal bowel sounds, non tender, soft, no organomegaly, no pulsatile mass Extremity: No Pedal Edema Neurologic/Psychiatric: Alert, Oriented x3 Skin: Normal Color Results Lab Laboratory Tests 01/29/23 14:25: Body Fluid Source PLEURAL, Body Fluid Color YELLOW, Body Fluid Appearance SLT CLDY, Body Fluid WBC 3.315, Body Fluid RBC 0.018, Body Fl Polynuclear WBCs (%)(Auto) 20.5, Body Fluid Mononuclear Cells % Auto 79.5, Body Fluid Slide Review Yes, Body Fluid Glucose 104, Body Fluid Total Protein 3.4 01/30/23 05:07: White Blood Count 20.8H, Red Blood Count 4.15L, Hemoglobin 11.4L, Hematocrit 35L , Mean Corpuscular Volume 84, Mean Corpuscular Hemoglobin 28, Mean Corpuscular Hemoglobin Concent 33, Red Cell Distribution Width 13.2, Platelet Count 402H, Mean Platelet Volume 8.8L, Immature Granulocyte % (Auto) 2, Neutrophils (%) (Auto) 82H, Lymphocytes (%) (Auto) 4L, Monocytes (%) (Auto) 10, Eosinophils (%) (Auto) 2, Basophils (%) (Auto) 1, Neutrophils # (Auto) 17.0H, Lymphocytes # (Auto) 0.9L, Monocytes # (Auto) 2.1H, Eosinophils # (Auto) 0.3, Basophils # (Auto) 0.1, Immature Granulocyte # (Auto) 0.3H, Sodium Level 134L, Potassium Level 3.8, Chloride Level 95L, Carbon Dioxide Level 28, Anion Gap 11, Blood Urea Nitrogen 8, Creatinine 0.74, Estimat Glomerular Filtration Rate 111, BUN/Creatinine Ratio 11, Glucose Level 106H, Calcium Level 9.2, Corrected Calcium 10.2H, Magnesium Level 1.9, Total Bilirubin 0.6, Aspartate Amino Transf (AST/SGOT) 15, Alanine Aminotransferase (ALT/SGPT) 31, Alkaline Phosphatase 81, Total Protein 6.2L, Albumin 2.8L Microbiology 01/26/23 Urine Culture - Final, Complete NO GROWTH 01/25/23 Gram Stain - Final, Complete 01/25/23 Sputum Culture - Final, Complete Usual upper respiratory gill YEAST 01/22/23 Blood Culture - Final, Complete No growth Assessment/Plan Assessment/Plan Assessment/Plan Pleural Effusion - Acute respiratory failure with hypoxia - stable COPD Tobacco abuse HTN Pt had thoracentesis at bedside yesterday, got out 1900ml; which was sent for culture and cytology. Pt told he must use IS and take deep breaths to get his lung to expand into the space made; it was being decompressed by the fluid. Continue medical management. No CXR ordered today. MANOLO WOODRUFF DO Jan 30, 2023 10:28
--- NOTE | 2023-01-30 11:33 | Pulmonary Progress Note ---
Subjective Date Seen by a Provider: Jan 30, 2023 Time Seen by a Provider: 11:24 Subjective/Events-last exam History of Present Illness (Tele-ICU Physician/pulmonary , follow up report as requested by PCP ) Service provided via interactive audio and video telecommunications [employer] system to a patient admitted to ICU bed in [facility]. Patient is seen today on medical floor room 404 via video Ipad Available chart/ vitals / labs / Images reviewed Video assessment done using teleICU camera, rest of exam as per RN He is a 47-year-old male with past medical history of COPD and longstanding his tory of smoking presented to the emergency room with progressively worsening shortness of breath associated with a cough and some sputum production. He does not know whether he had any fever however he is states that he had chest pains bilaterally whenever he coughs. In the emergency room chest x-ray done showed a right sided moderate to large pleural effusion with possible underlying infiltrate. He is a hypoxic requiring supplemental oxygen. He is admitted to intensive care unit initially and transfered to medical floor after stabilization. 01/30/23 He underwent right thoracentesis on 01/29/2023 and removed apparently 1900 cc of fluid. Initial analysis of the fluid revealed almost 70% mononuclear cells with protein of over 3 g suggestive of free exudate. Given his tobacco abuse history and mononuclear cell predominance with exudative fluid I am concerned whether patient may have an underlying malignancy with malignant pleural effusion. However his pleural fluid cytology is pending. Usually the pleural fluid cytology yield is less than 50%. At this point I want to scan him with a CT scan to see whether he has any any underlying mass lesions both in the abdomen and chest. Today I have visualized him via video iPad and the he states he is feeling somewhat better. He has a mild cough. He is on supplemental oxygen via nasal cannula but in no acute distress. Impression 1. Subacute to chronic right pleural effusion status post right thoracentesis. Pleural fluid is exudate to. We have to rule out underlying malignancy at this point. 2. Also chronic or subacute empyema is also a possibility. 3. Acute hypoxic respiratory failure improving. Recommendations 1. We will get a CT of the chest, abdomen and pelvis with contrast to rule out any underlying malignancy. 2. We will await pleural fluid cytology results. 3. Suggest DVT prophylaxis. I have discussed my thoughts with the patient and the RN. Coordination of care with primary care physician and bedside consultants. Time spent today for this visit is approximately 20 minutes. Certain portions of this document may have been dictated utilizing voice recognition technology such as Zach[employer] Prell. Inherent to this technology, typographical and grammatical errors may exist. As much as I am diligent to identify and correct to these mistakes, some errors may remain in the document. Sepsis Event Evaluation Height, Weight, BMI Height: 5'10" Weight: 175lbs. oz. 79.315767dl; 21.32 BMI Method:Stated Exam Exam Patient acknowledged, consented, and participated in this virtual visit which was conducted using real time audio/video Vital Signs Date Time Temp Pulse Resp B/P (MAP) Pulse Ox O2 Delivery O2 Flow Rate FiO2 01/30/23 09:44 96 20 112/58 (76) 93 Nasal Cannula 1.00 01/30/23 09:35 94 Nasal Cannula 1.00 01/30/23 08:14 Nasal Cannula 1.00 01/30/23 07:55 37.2 115 20 122/86 (98) 96 Nasal Cannula 1.00 01/30/23 07:00 102 01/30/23 04:10 36.3 95 16 101/59 (73) 93 Nasal Cannula 1.00 01/30/23 02:03 94 Nasal Cannula 1.00 01/30/23 00:50 109 01/29/23 23:12 36.8 106 18 105/70 (82) 95 Nasal Cannula 1.00 01/29/23 21:47 97 Nasal Cannula 1.00 01/29/23 20:30 Nasal Cannula 1.00 01/29/23 19:31 37.8 100 18 118/69 (85) 93 1.00 01/29/23 19:00 107 01/29/23 15:32 36.5 100 18 132/74 (93) Nasal Cannula 1.00 01/29/23 14:52 95 Nasal Cannula 1.00 01/29/23 12:24 107 01/29/23 11:50 37.1 99 18 131/69 (89) 94 Nasal Cannula 1.50 I & O 01/30/23 07:00 Intake Total 2160 ml Output Total 3550 ml Balance -1390 ml Height & Weight Height: 5'10" Weight: 175lbs. oz. 79.273785hx; 21.32 BMI Method:Stated General Appearance: No Apparent Distress HEENT: PERRL/EOMI Neck: Non Tender, Supple Respiratory: Chest Non Tender, No Accessory Muscle Use, No Respiratory Distress, Decreased Breath Sounds (throughout right middle and lower lobe), Other (coughing up thick yellow, brown sputum, now blood) Cardiovascular: Regular Rate, Rhythm, Other (has constant productive cough, sputum ) Capillary Refill: Less Than 3 Seconds Gastrointestinal: normal bowel sounds, non tender, soft, no organomegaly, no pulsatile mass Extremity: No Pedal Edema Neurologic/Psychiatric: Alert, Oriented x3 Skin: Normal Color Results Lab Laboratory Tests 01/29/23 04:55 01/30/23 05:07 Assessment/Plan Assessment/Plan as above Critical Care: Critically Ill Patient Time spent with patient (mins): 20 HAYLEY ONEILL MD Jan 30, 2023 11:33
--- NOTE | 2023-01-30 12:12 | Progress Note - Hospitalist ---
DONNA SANTOS 01/30/23 1212: Subjective HPI/CC On Admission Song Albarado is a 47 year old male with PMH HTN, COPD, tobacco abuse, who presented with shortness of breath. He has been feeling unwell for the past month but has worsened over the past week. He has been short of breath. He has had a cough with sputum. He denies fevers. He has had chest pain associated with coughing. He denies abdominal pain, nausea, vomiting, and diarrhea. He has not followed up with his doctor in over a year. He had been following [facility]. Subjective/Events-last exam Pt is sitting upright in chair and appears more comfortable compared to previous examinations. He is maintained 1L of supplemental oxygen at this time. He reports reduction in dyspnea and a decreased frequency of cough. He continues to to have right sided fib pain with coughing, however he notes some of this pain is due to tenderness following thoracentesis yesterday. He denies chest pain, N/V/D, or myalgias. He had 1 BM last night. Objective Exam Vital Signs Vital Signs Date Time Temp Pulse Resp B/P (MAP) Pulse Ox O2 Delivery O2 Flow Rate FiO2 01/30/23 11:42 37.1 96 20 104/64 (77) 95 Nasal Cannula 1.00 01/28/23 12:18 30 Capillary Refill : Less Than 3 Seconds General Appearance: No Apparent Distress HEENT: PERRL/EOMI Respiratory: Chest Non Tender, Lungs Clear, Normal Breath Sounds, No Accessory Muscle Use, No Respiratory Distress, Decreased Breath Sounds (right lower and middlle lobe, improving ) Cardiovascular: Regular Rate, Rhythm Gastrointestinal: Normal Bowel Sounds, Non Tender Extremity: No Calf Tenderness Neurologic/Psychiatric: Alert, Oriented x3 Skin: Normal Color, Warm/Dry Results/Procedures Lab Laboratory Tests 01/30/23 05:07 Patient resulted labs reviewed. Imaging: Reviewed Imaging Films, Reviewed Imaging Report Assessment/Plan Assessment and Plan Assess & Plan/Chief Complaint Pneumonia Parapneumonic effusion, right lobe Acute respiratory failure with hypoxia Sepsis - Thoracentesis done 01/29 yielded 1900 mL of straw colored fluid; fluid cultures pending - Supplemental oxygen weaned to 1L from 4 L at admission (non-oxygen dependent at home) - Leukocytosis of ~ 20 from ~ 17 yesterday; possibly related to procedure. Overall down from ~22 at admission. - CXR 01/26 showing "unchanged moderate right pleural effusion" compared to previous CXRs - CXR 01/25 showing "interval decrease in right pleural fluid with persistent atelectasis" compared to 01/24 CXR - CXR 01/24 showing "increasing size of now moderately large right pleural effusion" compared to 01/22 CXR - Sputum cultures resulted yeast, blood cultures resulted no growth - Azithromycin 500 mg and Cefepime 50 mL @ 100 mL 01/23 - 01/28 - Fluconazole 100 ml @ 100 ml/s since 01/28 - Cefdinir 300 mg since 01/28 - Continue incentive spirometry AFib with RVR - per patient and records, this appears to be a new diagnosis - rate controlled and sinus rhythm at this time - Amiodarone 400 mg PO - DIltiazem 30 mg PO COPD Tobacco use - Duonebs 3mL - Nicotine patch 14 mg HTN - Metoprolol 25 mg - Amlodipine 10 mg - Lisinopril 40 mg - Hydralazine 10 mg Hypokalemia - resolved at this time PAIGE PEÑA MD 01/30/23 1242: Assessment/Plan Assessment and Plan Assess & Plan/Chief Complaint Pt reports feeling better today. No new complaints. Breathing and coughing better. Had thora done yesterday with 1900mL out. CT Chest/Abd/pelvis ordered by pulmonology. WBC up slightly today. Continue to wean oxygen. Supervisory-Addendum Brief Verification & Attestation Participated in pt care: history, MDM, physical Personally performed: exam, history, MDM, supervision of care Care discussed with: Medical Student Procedures: n/a Results interpretation: Verified all documentation Verification and Attestation of Medical Student E/M Service A medical student performed and documented this service in my presence. I reviewed and verified all information documented by the medical student and made modifications to such information, when appropriate. I personally performed the physical exam and medical decision making. Paige Peña, Jan 30, 2023,12:39 DONNA SANTOS Jan 30, 2023 12:12 PAIGE PEÑA MD Jan 30, 2023 12:42
[2023-01-30] MEDS ORDERED: NS 100 ML (IVPB) BAG IV ONE (12:15)
[2023-01-30] MEDS ORDERED: CATHETER FLUSH 10 ML SYR IV PRN (12:15)
[2023-01-30] MEDS ORDERED: IOHEXOL 350 MG/ML 100 ML (OMNIPAQUE 350) VIAL IV ONE (12:15)
[2023-01-30] MEDS ORDERED: HOLD METFORMIN - RECEIVED CONTRAST 20 ML VIAL IV SCH (12:15)
--- NOTE | 2023-01-30 13:45 | Diagnostic Imaging Report ---
EXAMINATION: CTA of the chest was performed. CT abdomen and pelvis with intravenous contrast. TECHNIQUE: CTA of the chest was performed with contrast bolus timing optimized for evaluation of the arterial structures. Immediately following, multiple contiguous axial images were obtained through the abdomen and pelvis after the uneventful administration of intravenous contrast. 3-D reformats of the chest were performed. All CT scans use one or more of the following dose optimizing techniques: automated exposure control, MA and/or KvP adjustment based on patient size and exam type or iterative reconstruction. HISTORY: Followup pleural effusion. Cough. Concern for malignancy. COMPARISON: None. CTA chest: No aneurysm or dissection in the thoracic aorta. No pulmonary emboli are seen to the segmental pulmonary arteries. The heart size is within normal limits. No pericardial effusion is present. Prominent lymph nodes are seen in the mediastinum and hilar regions. There is a large mass within the mid and lower right lung measuring approximately 13.5 x 8.7 cm. Associated small right-sided pleural effusion is seen. The left lung is clear. No acute osseous abnormalities. CT abdomen and pelvis: No aneurysm or dissection in the abdominal aorta. There is calcified aortic and iliac atherosclerotic plaque. The liver, spleen, pancreas, adrenal glands, and kidneys have a normal appearance. The gallbladder is decompressed. There is no pathologically enlarged mesenteric or retroperitoneal adenopathy. The bowel loops are nondilated. There is no free fluid or free air. No acute osseous abnormalities. Ureters and bladder are normal. There is no free air, loculated collection, or adenopathy in the pelvis. IMPRESSION: 1. Large mass in the mid and lower right lung with associated small right-sided pleural effusion. This may be amenable to bronchoscopy guided biopsy. PET/CT can also be performed to further characterize. 2. Lymphadenopathy in the mediastinum and bilateral hilar regions. 3. No evidence of pulmonary emboli to the segmental pulmonary arteries. No aneurysm or dissection in the thoracic and abdominal aorta. Dictated by: Dictated on workstation # [id number]
[2023-01-30] MEDS: LIDOCAINE PATCH REMOVAL TP SCH (20:52)
[2023-01-31] VITALS (7 sets, daily range): BP systolic 103–126; BP diastolic 55–75
[2023-01-31] MEDS: RT-ALBUTEROL/IPRATROPIUM 3 ML (DUONEB) VIAL INH SCH ×5 (01:25→19:32)
[2023-01-31 05:43] LABS: BASOPHILS # (AUTO) 0.1 10^3/uL (0.0-0.1); BASOPHILS % (AUTO) 1 % (0-10); EOSINOPHILS # (AUTO) 0.4 10^3/uL (0.0-0.3); EOSINOPHILS % (AUTO) 2 % (0-10); HEMATOCRIT 36 % (40-54); HEMOGLOBIN 11.8 g/dL (13.3-17.7); LYMPHOCYTES # (AUTO) 0.9 10^3/uL (1.0-4.0); LYMPHOCYTES % (AUTO) 4 % (12-44); MEAN CORPUSCULAR HEMOGLOBIN 27 pg (25-34); MEAN CORPUSCULAR HGB CONC 32 g/dL (32-36); MEAN CORPUSCULAR VOLUME 83 fL (80-99); MEAN PLATELET VOLUME 8.7 fL (9.0-12.2); MONOCYTES # (AUTO) 2.3 10^3/uL (0.0-1.0); MONOCYTES % (AUTO) 10 % (0-12); NEUTROPHILS # (AUTO) 19.1 10^3/uL (1.8-7.8); NEUTROPHILS % (AUTO) 82 % (42-75); PLATELET COUNT 438 10^3/uL (130-400); WHITE BLOOD COUNT 23.2 10^3/uL (4.3-11.0)
[2023-01-31 06:04] LABS: ALBUMIN 2.9 GM/DL (3.2-4.5)
[2023-01-31 06:05] LABS: POTASSIUM 4.3 MMOL/L (3.6-5.0)
[2023-01-31 06:06] LABS: CALCIUM 9.6 MG/DL (8.5-10.1)
[2023-01-31 06:07] LABS: TOTAL PROTEIN 6.9 GM/DL (6.4-8.2)
[2023-01-31 06:09] LABS: BILIRUBIN,TOTAL 0.5 MG/DL (0.1-1.0)
[2023-01-31 06:11] LABS: CREATININE SERUM 0.74 MG/DL (0.60-1.30)
[2023-01-31 06:14] LABS: MAGNESIUM 2.3 MG/DL (1.6-2.4)
[2023-01-31] MEDS: HYDROcodone/ACETAMINOPHEN 5 MG/325 MG TABLET PO PRN ×4 (06:17→23:50)
[2023-01-31] MEDS: guaiFENesin/DM (ROBITUSSIN DM) 10 ML UDC PO PRN ×3 (06:17→23:50)
[2023-01-31] MEDS: MULTIVIT W/MINERALS TAB (THERAGRAN M) PO SCH (06:17)
[2023-01-31] MEDS: MAGNESIUM 1 GM/100 ML IVPB 100 ML IV SCH (06:17)
[2023-01-31] MEDS: POTASSIUM CL 10MEQ/50ML IVPB 50 ML IV SCH (06:18)
[2023-01-31] MEDS: KCL 20 MEQ TAB (K-DUR) PO SCH (06:19)
[2023-01-31] MEDS: dilTIAZem 30 MG TABLET PO SCH ×4 (06:22→23:50)
[2023-01-31 06:58] LABS: EOSINOPHILS % (MANUAL) 3 %; HYPOCHROMASIA SLIGHT; LYMPHOCYTES % (MANUAL) 6 %; MONOCYTES % (MANUAL) 13 %; NEUTROPHILS % (MANUAL) 78 %; PLATELET ESTIMATE INCREASED
[2023-01-31] MEDS: amLODIPine 10 MG TABLET PO SCH (09:04)
[2023-01-31] MEDS: BENZONATATE 100 MG CAPSULE PO SCH ×3 (09:04→19:18)
[2023-01-31] MEDS: CEFDINIR 300 MG CAPSULE PO SCH (09:04)
[2023-01-31] MEDS: FLUCONAZOLE 200 MG/100 ML 100 ML IV SCH (09:04)
[2023-01-31] MEDS: NICOTINE 14 MG (NICODERM) PATCH TD SCH (09:04)
[2023-01-31] MEDS: AMIODARONE 200 MG TABLET PO SCH ×2 (09:04→21:15)
[2023-01-31] MEDS: lisINopril 40 MG (PRINIVIL) TABLET PO SCH (09:04)
[2023-01-31] MEDS: PATCH REMOVAL TP SCH (09:05)
[2023-01-31] MEDS: LIDOCAINE 4% (SALONPAS) PATCH TOP SCH (09:05)
--- NOTE | 2023-01-31 10:17 | Cardiology Progress Note ---
Subjective Date Seen by Provider: Jan 31, 2023 Time Seen by Provider: 10:17 Subjective/Events-last exam Patient was seen at bedside, sitting comfortably. Still having some shortness of breath Review of Systems General: No Chills, No Night Sweats; Fatigue; No Malaise, No Appetite, No Other HEENT: No Head Aches, No Visual Changes, No Eye Pain, No Ear Pain, No Dysphas ia, No Sinus Congestion, No Post Nasal Drip, No Sore Throat, No Other Pulmonary: Dyspnea; No Cough, No Pleuritic Chest Pain, No Other Cardiovascular: No: Chest Pain, Palpitations, Orthopnea, Paroxysmal Noc. Dyspnea, Edema, Lt Headedness, Other Objective-Cardiology Exam Last Set of Vital Signs Vital Signs 01/28/23 01/31/23 01/31/23 12:18 07:46 09:11 Temp 36.1 Pulse 101 Resp 18 B/P (MAP) 109/72 (84) Pulse Ox 93 O2 Delivery Nasal Cannula O2 Flow Rate 1.00 FiO2 30 I&O Intake and Output 01/31/23 00:00 Intake Total 2150 ml Balance 2150 ml Intake Oral 1830 ml IV Total 300 ml IV Contrast 20 ml # Voids 10 General: Alert, Oriented X3, Cooperative HEENT: Atraumatic, PERRLA Neck: Supple, No JVD, No Thyromegaly Lungs: Normal Air Movement, Other (Wet rales) Heart: Regular Rate, Normal S1, Normal S2, No Murmurs Abdomen: Normal Bowel Sounds, Soft, No Tenderness, No Hepatosplenomegaly, No Masses Extremities: No Clubbing, No Cyanosis, No Edema, Normal Pulses, No Tenderness/Swelling Skin: No Rashes, No Breakdown, No Significant Lesion Neuro: Normal Gait, Normal Speech, Strength at 5/5 X4 Ext, Normal Tone, Sensation Intact Psych/Mental Status: Mental Status NL, Mood NL Results Lab Laboratory Tests 01/31/23 05:14 A/P-Cardiology Admission Diagnosis Pneumonia Sepsis Paroxysmal atrial fibrillation Hypertension Assessment/Plan Pneumonia, acute shortness of breath Reporting improvement in his dyspnea, overall improving slowly Managed by medical team. Lung mass, identified on CT scan Most probably malignant Managed by medical team Sepsis, leukocytosis Receiving antibiotic and managed by medical team Paroxysmal atrial fibrillation, new onset atrial fibrillation with rapid ventricular response Converted to sinus rhythm after receiving Cardizem drip and amiodarone bolus and a drip Tolerating Cardizem and amiodarone. Continue to monitor CHADVASC score 1, currently maintained on Lovenox. Possible thoracentesis, patient is still hesitant to have the procedure done Patient will need to be on oral anticoagulation prior to discharge Right side pleural effusion. Status postthoracentesis done on January 29, 2023, Managed by medical team. Continue to monitor COPD. Hypertension, maintained on metoprolol, amlodipine, lisinopril and hydralazine. Monitor blood pressure History of tobacco use. Patient educated on avoiding tobacco History of alcohol use. Educated on avoiding alcohol Hypokalemia, being replaced. Monitor electrolytes. ADELSO ACEVEDO MD Jan 31, 2023 10:17
--- NOTE | 2023-01-31 11:27 | Pulmonary Progress Note ---
Subjective Date Seen by a Provider: Jan 31, 2023 Time Seen by a Provider: 11:14 Subjective/Events-last exam (Tele-pulmonary Physician , consultation as per request of PCP Service provided via interactive audio and video telecommunications [employer] system to a patient admitted to [facility]. patyient is feeling littel better ++ cough with brown secretions 1-2 L O2 A/P Large mass RLL ( with LAD ) - highly suspicion for CA Right-sided pleural effusion, s/p right thoracentesis 1.8L ( exudate, path pending ) - might be reasonable to await for path from fluids, obtain PET as outpt - > might need PET / and bronchoscopy with Bx to establish tissue Dx and staging Assess for O2 needs no more abx will be beneficial at present time monitor for dyspnea - can have fast fluid in plural space re accumulation I have discussed my thoughts with the patient and the RN. Coordination of care with primary care physician and bedside consultants. Time spent today for this visit is approximately 20 minutes. Sepsis Event Evaluation Height, Weight, BMI Height: 5'10" Weight: 175lbs. oz. 79.216150fm; 21.32 BMI Method:Stated Exam Exam Patient acknowledged, consented, and participated in this virtual visit which was conducted using real time audio/video Vital Signs Date Time Temp Pulse Resp B/P (MAP) Pulse Ox O2 Delivery O2 Flow Rate FiO2 01/31/23 09:11 93 Nasal Cannula 1.00 01/31/23 08:30 Nasal Cannula 1.50 01/31/23 07:46 36.1 101 18 109/72 (84) 89 Nasal Cannula 1.50 01/31/23 07:05 92 01/31/23 03:35 36.4 100 18 103/65 (78) 93 Room Air 1.50 1.50 01/31/23 02:28 94 Room Air 01/31/23 01:00 92 01/30/23 23:12 36.0 105 18 121/75 (90) 92 Nasal Cannula 1.50 1.50 01/30/23 21:00 Nasal Cannula 1.50 01/30/23 19:15 36.5 105 18 121/62 (81) 92 Nasal Cannula 1.50 01/30/23 19:00 104 01/30/23 15:47 92 Room Air 01/30/23 15:33 37.1 97 20 136/63 (87) 93 Nasal Cannula 1.50 01/30/23 12:21 97 01/30/23 11:42 37.1 96 20 104/64 (77) 95 Nasal Cannula 1.00 I & O 01/31/23 07:00 Intake Total 2200 ml Balance 2200 ml Height & Weight Height: 5'10" Weight: 175lbs. oz. 79.559453kr; 21.32 BMI Method:Stated General Appearance: No Apparent Distress HEENT: PERRL/EOMI Neck: Non Tender, Supple Respiratory: Chest Non Tender, Lungs Clear, Normal Breath Sounds, No Accessory Muscle Use, No Respiratory Distress, Decreased Breath Sounds (right lower and m iddlle lobe, improving ) Cardiovascular: Regular Rate, Rhythm Capillary Refill: Less Than 3 Seconds Gastrointestinal: normal bowel sounds, non tender, soft, no organomegaly, no pulsatile mass Extremity: No Calf Tenderness Neurologic/Psychiatric: Alert, Oriented x3 Skin: Normal Color, Warm/Dry Results Lab Laboratory Tests 01/30/23 05:07 01/31/23 05:14 Assessment/Plan Assessment/Plan 1 CHELA DICKERSON MD Jan 31, 2023 11:27
--- NOTE | 2023-01-31 13:01 | Progress Note - Hospitalist ---
DONNA SANTOS 01/31/23 1301: Subjective HPI/CC On Admission Song Albarado is a 47 year old male with PMH HTN, COPD, tobacco abuse, who presented with shortness of breath. He has been feeling unwell for the past month but has worsened over the past week. He has been short of breath. He has had a cough with sputum. He denies fevers. He has had chest pain associated with coughing. He denies abdominal pain, nausea, vomiting, and diarrhea. He has not followed up with his doctor in over a year. He had been following at [facility]. Subjective/Events-last exam Patient is breathing more easily sitting upright in chair. He unchanged cough/sputum production compared to yesterday. He continues to have right-sided rib pain with coughing fits. He denies chest pain, shoulder pain, extremity pain, or N/V/D. Objective Exam Vital Signs Vital Signs Date Time Temp Pulse Resp B/P (MAP) Pulse Ox O2 Delivery O2 Flow Rate FiO2 01/31/23 12:36 103 01/31/23 11:48 36.9 18 105/70 (82) 97 Nasal Cannula 1.00 01/28/23 12:18 30 Capillary Refill : Less Than 3 Seconds General Appearance: No Apparent Distress HEENT: PERRL/EOMI Respiratory: Chest Non Tender, Lungs Clear, Normal Breath Sounds Cardiovascular: Regular Rate, Rhythm Extremity: No Pedal Edema Neurologic/Psychiatric: Alert, Oriented x3 Skin: Normal Color, Warm/Dry Results/Procedures Lab Laboratory Tests 01/31/23 05:14 Patient resulted labs reviewed. Imaging: Reviewed Imaging Films, Reviewed Imaging Report Assessment/Plan Assessment and Plan Assess & Plan/Chief Complaint Pulmonary mass (since 01/30) Tobacco use - CTA on 01/30 demonstrating large mass in the mid and lower right lung - Oncology consulted for inpatient evaluation Pneumonia Parapneumonic effusion, right lobe Acute respiratory failure with hypoxia Sepsis - Increasing leukocytosis (~22 from 23 at admission) possibly resulting from lung mass and reflecting post-obstructive pneumonia - IV Cefipime restarted today per increasing leukocytosis; Cefdinir from -, IV Cefipime and IV Azithromycin from 01/23-728 - Fluconazole since 01/28 - Currently maintained on 1.5 weaned from 4L at admission (non-oxygen dependent at home) - Thoracentesis on 01/29 yielded 1900 mL of straw colored fluid; fluid cultures and cytology pending - Sputum cultures resulted yeast on 01/26; blood cultures resulted no growth - CXR 01/26 showing "unchanged moderate right pleural effusion" compared to previous CXRs - CXR 01/25 showing "interval decrease in right pleural fluid" compared to 01/24 CXR - CXR 01/24 showing "increasing size of now moderately large right pleural effusion" compared to 01/22 CXR AFib with RVR - per patient and records, this appears to be a new diagnosis - rate controlled and sinus rhythm at this time - Amiodarone 400 mg PO - DIltiazem 30 mg PO COPD - Duonebs 3mL - Nicotine patch 14 mg HTN - Metoprolol 25 mg - Amlodipine 10 mg - Lisinopril 40 mg - Hydralazine 10 mg Hypokalemia - resolved at this time Will keep patient another night due to worsening leukocytosis, which may reflect post-obstructive pneumonia in the context of a lung mass seen on yesterday's CT. IV Cefipime was restarted today. MARY PEÑA MD 01/31/232058: Assessment/Plan Assessment and Plan Assess & Plan/Chief Complaint Discussed CT results with Dr Montano. She has already informed him of mass on CT concerning for cancer. He reported to her he has been aware of this mass for years after having a CXR. Discussed with patient mikael need to await pathology results and that with his WBC increasing it is best not to DC until that is improving. He is still requiring oxygen. He expresses frustrating with needing to stay in the hospital further but ultimately agrees. Resumed IV abx today. Supervisory-Addendum Brief Verification & Attestation Participated in pt care: history, MDM, physical Personally performed: exam, history, MDM, supervision of care Care discussed with: Medical Student Procedures: n/a Results interpretation: Verified all documentation Verification and Attestation of Medical Student E/M Service A medical student performed and documented this service in my presence. I reviewed and verified all information documented by the medical student and made modifications to such information, when appropriate. I personally performed the physical exam and medical decision making. Mary Peña, Jan 31, 2023,20:57 DONNA SANTOS Jan 31, 2023 13:01 MARY PEÑA MD Jan 31, 2023 20:59
[2023-01-31] MEDS: CEFEPIME INJECTION 1,000 MG in NS (IVPB) 50 ML 50 ML IV SCH ×3 (13:17→23:50)
--- NOTE | 2023-01-31 14:03 | Progress Note - Surgery ---
Subjective Time Seen by a Provider: 12:39 Subjective/Events-last exam Pt seen and examined, states his breathing is the same and still coughing up thick phlegm. Review of Systems Pulmonary: Dyspnea, Cough Cardiovascular: No: Chest Pain Gastrointestinal: No: Nausea, Vomiting, Abdominal Pain Objective Exam Vital Signs Date Time Temp Pulse Resp B/P (MAP) Pulse Ox O2 Delivery O2 Flow Rate FiO2 01/31/23 13:40 88 Nasal Cannula 2.00 01/31/23 12:36 103 01/31/23 11:48 36.9 94 18 105/70 (82) 97 Nasal Cannula 1.00 01/31/23 09:11 93 Nasal Cannula 1.00 01/31/23 08:30 Nasal Cannula 1.50 01/31/23 07:46 36.1 101 18 109/72 (84) 89 Nasal Cannula 1.50 01/31/23 07:05 92 01/31/23 03:35 36.4 100 18 103/65 (78) 93 Room Air 1.50 1.50 01/31/23 02:28 94 Room Air 01/31/23 01:00 92 01/30/23 23:12 36.0 105 18 121/75 (90) 92 Nasal Cannula 1.50 1.50 01/30/23 21:00 Nasal Cannula 1.50 01/30/23 19:15 36.5 105 18 121/62 (81) 92 Nasal Cannula 1.50 01/30/23 19:00 104 01/30/23 15:47 92 Room Air 01/30/23 15:33 37.1 97 20 136/63 (87) 93 Nasal Cannula 1.50 I & O 01/31/23 07:00 Intake Total 2200 ml Balance 2200 ml Capillary Refill : Less Than 3 Seconds General Appearance: No Apparent Distress, Chronically ill HEENT: PERRL/EOMI Respiratory: Lungs Clear, No Accessory Muscle Use, No Respiratory Distress, Decreased Breath Sounds (right side) Cardiovascular: Regular Rate, Rhythm, No Murmur Gastrointestinal: non tender, soft, no organomegaly Extremity: No Pedal Edema Neurologic/Psychiatric: Alert, Oriented x3 Results Lab Laboratory Tests 01/31/23 05:14: White Blood Count 23.2H, Red Blood Count 4.37, Hemoglobin 11.8L, Hematocrit 36L, Mean Corpuscular Volume 83, Mean Corpuscular Hemoglobin 27, Mean Corpuscular Hemoglobin Concent 32, Red Cell Distribution Width 13.3, Platelet Count 438H, Mean Platelet Volume 8.7L, Immature Granulocyte % (Auto) 2, Neutrophils (%) (Auto) 82H, Lymphocytes (%) (Auto) 4L, Monocytes (%) (Auto) 10, Eosinophils (%) (Auto) 2, Basophils (%) (Auto) 1, Neutrophils # (Auto) 19.1H, Lymphocytes # (Auto) 0.9L, Monocytes # (Auto) 2.3H, Eosinophils # (Auto) 0.4H, Basophils # (Auto) 0.1, Immature Granulocyte # (Auto) 0.4H, Neutrophils % (Manual) 78, Lymphocytes % (Manual) 6, Monocytes % (Manual) 13, Eosinophils % (Manual) 3, Platelet Estimate INCREASED, Hypochromasia SLIGHT, Sodium Level 135, Potassium Level 4.3, Chloride Level 97L, Carbon Dioxide Level 27, Anion Gap 11, Blood Urea Nitrogen 10, Creatinine 0.74, Estimat Glomerular Filtration Rate 111, BUN/Creatinine Ratio 14, Glucose Level 99, Calcium Level 9.6, Corrected Calcium 10.5H, Magnesium Level 2.3, Total Bilirubin 0.5, Aspartate Amino Transf (AST/SGOT) 14, Alanine Aminotransferase (ALT/SGPT) 30, Alkaline Phosphatase 102, Total Protein 6.9, Albumin 2.9L Microbiology 01/29/23 Acid Fast Bacilli Culture (Ref Lab - Preliminary, Resulted See Comments 01/26/23 Urine Culture - Final, Complete NO GROWTH 01/25/23 Gram Stain - Final, Complete 01/25/23 Sputum Culture - Final, Complete Usual upper respiratory gill YEAST 01/22/23 Blood Culture - Final, Complete No growth Assessment/Plan Assessment/Plan Assessment/Plan Pleural Effusion Right Lung mass - suggested on CT of chest Acute respiratory failure with hypoxia - stable COPD Tobacco abuse HTN Pt is doing about the same, no changes. Had a CT of chest/abd/pelvis and it shows lung mass in right lobe. His WBC also jumped back up today and he was restarted on ABX Await cytology from pleural fluid. MANOLO WOODRUFF DO Jan 31, 2023 14:03
[2023-01-31] MEDS: LIDOCAINE PATCH REMOVAL TP SCH (19:19)
[2023-02-01] MEDS: RT-ALBUTEROL/IPRATROPIUM 3 ML (DUONEB) VIAL INH SCH ×2 (02:34→07:34)
[2023-02-01 03:35] VITALS: BP 117/67
[2023-02-01 04:16] LABS: BASOPHILS # (AUTO) 0.1 10^3/uL (0.0-0.1); BASOPHILS % (AUTO) 1 % (0-10); EOSINOPHILS # (AUTO) 0.5 10^3/uL (0.0-0.3); EOSINOPHILS % (AUTO) 3 % (0-10); HEMATOCRIT 36 % (40-54); HEMOGLOBIN 11.4 g/dL (13.3-17.7); LYMPHOCYTES # (AUTO) 1.1 10^3/uL (1.0-4.0); LYMPHOCYTES % (AUTO) 6 % (12-44); MEAN CORPUSCULAR HEMOGLOBIN 27 pg (25-34); MEAN CORPUSCULAR HGB CONC 32 g/dL (32-36); MEAN CORPUSCULAR VOLUME 84 fL (80-99); MEAN PLATELET VOLUME 8.6 fL (9.0-12.2); MONOCYTES # (AUTO) 1.6 10^3/uL (0.0-1.0); MONOCYTES % (AUTO) 9 % (0-12); NEUTROPHILS # (AUTO) 14.4 10^3/uL (1.8-7.8); NEUTROPHILS % (AUTO) 80 % (42-75); PLATELET COUNT 471 10^3/uL (130-400)
[2023-02-01 04:40] LABS: ALBUMIN 2.9 GM/DL (3.2-4.5); BILIRUBIN,TOTAL 0.4 MG/DL (0.1-1.0); CALCIUM 9.4 MG/DL (8.5-10.1); CREATININE SERUM 0.8 MG/DL (0.60-1.30); MAGNESIUM 2.1 MG/DL (1.6-2.4); POTASSIUM 4.1 MMOL/L (3.6-5.0); TOTAL PROTEIN 6.9 GM/DL (6.4-8.2)
[2023-02-01] MEDS: POTASSIUM CL 10MEQ/50ML IVPB 50 ML IV SCH (05:06)
[2023-02-01] MEDS: MAGNESIUM 1 GM/100 ML IVPB 100 ML IV SCH (05:06)
[2023-02-01] MEDS: KCL 20 MEQ TAB (K-DUR) PO SCH (05:07)
[2023-02-01] MEDS: HYDROcodone/ACETAMINOPHEN 5 MG/325 MG TABLET PO PRN ×3 (05:55→14:01)
[2023-02-01] MEDS: MULTIVIT W/MINERALS TAB (THERAGRAN M) PO SCH (05:55)
[2023-02-01] MEDS: dilTIAZem 30 MG TABLET PO SCH (05:55)
[2023-02-01] MEDS: guaiFENesin/DM (ROBITUSSIN DM) 10 ML UDC PO PRN ×2 (05:55→12:46)
[2023-02-01] MEDS: CEFEPIME INJECTION 1,000 MG in NS (IVPB) 50 ML 50 ML IV SCH ×2 (05:56→12:35)
[2023-02-01 07:55] VITALS: BP 116/57
[2023-02-01] MEDS: LIDOCAINE 4% (SALONPAS) PATCH TOP SCH (08:40)
[2023-02-01] MEDS: NICOTINE 14 MG (NICODERM) PATCH TD SCH (08:40)
[2023-02-01] MEDS: AMIODARONE 200 MG TABLET PO SCH (08:41)
[2023-02-01] MEDS: FLUCONAZOLE 200 MG/100 ML 100 ML IV SCH (08:41)
[2023-02-01] MEDS: amLODIPine 10 MG TABLET PO SCH (08:41)
[2023-02-01] MEDS: PATCH REMOVAL TP SCH (08:41)
[2023-02-01] MEDS: BENZONATATE 100 MG CAPSULE PO SCH ×2 (08:41→12:35)
[2023-02-01] MEDS: lisINopril 40 MG (PRINIVIL) TABLET PO SCH (08:41)
--- NOTE | 2023-02-01 08:43 | Cardiology Progress Note ---
Subjective Date Seen by Provider: Feb 01, 2023 Time Seen by Provider: 08:15 Subjective/Events-last exam Patient sitting up in chair, no new complaints. Objective-Cardiology Exam Last Set of Vital Signs Vital Signs 01/31/23 02/01/23 02/01/23 17:25 07:36 07:55 Temp 36.8 Pulse 97 Resp 18 B/P (MAP) 116/57 (76) Pulse Ox 98 O2 Delivery Room Air O2 Flow Rate 2.00 FiO2 28 I&O Intake and Output 02/01/23 00:00 Intake Total 1500 ml Balance 1500 ml Intake Oral 1400 ml IV Total 100 ml # Voids 10 # Bowel Movements 1 General: Alert, Oriented X3, Cooperative HEENT: Atraumatic, PERRLA Neck: Supple, No JVD, No Thyromegaly Lungs: Normal Air Movement, Other (Wet rales) Heart: Regular Rate, Normal S1, Normal S2, No Murmurs Abdomen: Normal Bowel Sounds, Soft, No Tenderness, No Hepatosplenomegaly, No Masses Extremities: No Clubbing, No Cyanosis, No Edema, Normal Pulses, No Tenderness/Swelling Skin: No Rashes, No Breakdown, No Significant Lesion Neuro: Normal Gait, Normal Speech, Strength at 5/5 X4 Ext, Normal Tone, Sensation Intact Psych/Mental Status: Mental Status NL, Mood NL Results Lab Laboratory Tests 02/01/23 03:56 A/P-Cardiology Admission Diagnosis Pneumonia Sepsis Paroxysmal atrial fibrillation Hypertension Assessment/Plan Pneumonia, acute shortness of breath Reporting improvement in his dyspnea, overall improving slowly Managed by medical team. Lung mass, identified on CT scan Most probably malignant Managed by medical team Sepsis, leukocytosis Receiving antibiotic and managed by medical team Paroxysmal atrial fibrillation, new onset atrial fibrillation with rapid ventricular response Converted to sinus rhythm after receiving Cardizem drip and amiodarone bolus and a drip Tolerating Cardizem and amiodarone. Continue to monitor CHADVASC score 1, I will start patient on Xarelto 20mg daily Right side pleural effusion. Status postthoracentesis done on January 29, 2023, Managed by medical team. Continue to monitor COPD. Hypertension, maintained on metoprolol, amlodipine, lisinopril and hydralazine. Monitor blood pressure History of tobacco use. Patient educated on avoiding tobacco History of alcohol use. Educated on avoiding alcohol Hypokalemia, being replaced. Monitor electrolytes. Supervisory-Addendum Brief Supervisory Addendum Participated in pt care: history, MDM, physical Personally performed: exam, history, MDM Care discussed with: BUDDY Results interpretation: Verified all documentation Notes: Patient was seen and evaluated with Merry, examination performed, management plan was discussed, agree with the current scribed note, I made few changes to the note using Italic font Patient was seen at bedside, feeling better, breathing better Starting Xarelto and discontinue Lovenox Continue to monitor heart rate MERRY DIALLO Feb 01, 2023 08:43 ADELSO ACEVEDO MD Feb 01, 2023 08:50
--- NOTE | 2023-02-01 09:24 | Consultation - Surgery ---
History of Present Illness History of Present Illness Patient Consulted On(gómez/time) 02/01/23 09:19 Reason for Visit: Atrial fibrillation History of Present Illness Surgery asked to consult regarding pleural effusion, possible thoracentesis. HPI per ED: Patient is a 47-year-old male with a history of COPD, smoking who presents to ED with shortness of breath and cough. He states symptoms have been ongoing for the past month progressive got worse over the past week. Report mucus production with this cough. Reports bilateral rib pain secondary to the cough. Increasing short of breath with walking or lying. Denies any leg swelling. No known history of coronary artery disease, CHF. Does have a nebulizer at home but has not been using any breathing treatments. Patient states he has been using cough syrup at home to help with sleep. Patient oxygen level 88% on room air on arrival. Patient Was placed on 2 L with improvement. Decreased breath sounds bilateral. Denies fever, chills, sore throat, ear pain, headache, dizziness, chest pain. Patient does take lisinopril for hypertension. Difficulty talking in complete senses When I saw pt this afternoon, US was in the room to assess fluid in right lung. Pt stated he is still SOB, but the O2 helps. Does have some mild pain in right chest when breathing. Allergies and Home Medications Allergies Coded Allergies: No Known Drug Allergies (Unverified , 03/24/15) Patient Home Medication List Amiodarone HCl (Amiodarone HCl) 200 Mg Tablet, 200 MG PO BID Prescribed by: BENITEZ CONKLIN on 02/01/231612 Amlodipine Besylate (Amlodipine Besylate) 10 Mg Tablet, 10 MG PO DAILY Prescribed by: BENITEZ CONKLIN on 02/01/231612 Amoxicillin/Potassium Clav (Amox Tr-K Clv 875-125 mg Tab) 875 Mg-125 Mg Tablet, 1 EACH PO BID Prescribed by: BENITEZ CONKLIN on 02/01/231612 Diltiazem HCl (Diltiazem 24Hr ER) 120 Mg Cap.er.24h, 120 MG PO DAILY Prescribed by: BENITEZ CONKLIN on 02/01/231612 Lisinopril (Lisinopril) 40 Mg Tablet, 40 MG PO DAILY Prescribed by: BENITEZ CONKLIN on 02/01/231612 Metoprolol Succinate (Metoprolol Succinate) 25 Mg Tab.er.24h, 25 MG PO DAILY Prescribed by: BENITEZ CONKLIN on 02/01/23 1613 Rivaroxaban (Xarelto Tablet) 20 Mg Tablet, 20 MG PO DAILY@1700 Prescribed by: BENITEZ CONKLIN on 02/01/23 1613 Past Ycpgrad-Xdyxzj-Styota Hx Patient Social History Smoking Status: Former Smoker Alcohol Use?: Yes Immunizations Up To Date Tetanus Booster (TDap): Unknown Seasonal Allergies Seasonal Allergies: Yes Respiratory History of Respiratory Disorde: Yes Respiratory Disorders: Pneumonia, COPD Cardiovascular History of Cardiac Disorders: Yes Cardiac Disorders: Hypertension Neurological History of Neurological Disord: No Gastrointestinal History of Gastrointestinal Di: Yes Gastrointestinal Disorders: Gastroesophageal Reflux Musculoskeletal History of Musculoskeletal Dis: No Endocrine History of Endocrine Disorders: No HEENT History of HEENT Disorders: No Loss of Vision: Denies Hearing Impairment: Denies Family Medical History Significant Family History: No Pertinent Family Hx Physical Exam-General Problems Physical Exam Vital Signs Vital Signs - First Documented 01/26/23 01/26/23 01/28/23 00:00 08:00 12:18 Temp 36.6 Pulse 86 Resp 30 B/P (MAP) 120/81 (94) Pulse Ox 94 O2 Delivery High Flow N/C O2 Flow Rate 3.00 FiO2 30 Capillary Refill : Less Than 3 Seconds Data Review Labs Laboratory Tests 02/01/23 03:56: White Blood Count 18.0H, Red Blood Count 4.25L, Hemoglobin 11.4L, Hematocrit 36L , Mean Corpuscular Volume 84, Mean Corpuscular Hemoglobin 27, Mean Corpuscular Hemoglobin Concent 32, Red Cell Distribution Width 13.5, Platelet Count 471H, Mean Platelet Volume 8.6L, Immature Granulocyte % (Auto) 2, Neutrophils (%) (Auto) 80H, Lymphocytes (%) (Auto) 6L, Monocytes (%) (Auto) 9, Eosinophils (%) (Auto) 3, Basophils (%) (Auto) 1, Neutrophils # (Auto) 14.4H, Lymphocytes # (Auto) 1.1, Monocytes # (Auto) 1.6H, Eosinophils # (Auto) 0.5H, Basophils # (Auto) 0.1, Immature Granulocyte # (Auto) 0.3H, Sodium Level 135, Potassium Level 4.1, Chloride Level 95L, Carbon Dioxide Level 29, Anion Gap 11, Blood Urea Nitrogen 10, Creatinine 0.80, Estimat Glomerular Filtration Rate 108, BUN/Creatinine Ratio 13, Glucose Level 100, Calcium Level 9.4, Corrected Calcium 10.3H, Magnesium Level 2.1, Total Bilirubin 0.4, Aspartate Amino Transf (AST/SGOT) 33, Alanine Aminotransferase (ALT/SGPT) 42, Alkaline Phosphatase 115, Total Protein 6.9, Albumin 2.9L Microbiology 01/29/23 Acid Fast Bacilli Culture (Ref Lab - Preliminary, Resulted See Comments 01/26/23 Urine Culture - Final, Complete NO GROWTH 01/25/23 Gram Stain - Final, Complete 01/25/23 Sputum Culture - Final, Complete Usual upper respiratory gill YEAST 01/22/23 Blood Culture - Final, Complete No growth Radiology Date of Exam:01/24/23 CHEST 1 VIEW, AP/PA ONLY INDICATION: Pneumonia TECHNIQUE: Single view chest 4:32 AM CORRELATION STUDY: 01/22/2023 FINDINGS: Increasing size of now moderately large right pleural effusion along with consolidation of the right lung extending to the right lung apex. Left lung generally stable. Heart size largely obscured but appears to be enlarged. Vasculature also appears to be mildly prominent. IMPRESSION: 1. Increasing size of a now moderately large right pleural effusion along with consolidation of the right lung. Dictated by: Dictated on workstation # [id number] Dict: 01/24/23 0821 Trans: 01/24/23 0953 [id number] [id number] Interpreted by: RON DYKES DO Electronically signed by: RON DYKES DO 01/24/23 0953 Assessment/Plan Assessment/Plan Assessment/Plan Pleural Effusion Right Lung mass - suggested on CT of chest Acute respiratory failure with hypoxia - stable COPD Tobacco abuse HTN Pt is doing about the same, no changes. Had a CT of chest/abd/pelvis and it shows lung mass in right lobe. His WBC also jumped back up today and he was restarted on ABX Await cytology from pleural fluid. MANOLO WOODRUFF DO Feb 01, 2023 09:24 DENNIS,JulFeb 02, 2023 13:40
[2023-02-01] MEDS ORDERED: dilTIAZem ER 120 MG CAPSULE PO ONE (10:45)
[2023-02-01 11:05] VITALS: BP 118/61
[2023-02-01] MEDS ORDERED: RIVA20TA2 PO ×2 (12:36→16:13)
[2023-02-01] MEDS ORDERED: MTP25TSR PO ×2 (12:36→16:13)
[2023-02-01] MEDS ORDERED: AMIO200T65 PO ×2 (12:36→16:13)
[2023-02-01] MEDS ORDERED: AMLO-251 PO ×2 (12:36→16:13)
[2023-02-01] MEDS ORDERED: LISI40TA9 PO ×2 (12:36→16:13)
[2023-02-01] MEDS ORDERED: DILT-27 PO ×2 (12:36→16:13)
[2023-02-01] MEDS ORDERED: AMOX1TAB12 PO ×2 (12:36→16:13)
--- NOTE | 2023-02-01 13:01 | Physical Therapy Progress Note ---
Therapy Progress Note Patient is currently up independently in his room and declined skilled PT need. RN notified. MOHINDER PEDRO PT Feb 01, 2023 13:01
--- NOTE | 2023-02-01 14:10 | Progress Note - Surgery ---
Subjective Time Seen by a Provider: 11:21 Subjective/Events-last exam Pt seen and examined, states breathing is the same. He wants to go home. Review of Systems General: No Chills, No Night Sweats Pulmonary: Dyspnea, Cough Cardiovascular: No: Chest Pain, Palpitations Gastrointestinal: No: Nausea, Vomiting, Abdominal Pain Objective Exam Vital Signs Date Time Temp Pulse Resp B/P (MAP) Pulse Ox O2 Delivery O2 Flow Rate FiO2 02/01/23 12:02 90 02/01/23 11:05 36.6 89 18 118/61 (80) 97 2.00 02/01/23 08:00 Nasal Cannula 2.00 02/01/23 07:55 36.8 97 18 116/57 (76) 98 Room Air 02/01/23 07:36 92 Nasal Cannula 2.00 02/01/23 07:03 94 02/01/23 03:35 36.4 95 22 117/67 (84) 95 Nasal Cannula 2.00 2.00 02/01/23 01:00 80 01/31/23 23:27 36.4 92 22 126/75 (92) 98 Nasal Cannula 2.00 2.00 01/31/23 20:00 Nasal Cannula 2.00 01/31/23 19:56 36.8 96 22 110/55 (73) 97 Nasal Cannula 2.00 01/31/23 19:32 92 Nasal Cannula 2.00 01/31/23 19:00 91 01/31/23 17:25 36.8 87 95 28 01/31/23 15:36 36.8 87 20 111/74 (86) 95 Nasal Cannula 2.00 I & O 02/01/23 07:00 Intake Total 1350 ml Balance 1350 ml Capillary Refill : Less Than 3 Seconds General Appearance: No Apparent Distress, Chronically ill HEENT: PERRL/EOMI Respiratory: Lungs Clear, No Accessory Muscle Use, No Respiratory Distress, Decreased Breath Sounds (right side) Cardiovascular: Regular Rate, Rhythm, No Murmur Gastrointestinal: non tender, soft, no organomegaly Extremity: No Pedal Edema Neurologic/Psychiatric: Alert, Oriented x3 Results Lab Laboratory Tests 02/01/23 03:56: White Blood Count 18.0H, Red Blood Count 4.25L, Hemoglobin 11.4L, Hematocrit 36L , Mean Corpuscular Volume 84, Mean Corpuscular Hemoglobin 27, Mean Corpuscular Hemoglobin Concent 32, Red Cell Distribution Width 13.5, Platelet Count 471H, Mean Platelet Volume 8.6L, Immature Granulocyte % (Auto) 2, Neutrophils (%) (Auto) 80H, Lymphocytes (%) (Auto) 6L, Monocytes (%) (Auto) 9, Eosinophils (%) (Auto) 3, Basophils (%) (Auto) 1, Neutrophils # (Auto) 14.4H, Lymphocytes # (Auto) 1.1, Monocytes # (Auto) 1.6H, Eosinophils # (Auto) 0.5H, Basophils # (Auto) 0.1, Immature Granulocyte # (Auto) 0.3H, Sodium Level 135, Potassium Level 4.1, Chloride Level 95L, Carbon Dioxide Level 29, Anion Gap 11, Blood Urea Nitrogen 10, Creatinine 0.80, Estimat Glomerular Filtration Rate 108, BUN/Creatinine Ratio 13, Glucose Level 100, Calcium Level 9.4, Corrected Calcium 10.3H, Magnesium Level 2.1, Total Bilirubin 0.4, Aspartate Amino Transf (AST/SGOT) 33, Alanine Aminotransferase (ALT/SGPT) 42, Alkaline Phosphatase 115, Total Protein 6.9, Albumin 2.9L Microbiology 01/29/23 Acid Fast Bacilli Culture (Ref Lab - Preliminary, Resulted See Comments 01/26/23 Urine Culture - Final, Complete NO GROWTH 01/25/23 Gram Stain - Final, Complete 01/25/23 Sputum Culture - Final, Complete Usual upper respiratory gill YEAST 01/22/23 Blood Culture - Final, Complete No growth Assessment/Plan Assessment/Plan Assessment/Plan Pleural Effusion Right Lung mass - suggested on CT of chest Acute respiratory failure with hypoxia - stable COPD Tobacco abuse HTN Pt is doing about the same, no changes. Pt needs biopsy of lung mass in right lobe; can be done as outpt. Home on oral ABX, will need to get cytology from pleural fluid. MANOLO WOODRUFF DO Feb 01, 2023 14:10
[2023-02-01] MEDS ORDERED: RIVAROXABAN 20 MG TABLET (XARELTO) PO SCH (17:00)
--- NOTE | 2023-02-01 20:33 | Discharge Summary ---
Discharge Summary Hospital Course Problems/Dx: (1) Sepsis Status: Acute (2) Pneumonia Status: Acute (3) Acute respiratory failure with hypoxia Status: Acute (4) COPD (chronic obstructive pulmonary disease) Status: Chronic (5) Tobacco abuse Status: Chronic (6) HTN (hypertension) Status: Acute Qualifiers: Qualified Codes: I10 - Essential (primary) hypertension (7) Pleural effusion Status: Acute (8) Right lower lobe lung mass Status: Acute Hospital Course Date of Admission: Jan 22, 2023 at 14:49 Admission Diagnosis : Sepsis due to pneumonia Family Physician/Provider: JalynLocal Physician Date of Discharge: 02/01/23 Discharge Diagnosis: Right lung mass, sepsis due to pneumonia, pleural effusion, acute respiratory failure with hypoxia Hospital Course: Song Albarado is a 47 year old male who was admitted wt sepsis due to pneumonia. He was started on IV fluids and antibiotics. He was also hypoxic. He required ICU admission for high flow oxygen. He also had a pleural effusion. Surgery was consulted and performed thoracentesis. Cytology is pending. He had a CT which revealed a large right lower lobe lung mass with mediastinal and bilateral hilar lymphadenopathy. Oncology was consulted and Dr. Al assisted with his care. He recommended bone scan, MRI, and lung biopsy. The patient refused to stay for further workup of the mass while inpatient. The case was discussed with Dr. Dominguez and he recommended PET CT prior to biopsy. A whole body PET was ordered to be completed outpatient. He will follow up with Dr. Dominguez for the biopsy. He will follow up with Dr. Al for further treatment. He has not been seen at [facility] for the past year. He needs to re-establish with his PCP. He had not been taking his blood pressure medications and those were restarted. He was given a course of Augmentin to complete outpatient. His course was also complicated by new onset AFib with RVR. He was started on IV Cardizem and Amiodarone and converted back to normal sinus rhythm. He was continued on Amiodarone and Metop rolol. He should start Xarelto after undergoing lung biopsy. He was requiring 2 L oxygen continuously and 4 L with activity. He was set up with home oxygen. He is currently uninsured and is in the process of reapplying for Medicaid. He was discharged home in improved condition. Labs and Pending Lab Test: Laboratory Tests 02/01/23 03:56: White Blood Count 18.0H, Red Blood Count 4.25L, Hemoglobin 11.4L, Hematocrit 36L , Mean Corpuscular Volume 84, Mean Corpuscular Hemoglobin 27, Mean Corpuscular Hemoglobin Concent 32, Red Cell Distribution Width 13.5, Platelet Count 471H, Mean Platelet Volume 8.6L, Immature Granulocyte % (Auto) 2, Neutrophils (%) (Auto) 80H, Lymphocytes (%) (Auto) 6L, Monocytes (%) (Auto) 9, Eosinophils (%) (Auto) 3, Basophils (%) (Auto) 1, Neutrophils # (Auto) 14.4H, Lymphocytes # (Auto) 1.1, Monocytes # (Auto) 1.6H, Eosinophils # (Auto) 0.5H, Basophils # (Auto) 0.1, Immature Granulocyte # (Auto) 0.3H, Sodium Level 135, Potassium Level 4.1, Chloride Level 95L, Carbon Dioxide Level 29, Anion Gap 11, Blood Urea Nitrogen 10, Creatinine 0.80, Estimat Glomerular Filtration Rate 108, BUN/Creat inine Ratio 13, Glucose Level 100, Calcium Level 9.4, Corrected Calcium 10.3H, Magnesium Level 2.1, Total Bilirubin 0.4, Aspartate Amino Transf (AST/SGOT) 33, Alanine Aminotransferase (ALT/SGPT) 42, Alkaline Phosphatase 115, Total Protein 6.9, Albumin 2.9L Microbiology 01/29/23 Acid Fast Bacilli Culture (Ref Lab - Preliminary, Resulted See Comments 01/26/23 Urine Culture - Final, Complete NO GROWTH 01/25/23 Gram Stain - Final, Complete 01/25/23 Sputum Culture - Final, Complete Usual upper respiratory gill YEAST 01/22/23 Blood Culture - Final, Complete No growth Home Meds Active Amox Tr-K Clv 875-125 mg Tab (Amoxicillin/Potassium Clav) 875 Mg-125 Mg Tablet 1 Each PO BID 5 Days Xarelto Tablet (Rivaroxaban) 20 Mg Tablet 20 Mg PO DAILY@1700 30 Days BEGIN AFTER LUNG BIOPSY Lisinopril 40 Mg Tablet 40 Mg PO DAILY 30 Days Diltiazem 24Hr ER (Diltiazem HCl) 120 Mg Cap.er.24h 120 Mg PO DAILY 30 Days Amlodipine Besylate 10 Mg Tablet 10 Mg PO DAILY 30 Days Metoprolol Succinate 25 Mg Tab.er.24h 25 Mg PO DAILY 30 Days Amiodarone HCl 200 Mg Tablet 200 Mg PO BID 30 Days Assessment/Pt Instructions See instructions Discharge Planning: >30 minutes discharge planning Discharge Instructions Discharge Diet: No Restrictions Activity as Tolerated: Yes Consultations Surgery, TeleICU, Cardiology Discharge Physical Examination Vital Signs Vital Signs Date Time Temp Pulse Resp B/P (MAP) Pulse Ox O2 Delivery O2 Flow Rate FiO2 02/01/23 14:35 02/01/23 12:02 90 02/01/23 11:05 36.6 18 97 2.00 02/01/23 08:00 Nasal Cannula 01/31/23 17:25 28 General Appearance: No Apparent Distress, WD/WN Respiratory: Lungs Clear, No Respiratory Distress Cardiovascular: Regular Rate, Rhythm, No Murmur Gastrointestinal: Normal Bowel Sounds, Soft Extremity: Normal Inspection, No Pedal Edema Skin: Normal Color, Warm/Dry Neurologic/Psychiatric: Alert, No Motor/Sensory Deficits, Other (irritable, agitated) Allergies: Coded Allergies: No Known Drug Allergies (Unverified , 03/24/15) Copy Copies To 1: SUSY AL MD Copies To 2: [facility] [place] Date of Admission Jan 22, 2023 at 14:49 Date of Discharge Feb 01, 2023 at 14:38 Discharge Date: Feb 01, 2023 Discharge Time: 14:38 Admission Diagnosis Sepsis due to pneumonia Consults/Procedures Consulations Surgery, Cardiology, TeleICU Procedures Thoracentesis Discharge Diagnosis Right lower lobe lung mass Sepsis due to pneumonia Acute respiratory failure with hypoxia Pleural effusion COPD Tobacco abuse HTN (1) Sepsis Status: Acute (2) Pneumonia Status: Acute (3) Acute respiratory failure with hypoxia Status: Acute (4) COPD (chronic obstructive pulmonary disease) Status: Chronic (5) Tobacco abuse Status: Chronic (6) Parapneumonic effusion Status: Acute (7) HTN (hypertension) Status: Acute Qualifiers: Qualified Codes: I10 - Essential (primary) hypertension (8) Pleural effusion Status: Acute (9) Right lower lobe lung mass Status: Acute BENITEZ CONKLIN MD Feb 01, 2023 20:32
[2023-02-02] MEDS ORDERED: dilTIAZem ER 120 MG CAPSULE PO SCH (09:00)
== END 2023-02-01 14:38 | disposition home or self-care (01) | DRG 871 ==
LOC: EDUNIT# 11:29 → ER 11:32 → ICU 14:49 → 4TH 01-27 12:45
PROVIDERS: ADMIT Internal Medicine; ATTEND Internal Medicine
PROC: 5A0945A Assistance with Respiratory Ventilation, 24-96 Consecutive Hours, High Flow/Velocity Cannula (ICD-10-PCS; 2023-01-23)
PROC: 0W993ZZ Drainage of Right Pleural Cavity, Percutaneous Approach (ICD-10-PCS; principal; 2023-01-29)
DX: A41.9 Sepsis, unspecified organism (principal); J18.9 Pneumonia, unspecified organism; J96.01 Acute respiratory failure with hypoxia; J44.0 Chronic obstructive pulmonary disease with (acute) lower respiratory infection; J44.1 Chronic obstructive pulmonary disease with (acute) exacerbation; J90 Pleural effusion, not elsewhere classified; I11.0 Hypertensive heart disease with heart failure; I50.9 Heart failure, unspecified; E87.6 Hypokalemia; Z20.822 Contact with and (suspected) exposure to COVID-19; I25.10 Atherosclerotic heart disease of native coronary artery without angina pectoris; I48.0 Paroxysmal atrial fibrillation; R73.9 Hyperglycemia, unspecified; K21.9 Gastro-esophageal reflux disease without esophagitis; R91.8 Other nonspecific abnormal finding of lung field; R59.0 Localized enlarged lymph nodes; F17.200 Nicotine dependence, unspecified, uncomplicated
CPT/HCPCS: 36415; 36600; 71045; 71275; 74178; 80053; 81000; 82805; 82945; 82947; 83605; 83735; 83880; 84100; 84157; 84484; 85007; 85025; 85027; 85610; 85730; 87040; 87070; 87075; 87081; 87088; 87116; 87205; 87206; 87636; 89051; 93005; 93306; 94640; 94664; 94760; 94761; 96374; 96375

== ENCOUNTER 2023-02-08 13:33 | Outpatient (RCR) | payer SELFPAY ==
[~2023-02-08 13:33] MED LIST changes: +AMIO200T65 PO; +AMLO-251 PO; +AMOX1TAB12 PO; +DILT-27 PO; +LISI40TA9 PO; +MTP25TSR PO; +RIVA20TA2 PO
== END 2023-03-03 | disposition home or self-care (01) ==
LOC: ONC 13:33
PROVIDERS: ATTEND Internal Medicine Hematology & Oncology
DX: C34.91 Malignant neoplasm of unspecified part of right bronchus or lung (principal)
CPT/HCPCS: 99204

== ENCOUNTER → 2023-02-17 | Outpatient (CLI) | payer SELFPAY ==
[2023-02-17] VITALS (11 sets, daily range): BP systolic 103–143; BP diastolic 62–92
[~2023-02-17] VITALS: Ht 177 cm; Wt 67.4 kg
[~2023-02-17] MED LIST changes: +HYDROcodone/ACETAMINOPHEN 5 MG/325 MG TABLET PO PRN; +LIDOCAINE 1% INJ 10 ML VIAL INJ ONE; +MIDAZOLAM INJ 2 MG/2 ML VIAL IVP ONE; +NS IV 1000 ML 1,000 ML IV STA; +fentaNYL INJECTION 100 MCG/2 ML VIAL IVP ONE
[2023-02-17 08:46] LABS: HEMATOCRIT 33 % (40-54); HEMOGLOBIN 10.1 g/dL (13.3-17.7); MEAN CORPUSCULAR HEMOGLOBIN 25 pg (25-34); MEAN CORPUSCULAR HGB CONC 31 g/dL (32-36); MEAN CORPUSCULAR VOLUME 82 fL (80-99); MEAN PLATELET VOLUME 8.2 fL (9.0-12.2); PLATELET COUNT 403 10^3/uL (130-400); WHITE BLOOD COUNT 12.9 10^3/uL (4.3-11.0)
[2023-02-17 09:03] LABS: INR 1.1 (0.8-1.4); PROTHROMBIN TIME PATIENT 14.7 SEC (12.2-14.7)
--- NOTE | 2023-02-17 10:48 | Pre-Op Note & Conscious Sedat ---
Pre-Operative Progress Note Date of Available H&P: Feb 17, 2023 Date H&P Reviewed: Feb 17, 2023 Time H&P Reviewed: 09:00 Pre-Op Diagnosis: lung mass Moderate Sedation PreProcedure Time 09:00 ASA Score 2 Airway Lungs Heart ASA score ASA 1: a normal healthy patient ASA 2: a patient with a mild systemic disease (mid diabetes, controlled hypertension, obesity ASA 3: a patient with a severe systemic disease that limits activity (angina, COPD, prior Myocardial infarction) ASA 4: a patient with an incapacitating disease that is a constant threat to life (CHF, renal failure) ASA 5: a moribund patient not expected to survive 24 hrs. (ruptured aneurysm) ASA 6: a declared brain- patient whose organs are being harvested. For emergent operations, add the letter E after the classification Mallampati Classification Grade 2 Sedation Plan Analgesia, Amnesia, Plan communicated to team members, Discussed options with patient/fam, Discussed risks with patient/fam The patient is an appropriate candidate to undergo the planned procedure, sedation, and anesthesia. The patient immediately re-assessed prior to indication. YING THOMPSON MD Feb 17, 2023 10:48
--- NOTE | 2023-02-17 12:00 | Diagnostic Imaging Report ---
INDICATION: Right lung mass. Patient presents for CT-guided biopsy. Patient brought to the CT suite placed on table in left side down decubitus position. Axial imaging through the chest was performed to evaluate appropriate entry site. Procedure was performed utilizing conscious sedation with radiology nursing and constant patient monitoring. Patient was given a total of 2 mg of Versed intravenously and 50 mcg of fentanyl intravenously. Total procedure time is approximately 13 minutes. The right posterior thorax was prepped and draped usual sterile fashion. Small amount 1% lidocaine was utilized for local anesthesia. 18-gauge coaxial Temno needle was advanced from a posterior approach and placed to the right lower lobe. 4 core biopsies were obtained. Blood patch was injected during needle removal. Hemostasis was obtained using manual compression. Follow-up imaging shows no complicating features. Patient tolerated the procedure well and left the department in stable condition. IMPRESSION: Successful CT-guided right lung biopsy utilizing conscious sedation. Pathology results are currently pending. TECHNIQUE: All CT scans use one or more of the following dose optimizing techniques: automated exposure control, MA and/or KvP adjustment based on patient size and exam type or iterative reconstruction. Dictated by: Dictated on workstation # [id number]
--- NOTE | 2023-02-17 13:16 | Diagnostic Imaging Report ---
INDICATION: Status post right lung biopsy. Expiratory radiograph of the chest was obtained after patient underwent right lung biopsy. No pneumothorax identified. Consolidation/mass right base is again noted. Left lung is clear. IMPRESSION: No evidence of pneumothorax, status post right lung biopsy. Dictated by: Dictated on workstation # [id number]
== END ==
LOC: SDC 08:09
PROVIDERS: ATTEND Internal Medicine Hematology & Oncology
DX: C34.90 Malignant neoplasm of unspecified part of unspecified bronchus or lung (principal); Z98.890 Other specified postprocedural states
CPT/HCPCS: 36415; 71045; 77012; 85027; 85610; 85730; 99156

== ENCOUNTER 2023-02-23 15:50 | Emergency (ER) | payer SELFPAY ==
[~2023-02-23] VITALS: Ht 167 cm; Wt 63.0 kg
[~2023-02-23 15:50] MED LIST changes: -HYDROcodone/ACETAMINOPHEN 5 MG/325 MG TABLET PO PRN; -LIDOCAINE 1% INJ 10 ML VIAL INJ ONE; -MIDAZOLAM INJ 2 MG/2 ML VIAL IVP ONE; -NS IV 1000 ML 1,000 ML IV STA; -fentaNYL INJECTION 100 MCG/2 ML VIAL IVP ONE
[2023-02-23] MEDS ORDERED: EPINEPHrine 0.1 MG/ML 10 ML EMERGENCY SYR INJ ONE ×2 (15:52)
[2023-02-23] MEDS ORDERED: NS IV 1000 ML 1,000 ML IV STA (16:08)
[2023-02-23] MEDS ORDERED: NS IV 1000 ML 1,000 ML ONE (16:10)
[2023-02-23 16:15] LABS: BASOPHILS # (AUTO) 0.3 10^3/uL (0.0-0.1); BASOPHILS % (AUTO) 1 % (0-10); EOSINOPHILS % (AUTO) 4 % (0-10); HEMATOCRIT 35 % (40-54); HEMOGLOBIN 9.9 g/dL (13.3-17.7); LYMPHOCYTES # (AUTO) 7.4 10^3/uL (1.0-4.0); LYMPHOCYTES % (AUTO) 28 % (12-44); MEAN CORPUSCULAR HEMOGLOBIN 25 pg (25-34); MEAN CORPUSCULAR HGB CONC 28 g/dL (32-36); MEAN CORPUSCULAR VOLUME 90 fL (80-99); MEAN PLATELET VOLUME 8.7 fL (9.0-12.2); MONOCYTES # (AUTO) 2.9 10^3/uL (0.0-1.0); MONOCYTES % (AUTO) 11 % (0-12); NEUTROPHILS # (AUTO) 14.2 10^3/uL (1.8-7.8); NEUTROPHILS % (AUTO) 54 % (42-75); PLATELET COUNT 544 10^3/uL (130-400); WHITE BLOOD COUNT 26.4 10^3/uL (4.3-11.0)
[2023-02-23 16:19] LABS: ALBUMIN 3.4 GM/DL (3.2-4.5); CHLORIDE 104 MMOL/L (98-107); SODIUM 142 MMOL/L (135-145)
[2023-02-23 16:20] LABS: CALCIUM 9.5 MG/DL (8.5-10.1)
[2023-02-23 16:21] LABS: GLUCOSE 175 MG/DL (70-105); TOTAL PROTEIN 6.9 GM/DL (6.4-8.2)
[2023-02-23 16:22] LABS: CARBON DIOXIDE 16 MMOL/L (21-32)
[2023-02-23 16:23] LABS: BILIRUBIN,TOTAL 0.3 MG/DL (0.1-1.0)
[2023-02-23 16:25] LABS: ALKALINE PHOSPHATASE 72 U/L (40-136); CREATININE SERUM 1.13 MG/DL (0.60-1.30); GFR ESTIMATED 80
[2023-02-23 16:26] LABS: BUN/CREATININE RATIO 9
[2023-02-23 16:28] LABS: ALANINE AMINOTRANSFERASE 16 U/L (0-55); MAGNESIUM 2.6 MG/DL (1.6-2.4)
[2023-02-23 16:29] LABS: LIPASE 11 U/L (8-78)
--- NOTE | 2023-02-23 16:34 | Diagnostic Imaging Report ---
CLINICAL INDICATIONS: Post CODE. Post intubation. EXAM: Portable chest x-ray supine view. COMPARISONS: Chest x-ray dated 01/29/2023. FINDINGS: Stable hyperinflated left lung. There is minimal atelectasis versus infiltrate in left lung base. Stable elevation right hemidiaphragm. There is right pleural effusion again noted. There is slight progression of mild right lung base atelectasis versus infiltrate. Pulmonary vasculature is within normal limits. Cardiac silhouette is partially obscured, but appears stable. ET tube is been placed in interim with tip in good position at the upper T4 vertebral body level. There is curvilinear area overlying the mediastinal region which stops overlying the lower mediastinal region. Correlation for feeding tube versus object outside of patient is suggested. IMPRESSION: 1: There is interval placement of ET tube in good position. 2: There is a curvilinear object overlying the mediastinal region with distal portion overlying the lower mediastinal region. Unknown if this represents a feeding tube with tip in the distal esophagus versus object outside of patient. 3: There is right pleural effusion with slight progression of mild right basilar atelectasis versus infiltrate. 4: There is mild left basilar atelectasis versus infiltrates. Dictated by: Dictated on workstation # [id number]
--- NOTE | 2023-02-23 16:37 | ED CPR ---
HPI-CPR General Chief Complaint: Code Blue Stated Complaint: CODE | LUNG CANCER Nursing Triage Note: ARRIVES TO ED ROOM 1 WITH CPR IN PROGRESS AND BEING BAGGED. Source of Information: EMS, Family Exam Limitations: Other (unresponsive) History of Present Illness Date Seen by Provider: Feb 23, 2023 Time Seen by Provider: 15:50 Initial Comments 47-year-old male with reported recent lung cancer diagnosis coming in via EMS coding. Reportedly, family heard a thump, they ran to the room and he was unresponsive. On EMS arrival he had agonal respirations and weak pulse. Lost the pulse on route and initially was PEA followed by asystole. They placed an LMA and started CPR. He had 2 rounds of epinephrine prior to arrival. Glucose for them was just under 200. Per EMS, he does not have any kidney issues. Fu rther elements of the history and physical were unable to be obtained due to the acuity of the situation and the patient was unresponsive. Allergies and Home Medications Allergies Coded Allergies: No Known Drug Allergies (Unverified , 02/23/23) Patient Home Medication List Home Medication List Reviewed: Yes Amiodarone HCl (Amiodarone HCl) 200 Mg Tablet, 200 MG PO BID Prescribed by: BENITEZ CONKLIN on 02/01/231612 Amlodipine Besylate (Amlodipine Besylate) 10 Mg Tablet, 10 MG PO DAILY Prescribed by: BENITEZ CONKLIN on 02/01/231612 Amoxicillin/Potassium Clav (Amox Tr-K Clv 875-125 mg Tab) 875 Mg-125 Mg Tablet, 1 EACH PO BID Prescribed by: BENITEZ CONKLIN on 02/01/23 161 Diltiazem HCl (Diltiazem 24Hr ER) 120 Mg Cap.er.24h, 120 MG PO DAILY Prescribed by: BENITEZ CONKLIN on 02/01/23 161 Lisinopril (Lisinopril) 40 Mg Tablet, 40 MG PO DAILY Prescribed by: BENITEZ CONKLIN on 02/01/23 161 Metoprolol Succinate (Metoprolol Succinate) 25 Mg Tab.er.24h, 25 MG PO DAILY Prescribed by: BENITEZ CONKLIN on 02/01/23 161 Rivaroxaban (Xarelto Tablet) 20 Mg Tablet, 20 MG PO DAILY@1700 Prescribed by: BENITEZ CONKLIN on 02/01/23 161 Review of Systems Review of Systems Constitutional: No fever Past Ubirggi-Oovjxv-Vrkgbq Hx Immunizations Up To Date Tetanus Booster (TDap): Unknown Seasonal Allergies Seasonal Allergies: Yes Past Medical History Surgery/Hospitalization HX: LUNG CANCER, HTN, ALCOHOLIC, COPD Respiratory: Yes Pneumonia, COPD Cardiac: Yes Hypertension Neurological: No Gastrointestinal: Yes Gastroesophageal Reflux Musculoskeletal: No Endocrine: No HEENT: No Loss of Vision: Denies Hearing Impairment: Denies Family Medical History No Pertinent Family Hx Physical Exam Vital Signs Vital Signs - First Documented 02/23/23 02/23/23 02/23/23 16:15 16:24 18:50 Temp 36.4 Pulse 90 Resp 22 B/P (MAP) 146/89 Pulse Ox 100 O2 Flow Rate 100.00 FiO2 100 Capillary Refill : Height, Weight, BMI Height: 5'10" Weight: 175lbs. oz. 79.056911ck; 22.00 BMI Method:Stated General Appearance: Other (Unresponsive) HEENT: Other (LMA in place with large amount of blood coming out the mouth) Respiratory: Other (No spontaneous respirations) Cardiovascular: Other (Pulseless) Gastrointestinal: Soft Extremity: Normal Range of Motion, No Pedal Edema Neurologic/Psychiatric: Other (Unresponsive) Focused Exam Lactate Level 02/23/23 17:50: Lactic Acid Level 4.45*H Lactic Acid Level Laboratory Tests Test 02/23/23 17:50 Lactic Acid Level 4.45 MMOL/L (0.50-2.00) *H Procedures/Interventions Date of ETT Placement: Feb 23, 2023 Time of ETT Placement: 16:00 Intubation Method: orotracheal Tube Size: 7.50 Positive End Tide CO2: Yes Patient was coding while the ET tube was placed. No complications although he did have large amount of hemoptysis which was suctioned and tissue was also suctioned out of his oral airway Progress/Results/Core Measures Results/Orders Lab Results Laboratory Tests Test 02/23/23 15:51 02/23/23 16:22 02/23/23 16:25 02/23/23 16:44 Range/Units White Blood Count 26.4 H 4.3-11.0 10^3/uL Red Blood Count 3.89 L 4.30-5.52 10^6/uL Hemoglobin 9.9 L 13.3-17.7 g/dL Hematocrit 35 L 40-54 % Mean Corpuscular Volume 90 80-99 fL Mean Corpuscular Hemoglobin 25 25-34 pg Mean Corpuscular Hemoglobin Concent 28 L 32-36 g/dL Red Cell Distribution Width 13.8 10.0-14.5 % Platelet Count 544 H 130-400 10^3/uL Mean Platelet Volume 8.7 L 9.0-12.2 fL Immature Granulocyte % (Auto) 3 % Neutrophils (%) (Auto) 54 42-75 % Lymphocytes (%) (Auto) 28 12-44 % Monocytes (%) (Auto) 11 0-12 % Eosinophils (%) (Auto) 4 0-10 % Basophils (%) (Auto) 1 0-10 % Neutrophils # (Auto) 14.2 H 1.8-7.8 10^3/uL Lymphocytes # (Auto) 7.4 H 1.0-4.0 10^3/uL Monocytes # (Auto) 2.9 H 0.0-1.0 10^3/uL Eosinophils # (Auto) 1.0 H 0.0-0.3 10^3/uL Basophils # (Auto) 0.3 H 0.0-0.1 10^3/uL Immature Granulocyte # (Auto) 0.7 H 0.0-0.1 10^3/uL Neutrophils % (Manual) 60 % Lymphocytes % (Manual) 27 % Monocytes % (Manual) 8 % Eosinophils % (Manual) 5 % Basophils % (Manual) 0 % Band Neutrophils 0 % Blood Morphology Comment NORMAL D-Dimer 1.08 H 0.00-0.49 UG/ML Sodium Level 142 135-145 MMOL/L Potassium Level 4.0 3.6-5.0 MMOL/L Chloride Level 104 98-107 MMOL/L Carbon Dioxide Level 16 L 21-32 MMOL/L Anion Gap 22 H 5-14 MMOL/L Blood Urea Nitrogen 10 7-18 MG/DL Creatinine 1.13 0.60-1.30 MG/DL Estimat Glomerular Filtration Rate 80 BUN/Creatinine Ratio 9 Glucose Level 175 H 70-105 MG/DL Calcium Level 9.5 8.5-10.1 MG/DL Corrected Calcium 10.0 8.5-10.1 MG/DL Magnesium Level 2.6 H 1.6-2.4 MG/DL Total Bilirubin 0.3 0.1-1.0 MG/DL Aspartate Amino Transf (AST/SGOT) 21 5-34 U/L Alanine Aminotransferase (ALT/SGPT) 16 0-55 U/L Alkaline Phosphatase 72 40-136 U/L Troponin I < 0.028 <0.028 NG/ML C-Reactive Protein High Sensitivity 7.03 H 0.00-0.50 MG/DL B-Type Natriuretic Peptide 250.3 H <100.0 PG/ML Total Protein 6.9 6.4-8.2 GM/DL Albumin 3.4 3.2-4.5 GM/DL Lipase 11 8-78 U/L Influenza Type A (RT-PCR) Not Detected Not Detecte Influenza Type B (RT-PCR) Not Detected Not Detecte SARS-CoV-2 RNA (RT-PCR) Not Detected Not Detecte Urine Color YELLOW Urine Clarity CLEAR Urine pH 6.0 5-9 Urine Specific [place] >=1.030 1.016-1.022 Urine Protein 3+ H NEGATIVE Urine Glucose (UA) NEGATIVE NEGATIVE Urine Ketones TRACE H NEGATIVE Urine Nitrite NEGATIVE NEGATIVE Urine Bilirubin 1+ H NEGATIVE Urine Urobilinogen 4 H < = 1.0 MG/DL Urine Leukocyte Esterase NEGATIVE NEGATIVE Urine RBC (Auto) 1+ H NEGATIVE Urine RBC 5-10 H /HPF Urine WBC 5-10 H /HPF Urine Squamous Epithelial Cells NONE /HPF Urine Crystals PRESENT H /LPF Urine Amorphous Sediment MOD ALAINA URATES H /LPF Urine Bacteria FEW H /HPF Urine Casts NONE /LPF Urine Mucus NEGATIVE /LPF Urine Other MOD SPERM H /HPF Urine Culture Indicated YES Urine Opiates Screen POSITIVE H NEGATIVE Urine Oxycodone Screen POSITIVE H NEGATIVE Urine Methadone Screen NEGATIVE NEGATIVE Urine Propoxyphene Screen NEGATIVE NEGATIVE Urine Barbiturates Screen NEGATIVE NEGATIVE Ur Tricyclic Antidepressants Screen NEGATIVE NEGATIVE Urine Phencyclidine Screen NEGATIVE NEGATIVE Urine Amphetamines Screen NEGATIVE NEGATIVE Urine Methamphetamines Screen NEGATIVE NEGATIVE Urine Benzodiazepines Screen NEGATIVE NEGATIVE Urine Cocaine Screen NEGATIVE NEGATIVE Urine Cannabinoids Screen NEGATIVE NEGATIVE Blood Gas Puncture Site LEFT RADIAL Blood Gas Patient Temperature 37.3 Arterial Blood pH 7.12 *L 7.37-7.43 Arterial Blood Partial Pressure CO2 66 H 35-45 MMHG Arterial Blood Partial Pressure O2 87 79-93 MMHG Arterial Blood HCO3 21 L 23-27 MMOL/L Arterial Blood Total CO2 22.7 21.0-31.0 MMOL/L Arterial Blood Oxygen Saturation 93 L 94-100 % Arterial Blood Base Excess -7.3 L -2.5-2.5 MMOL/L Raymundo Test NA Blood Gas Ventilator Setting YES Blood Gas Inspired Oxygen 100% Test 02/23/23 17:50 02/23/23 19:01 Range/Units Lactic Acid Level 4.45 *H 0.50-2.00 MMOL/L Blood Gas Puncture Site LEFT WRIST Blood Gas Patient Temperature 36.4 Arterial Blood pH 7.26 *L 7.37-7.43 Arterial Blood Partial Pressure CO2 62 H 35-45 MMHG Arterial Blood Partial Pressure O2 40 L 79-93 MMHG Arterial Blood HCO3 27 23-27 MMOL/L Arterial Blood Total CO2 28.9 21.0-31.0 MMOL/L Arterial Blood Oxygen Saturation 56 L 94-100 % Arterial Blood Base Excess 0.4 -2.5-2.5 MMOL/L Raymundo Test NA Blood Gas Ventilator Setting YES Blood Gas Inspired Oxygen 100% My Orders Orders - MAYITO HARRIS MD Cbc With Automated Diff (02/23/23 16:05) Comprehensive Metabolic Panel (02/23/23 16:05) Fibrin Degradation Products (02/23/23 16:05) Hs C Reactive Protein (02/23/23 16:05) Ekg Tracing (02/23/23 16:05) Chest 1 View, Ap/Pa Only (02/23/23 16:05) Covid 19 Inhouse Test (02/23/23 16:05) Ed Iv/Invasive Line Start (02/23/23 16:05) Ct Angio Chest W (R/O Pe) (02/23/23 16:05) Drug Screen Stat (Urine) (02/23/23 16:05) Lactic Acid Analyzer (02/23/23 16:05) Lipase (02/23/23 16:05) Magnesium (02/23/23 16:05) Troponin I Kike (02/23/23 16:05) Ua Culture If Indicated (02/23/23 16:05) Influenza A And B By Pcr (02/23/23 16:05) Bnp Kike (02/23/23 16:05) Arterial Blood Gas (02/23/23 16:05) Ns Iv 1000 Ml (Ns Iv 1000 Ml) (02/23/23 16:08) Propofol Drip (Icu) (Diprivan Drip (Icu) (02/23/23 16:05) Ns Iv 1000 Ml (Ns Iv 1000 Ml) (02/23/23 16:10) Manual Differential (02/23/23 15:51) Propofol Drip (Icu) (Diprivan Drip (Icu) (02/23/23 16:32) Ns Iv 1000 Ml (Ns Iv 1000 Ml) (02/23/23 16:45) Cefepime Injection (Cefepime Injection) (02/23/23 16:45) Urine Culture (02/23/23 16:25) Arterial Blood Draw - Obtain (02/23/23 ) Fentanyl Injection (Fentanyl Injection (02/23/23 17:55) Midazolam Injection (Midazolam Injection (02/23/23 17:56) Iohexol Injection (Omnipaque 350 Mg/Ml 1 (02/23/23 18:30) Ns (Ivpb) 100 Ml (Sodium Chloride 0.9% 1 (02/23/23 18:30) Arterial Blood Gas (02/23/23 19:01) Epinephrine Emergency Syringe (Epinephr (02/23/23 15:52) Epinephrine Emergency Syringe (Epinephr (02/23/23 15:52) Medications Given in ED Vital Signs/I&O 02/23/23 02/23/23 02/23/23 02/23/23 16:15 16:24 16:40 18:30 Pulse 90 113 110 105 Resp 22 23 B/P (MAP) 146/89 143/91 Pulse Ox 100 100 FiO2 100 100 02/23/23 18:50 Temp 36.4 Pulse 101 Resp 22 B/P (MAP) 107/76 Pulse Ox 100 O2 Flow Rate 100.00 02/24/23 00:00 Intake Total 2050 ml Balance 2050 ml Progress Progress Note : Progress Note 47-year-old male with above history coming in cardiac arrest. The patient was pulseless on arrival asystole. CPR immediately continued per our staff. He had an LMA in place. This was transitioned to an ET tube by myself with no complication other than he did have hemoptysis which was suctioned. His oxygen saturation was 5% on arrival with a good waveform. After intubation, he went up to 100% within a minute. Pulse was regained shortly after. EKG ordered and interpreted by me showing intraventricular conduction delay, no STEMI. I personally reviewed this EKG with the coffee maker servicer on-call. Labs significant for a leukocytosis which is expected. Anemia with hemoglobin above 9, normal creatinine, negative troponin. The patient does not have any history of liver disease, very unlikely this was hematemesis. Additionally, CT imaging was done within the past month at our facility and he did not have any signs of liver disease or varices. I contacted Dr. Tejada, patient not amenable for admission to this facility due to the hemoptysis with need for specialist in regards to this. I then contacted [facility] and discussed the case with Dr. Ryan who accepts for admission to their intensive care unit. He recommends a CTA of the chest first. We will do this. I discussed that if he does have a PE, he is already on Xarelto and this would be a failure of that. Given the massive hemoptysis, I would be uncomfortable starting him on heparin drip if it was positive given the situation. Since he is not hypotensive, not hypoxic, by definition this is not a massive PE. Given that he is already on Xarelto and if this was a failure of that with a PE, he likely would need thrombectomy versus localized tPA which we are unable to do here. Patient will be transferred for further evaluation and management CTA was done prior to transfer. On my interpretation I do not see any large PE or even segmental PE. I contacted [facility] again to pass on the message to their ICU physician. Initial ECG Impression Date: Feb 23, 2023 Initial ECG Impression Time: 16:02 Initial ECG Rate: 111 Comment Interventricular conduction delay with a QRS of 136, no STEMI, results were discussed with Dr. Allison personally including him going over the EKG himself Diagnostic Imaging Diagonstic Imaging: Xray (chest) Comments [facility], [place] NAME: LUCIANO JAMES [facility] REC#: [id number] PT STATUS: REG ER : 1975 PHYSICIAN: MAYITO HARRIS MD ADMIT DATE: 02/23/23/ER Draft Date of Exam:02/23/23 CHEST 1 VIEW, AP/PA ONLY CLINICAL INDICATIONS: Post CODE. Post intubation. EXAM: Portable chest x-ray supine view. COMPARISONS: Chest x-ray dated 01/29/2023. FINDINGS: Stable hyperinflated left lung. There is minimal atelectasis versus infiltrate in left lung base. Stable elevation right hemidiaphragm. There is right pleural effusion again noted. There is slight progression of mild right lung base atelectasis versus infiltrate. Pulmonary vasculature is within normal limits. Cardiac silhouette is partially obscured, but appears stable. ET tube is been placed in interim with tip in good position at the upper T4 vertebral body level. There is curvilinear area overlying the mediastinal region which stops overlying the lower mediastinal region. Correlation for feeding tube versus object outside of patient is suggested. IMPRESSION: 1: There is interval placement of ET tube in good position. 2: There is a curvilinear object overlying the mediastinal region with distal portion overlying the lower mediastinal region. Unknown if this represents a feeding tube with tip in the distal esophagus versus object outside of patient. 3: There is right pleural effusion with slight progression of mild right basilar atelectasis versus infiltrate. 4: There is mild left basilar atelectasis versus infiltrates. Dictated on workstation # [id number] Dict: 02/23/23 1629 Trans: 02/23/23 1634 CV [id number] Interpreted by: AMARIS MCKNIGHT MD Electronically signed by: Critical Care Note Critical Care Start Time: 16:15 Stop Time: 18:00 Total Time (minutes) 44 Progress Patient was intubated and required frequent reassessment a lot of time was also spent with family and discussing the case with other physicians. All time billed for critical care was separate from procedures Departure Impression Primary Impression: Massive hemoptysis Additional Impression: Respiratory failure Qualified Codes: J96.01 - Acute respiratory failure with hypoxia Disposition: 02 XFER SHT-TRM HOSP Condition: Stable Admissions Decision to Admit/Date: Feb 23, 2023 Time/Decision to Admit Time: 17:20 Transfer Medically Cleared for Xfer: Yes Transfer Reason: Exceeds level of care (needs audiovisual production specialist) Time Spoke to Accepting Phy: 17:30 Transfer Progress Notes Excepted to Darryn by Dr. Ryan Transfer Facility: [facility] Method of Transfer: Air Departure-Patient Inst. Referrals: [facility] (PCP/Family) Primary Care Physician MAYITO HARRIS MD Feb 23, 2023 16:37
[2023-02-23 16:40] LABS: BAND NEUTROPHILS 0 %; LYMPHOCYTES % (MANUAL) 27 %; MONOCYTES % (MANUAL) 8 %; NEUTROPHILS % (MANUAL) 60 %
[2023-02-23 16:41] LABS: BASOPHILS % (MANUAL) 0 %; EOSINOPHILS % (MANUAL) 5 %; RBC MORPH NORMAL
[2023-02-23] MEDS ORDERED: NS IV 1000 ML 1,000 ML IV SCH (16:45)
[2023-02-23] MEDS ORDERED: CEFEPIME INJECTION 1,000 MG in NS (IVPB) 50 ML 50 ML IV ONE (16:45)
[2023-02-23 16:50] LABS: ABG BASE EXCESS -7.3 MMOL/L (-2.5-2.5); ABG OXYGEN SATURATION 93 % (94-100); ABG PCO2 66 MMHG (35-45); ABG PO2 87 MMHG (79-93); ABG TCO2 22.7 MMOL/L (21.0-31.0)
[2023-02-23 16:51] LABS: AMPHETAMINE SCREEN, URINE NEGATIVE (NEGATIVE); BARBITURATE SCREEN URINE NEGATIVE (NEGATIVE); BENZODIAZEPINES SCREEN URINE NEGATIVE (NEGATIVE); CANNABINOID SCREEN, URINE NEGATIVE (NEGATIVE); COCAINE SCREEN URINE NEGATIVE (NEGATIVE); METHADONE STAT NEGATIVE (NEGATIVE); OPIATE SCREEN URINE POSITIVE (NEGATIVE); OXYCODONE STAT POSITIVE (NEGATIVE); PROPOXYPHENE STAT NEGATIVE (NEGATIVE); TRICYCLIC ANTIDEPRESSANTS SCRE NEGATIVE (NEGATIVE)
[2023-02-23 16:54] LABS: BACTERIA,URINE FEW /HPF; BILIRUBIN,URINE 1+ (NEGATIVE); CLARITY,URINE CLEAR; COLOR,URINE YELLOW; GLUCOSE, URINE (UA) NEGATIVE (NEGATIVE); KETONES,URINE TRACE (NEGATIVE); LEUKOCYTE ESTERASE ,URINE NEGATIVE (NEGATIVE); NITRITE,URINE NEGATIVE (NEGATIVE); PROTEIN,URINE 3+ (NEGATIVE)
[2023-02-23 16:55] LABS: AMORPHOUS SEDIMENT,UR MOD AMOR URATES /LPF; URINE OTHER MOD SPERM /HPF
[2023-02-23 17:11] LABS: ABG PH 7.12 (7.37-7.43); INSPIRED O2 100%; PATIENT TEMP 37.3; VENTILATOR YES
[2023-02-23] MEDS ORDERED: fentaNYL INJECTION 100 MCG/2 ML VIAL ONE (17:55)
[2023-02-23] MEDS ORDERED: MIDAZOLAM INJ 5 MG/5 ML VIAL ONE (17:56)
[2023-02-23 18:30] VITALS: BP 113/72
[2023-02-23] MEDS ORDERED: NS 100 ML (IVPB) BAG IV ONE (18:30)
[2023-02-23] MEDS ORDERED: IOHEXOL 350 MG/ML 100 ML (OMNIPAQUE 350) VIAL IV ONE (18:30)
--- NOTE | 2023-02-23 18:37 | Diagnostic Imaging Report ---
EXAMINATION: CT chest, abdomen and pelvis with and without contrast. TECHNIQUE: Precontrast images were obtained of the chest, abdomen, and pelvis. Multiple contiguous axial images were obtained through the chest, abdomen, and pelvis after administration of intravenous contrast. Auto Exposure Controls were utilized during the CT exam to meet ALARA standards for radiation dose reduction. HISTORY: post code, massive hemoptysis COMPARISON: CT of the chest on 01/30/2023 FINDINGS: Acute partially occlusive pulmonary emboli within the subsegmental branches of the right lower lobe and within the subsegmental branches of the left lower lobe. No large proximal pulmonary emboli identified. No evidence of heart strain. The aorta is normal in caliber. There is aortic atherosclerosis within the aortic arch. Multiple new nodular opacities within the left lower lobe. Redemonstration of large mass within the right lower lobe with surrounding airspace opacities throughout the right lung. Small right hydropneumothorax. No left pleural effusion. Redemonstration of enlarged mediastinal lymph nodes with large right paratracheal lymph node measuring 2.0 x 1.7 cm. Subcarinal lymph node is seen measuring 3.0 x 2.2 cm. Additional enlarged mediastinal lymph nodes are noted. Included views of the abdomen demonstrates no acute abnormality. No lytic or sclerotic bone lesions within the osseous structures. IMPRESSION: Acute partially occlusive pulmonary emboli within the subsegmental branches of the right lower lobe and left lower lobe. No proximal pulmonary emboli identified. No evidence of heart strain. New nodular airspace opacities in the left lower lobe with similar appearance of the large right lower lobe lung mass with patchy airspace opacities throughout the right lung. Findings may be seen with aspiration, neoplastic process, or alveolar hemorrhage. Small right hydropneumothorax. Slightly increased mediastinal lymphadenopathy. Dictated by: Dictated on workstation # [id number]
[2023-02-23 18:50] VITALS: BP 107/76
[2023-02-23 19:14] LABS: ABG BASE EXCESS 0.4 MMOL/L (-2.5-2.5); ABG OXYGEN SATURATION 56 % (94-100); ABG PCO2 62 MMHG (35-45); ABG PH 7.26 (7.37-7.43); ABG PO2 40 MMHG (79-93); ABG TCO2 28.9 MMOL/L (21.0-31.0); INSPIRED O2 100%; PATIENT TEMP 36.4; VENTILATOR YES
== END 2023-02-23 19:20 | disposition short-term general hospital (02) ==
LOC: EDUNIT# 15:50 → ER 15:51
DX: J96.90 Respiratory failure, unspecified, unspecified whether with hypoxia or hypercapnia (principal); R04.2 Hemoptysis; Z20.822 Contact with and (suspected) exposure to COVID-19
CPT/HCPCS: 31500; 36415; 36600; 51702; 71045; 71275; 80053; 80306; 81000; 82805; 83605; 83690; 83735; 83880; 84484; 85007; 85027; 85379; 86141; 87088; 87636; 93005; 99291; 99292